=== PATIENT | male | born 1960 ===

== ENCOUNTER 2017-05-14 20:59 | Inpatient (IN) | payer SELFPAY ==
[2017-05-14] MEDS ORDERED: Sodium Chloride 0.9% 1,000 ML IV STA (21:58)
[2017-05-14 22:19] LABS: BASO % 0.5 % (0.0-2.0); EOS % 0.1 % (0.0-4.0); HEMATOCRIT 24.3 % (35.0-51.0); LYMPH # 0.4 K/uL (1.0-4.3); LYMPH % 5.6 % (20.0-40.0); MEAN CELL VOLUME 94.1 fl (80.0-94.0); MEAN CORPUSCULAR HEMOGLOBIN 29.7 pg (27.0-31.0); MEAN CORPUSCULAR HGB CONC 31.6 g/dL (33.0-37.0); MEAN PLATELET VOLUME 7.5 fl (7.2-11.7); MONO # 0.5 K/uL (0.0-0.8); MONO % 6.3 % (0.0-10.0); NEUT # 6.5 K/uL (1.8-7.0); NEUT % 87.5 % (50.0-75.0); PLATELET COUNT 187 K/uL (130-400); RED CELL DISTRIBUTION WIDTH 15.2 % (11.5-14.5); WHITE BLOOD COUNT 7.5 K/uL (4.8-10.8)
[2017-05-14] MEDS ORDERED: levoFLOXacin 750 mg in D5W 750 MG/150 ML BAG IVPB STA (22:20)
[2017-05-14 22:21] LABS: VENOUS BLOOD GAS BASE EXCESS -4.4 mmol/L (0.0-2.0); VENOUS BLOOD GAS PCO2 39 mmHg (40-60); VENOUS BLOOD PH 7.34 (7.32-7.43)
[2017-05-14] MEDS ORDERED: levoFLOXacin 500 mg in D5W 0 MG/0 ML BAG IVPB ONE (22:23)
[2017-05-14 22:25] LABS: ALB/GLOB RATIO 1.1 (1.0-2.1); BILIRUBIN,TOTAL 0.3 mg/dl (0.2-1.3); TOTAL PROTEIN 7.2 G/DL (6.3-8.2)
[2017-05-14] MEDS ORDERED: levoFLOXacin 750 mg in D5W 750 MG/150 ML BAG IVPB ONE (22:28)
[2017-05-14 22:33] LABS: CALCIUM 5.2 mg/dL (8.4-10.2)
[2017-05-14 22:51] LABS: BASOPHIL 1 % (0-2); NEUTROPHIL 90 % (42-75); TOTAL CELLS COUNTED 100
--- NOTE | 2017-05-14 22:56 | ED PDOC ---
HPI: Fever Fever Onset Was: 05/14/17 What Antipyretic Given Prior To Arrival: Unknown Have you had recent travel within the past 21 days to any of the following countries: [place], [place], [place] or [place]?: No Does Patient Have Hx Of Febrile Seizures: No Did The Patient Have A Seizure Today: No Symptoms Associated With Fever: denies: Vomiting, Diarrhea, Cough Past Medical History Vital Signs: Last Vital Signs Temp 101.5 F H 05/14/17 21:15 Pulse 110 H 05/14/17 21:15 Resp 24 05/14/17 21:15 BP 146/101 H 05/14/17 21:15 Pulse Ox 94 L 05/14/17 21:15 - Medical History PMH: HTN, Hyperlipidemia, Chronic Kidney Disease (new onset) - Surgical History Surgical History: Appendectomy - Family History Family History: States: Unknown Family Hx - Home Medications Home Medications: Ambulatory Orders Medication Instructions Recorded Calcium Acetate [Phoslo] 1 tab PO DAILY 06/21/16 Chlorthalidone [Hygroton] 25 mg PO DAILY 06/21/16 Ciprofloxacin [Cipro] 500 mg PO BID 7 Days tab 06/21/16 Lisinopril [Zestril] 20 mg PO DAILY 06/21/16 amLODIPine [Norvasc] 5 mg PO DAILY 06/21/16 - Allergies Allergies/Adverse Reactions: Allergies Allergy/AdvReac Type Severity Reaction Status Date / Time Penicillins Allergy RASH Verified 09/14/15 10:55 - Laboratory Results Result Diagrams: 05/14/17 22:02 05/14/17 22:02 - ECG O2 Sat by Pulse Oximetry: 94 Disposition - Disposition
[2017-05-14] MEDS ORDERED: Aztreonam 1 GM in Sodium Chloride 0.9% 100 ML IVPB STA (22:58)
--- NOTE | 2017-05-14 22:59 | ED PDOC ---
HPI: General Adult Time Seen by Provider: 05/14/17 21:24 Chief Complaint (Nursing): Fever Chief Complaint (Provider): Fever and Chills History Per: Patient History/Exam Limitations: no limitations Onset/Duration Of Symptoms: Hrs Have you had recent travel within the past 21 days to any of the following countries: [place], [place], [place] or [place]?: No Current Symptoms Are (Timing): Still Present Additional Complaint(s): Wero Bhatia, a 56 year old male, who has a past medical history of hypertension and hyperlipidemia presents to the ED complaining of fever and chills that started earlier today. Denies chest pain, dizziness, vomiting, diarrhea and difficulty breathing. 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 Past Medical History Reviewed: Historical Data, Nursing Documentation, Vital Signs Vital Signs: Last Vital Signs Temp 98.4 F 05/16/17 08:00 Pulse 71 05/16/17 09:00 Resp 30 H 05/16/17 09:00 BP 161/103 H 05/16/17 09:00 Pulse Ox 97 05/16/17 09:00 - Medical History PMH: HTN, Hyperlipidemia, Chronic Kidney Disease (new onset) - Surgical History Surgical History: Appendectomy - Family History Family History: States: Unknown Family Hx - Living Arrangements Living Arrangements: With Family - Home Medications Home Medications: Ambulatory Orders Medication Instructions Recorded Allopurinol [Zyloprim] 05/15/17 Atorvastatin [Lipitor] 05/15/17 Nebivolol [Bystolic] 05/15/17 oxyCODONE/Acetaminophen 1/2TAB 05/15/17 [Percocet 5-325 mg HALF TAB] - Allergies Allergies/Adverse Reactions: Allergies Allergy/AdvReac Type Severity Reaction Status Date / Time Penicillins Allergy RASH Verified 09/14/15 10:55 Review of Systems Constitutional: Positive for: Fever, Chills Respiratory: Positive for: Other (denies difficulty breathing). Negative for: Cough Gastrointestinal: Negative for: Vomiting, Diarrhea Neurological: Negative for: Dizziness Physical Exam - Reviewed Nursing Documentation Reviewed: Yes Vital Signs Reviewed: Yes - Physical Exam Appears: Positive for: Non-toxic (tremors), Uncomfortable Head Exam: Positive for: ATRAUMATIC, NORMAL INSPECTION, NORMOCEPHALIC Skin: Positive for: Normal Color, Warm, Dry. Negative for: Rash Eye Exam: Positive for: Normal appearance, EOMI, PERRL ENT: Positive for: Normal ENT Inspection (mucous membranes dry) Neck: Positive for: Normal, Painless ROM, Supple Cardiovascular/Chest: Positive for: Tachycardia. Negative for: Regular Rate, Rhythm (regular rate) Respiratory: Positive for: Respiratory Distress (mild respiratory distress), Other. Negative for: Normal Breath Sounds (Tachypneic), Rales, Rhonchi, Wheezing Gastrointestinal/Abdominal: Positive for: Normal Exam, Bowel Sounds, Soft. Negative for: Tenderness, Guarding, Rebound Back: Positive for: Normal Inspection. Negative for: L CVA Tenderness, R CVA Tenderness Extremity: Positive for: Normal ROM. Negative for: Tenderness, Deformity, Swelling Lymphatic: Positive for: Normal Exam. Negative for: Adenopathy Neurologic/Psych: Positive for: Alert, Oriented. Negative for: Gait - Laboratory Results Result Diagrams: 05/16/17 04:20 05/16/17 04:20 - ECG O2 Sat by Pulse Oximetry: 94 (RA) Pulse Ox Interpretation: Normal - Critical Care Total Time (In Min): 60 Documented Critical Care: Time excludes all time spent performint seperately billable procedures Medical Decision Making Medical Decision Makin Initial Impression 56 y/o male presenting with fever of unknown source r/o possible sepsis Differentials: Pneumonia, UTI, Influenza Initial plan: * Type and Screen * VBG * EKG * BNP * CMP * Troponin 1 * Udip * CBC * PTT * Prothrombin Time * CXR * calcium gluconate 1000mg IVP * Levaquin 750mg ini 150ml IVPB * NS 1000mls IV 1000mls/hr * Blood Culture * Urine Culture * Influenza AB * Urinalysis * Reevaluation 2229 CXR reviewed shows that there is right lower lobe and right middle infiltrate and small left lower lobe infiltrate. cardiomegaly. Diagnosis: community acquired pneumonia, CHF, CKD EKG performed: * T-wave inversions in lateral leads * Normal QRS * Rate [address] Castillo for recommends admission and consult vascular /IR tomorrow for dialysis. Admit to hospitalist clinical phlebotomist Dr Erwin Scribe Attestation Documented by Wendy Ramos acting as a scribe for Lamberto White MD. Provider Attestation All medical record entries made by the Scribe were at my direction and personally dictated by me. I have reviewed the chart and agree that the record accurately reflects my personal performance of the history, physical exam, medical decision making, and the department course for this patient. I have also personally directed, reviewed, and agree with the discharge instructions and disposition. Disposition - Clinical Impression Clinical Impression: Bilateral pneumonia, Acute kidney injury superimposed on chronic kidney disease , Sepsis, CHF (congestive heart failure) - Patient ED Disposition Is Patient to be Admitted: Yes Discussed With Dr.: Gerald Erwin Counseled Patient/Family Regarding: Studies Performed, Diagnosis - Disposition Disposition: Routine/Home Disposition Time: 22:30 Condition: GUARDED - Pt Status Changed To: Hospital Disposition Of: Inpatient - Admit Certification Admit to Inpatient:: After my assessment, the patient will require hospitalization for at least two midnights. This is because of the severity of symptoms shown, intensity of services needed, and/or the medical risk in this patient being treated as an outpatient. - POA Present On Arrival: None Core Measure Indicators: Pneumonia
[2017-05-14 23:05] LABS: PARTIAL THROMBOPLASTIN TIME 32.8 Seconds (25.6-37.1)
[2017-05-14 23:18] LABS: TROPONIN I 0.09 ng/mL (0.00-0.120)
--- NOTE | 2017-05-14 23:43 | CP.PCM.HP ---
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 He comes with 2 days of dizziness when he stands up, Fever, Chills, nausea, SOB on exertion, and Body aches. He has been having edemas to both lower extremities for more than a week. In the ED her Temperature was 101.5F and respiratory rate of 24, with a SpO2 of 92% on RA PMH: HTN, HLD, CKD; Urinary retention PSH; Appendectomy; Cystoscopy SH: No cigarette smoking; No illegal drug use; No Alcohol, Live with family FH: States: Unknown Family Hx Allergies: NKDA Medication: Reviewed Present on Admission - Present on Admission Any Indicators Present on Admission: No History of DVT/PE: No History of Uncontrolled Diabetes: No Urinary Catheter: No Decubitus Ulcer Present: No Review of Systems - Constitutional Constitutional: Chills, Fatigue, Fever, Weakness. absent: Headache - EENT Eyes: Requires Corrective Lenses. absent: Blurred Vision, Diplopia, Photophobia Ears: absent: Decreased Hearing, Ear Discharge, Ear Pain, Tinnitus Nose/Mouth/Throat: absent: Epistaxis, Nasal Congestion, Nasal Discharge, Sinus Pain, Sinus Pressure - Cardiovascular Cardiovascular: Dyspnea, Leg Edema, Lightheadedness. absent: Chest Pain, Orthopnea, Palpitations - Respiratory Respiratory: Dyspnea. absent: Cough, Dyspnea on Exertion, Wheezing, Stridor - Gastrointestinal Gastrointestinal: Constipation, Nausea, Vomiting. absent: Abdominal Pain, Diarrhea - Genitourinary Genitourinary: absent: Dysuria, Flank Pain, Hematuria, Urinary Frequency - Musculoskeletal Musculoskeletal: absent: Stiffness Additional comments: Edemas at the ankles - Integumentary Integumentary: absent: Pruritus, Rash, Skin Ulcer, Sores, Striae - Neurological Neurological: Dizziness. absent: Confusion, Focal Weakness, Headaches, Loss of Vision, Syncope, Weakness - Psychiatric Psychiatric: absent: Anxiety, Depression, Panic Attacks - Endocrine Endocrine: absent: Fatigue, Polydipsia, Polyphagia, Polyuria - Hematologic/Lymphatic Hematologic: absent: Easy Bleeding, Easy Bruising Past Patient History - Infectious Disease Hx of Infectious Diseases: None - Past Medical History & Family History Past Medical History?: Yes - Past Social History Smoking Status: Never Smoked Chewing Tobacco Use: No Cigar Use: No Alcohol: None Drugs: Denies Home Situation {Lives}: With Family - CARDIAC Hx Hypertension: Yes - PULMONARY Hx Respiratory Disorders: No - NEUROLOGICAL Hx Neurological Disorder: No - HEENT Hx HEENT Problems: No - RENAL Hx Chronic Kidney Disease: Yes (new onset) - HEMATOLOGICAL/ONCOLOGICAL Hx Blood Disorders: No - INTEGUMENTARY Hx Dermatological Problems: No - MUSCULOSKELETAL/RHEUMATOLOGICAL Hx Musculoskeletal Disorders: No - GASTROINTESTINAL Hx Gastrointestinal Disorders: No - PSYCHIATRIC Hx Substance Use: No - SURGICAL HISTORY Hx Appendectomy: Yes - ANESTHESIA Hx Anesthesia: Yes Hx Anesthesia Reactions: No Meds Allergies/Adverse Reactions: Allergies Allergy/AdvReac Type Severity Reaction Status Date / Time Penicillins Allergy RASH Verified 09/14/15 10:55 Physical Exam - Constitutional Appears: In Acute Distress - Head Exam Head Exam: ATRAUMATIC, NORMAL INSPECTION, NORMOCEPHALIC - Eye Exam Eye Exam: EOMI, Normal appearance Pupil Exam: NORMAL ACCOMODATION, PERRL - ENT Exam ENT Exam: Mucous Membranes Dry, Normal Exam, Normal External Ear Exam, Normal Oropharynx - Neck Exam Neck exam: Positive for: Full Rom, Normal Inspection - Respiratory Exam Additional comments: Inspirator crackles diffuse in both bases . - Cardiovascular Exam Cardiovascular Exam: REGULAR RHYTHM, RRR, +S1, +S2 - GI/Abdominal Exam GI & Abdominal Exam: Normal Bowel Sounds, Soft. absent: Mass, Organomegaly, Tenderness - Rectal Exam Rectal Exam: Deferred - Extremities Exam Extremities exam: Positive for: pedal edema. Negative for: calf tenderness - Back Exam Back exam: NORMAL INSPECTION. absent: CVA tenderness (L), CVA tenderness (R) - Neurological Exam Neurological exam: CN II-XII Intact, Oriented x3, Reflexes Normal - Psychiatric Exam Psychiatric exam: Normal Affect, Normal Mood - Skin Skin Exam: Dry, Intact, Normal Color, Warm Results - Vital Signs Recent Vital Signs: Last Vital Signs Temp 101.5 F H 05/14/17 21:15 Pulse 110 H 05/14/17 21:15 Resp 24 05/14/17 21:15 BP 146/101 H 05/14/17 21:15 Pulse Ox 94 L 05/14/17 23:11 - Labs Result Diagrams: 05/14/17 22:02 05/14/17 22:02 Labs: Laboratory Results - last 24 hr 05/14/17 05/14/17 05/14/17 22:02 22:02 22:02 WBC 7.5 RBC 2.59 L Hgb 7.7 L Hct 24.3 L MCV 94.1 H MCH 29.7 MCHC 31.6 L RDW 15.2 H Plt Count 187 MPV 7.5 Neut % (Auto) 87.5 H Lymph % (Auto) 5.6 L Josephine % (Auto) 6.3 Eos % (Auto) 0.1 Baso % (Auto) 0.5 Neut # 6.5 Lymph # 0.4 L Josephine # 0.5 Eos # 0.0 Baso # 0.0 Neutrophils % (Manual) 90 H Lymphocytes % (Manual) 6 L Monocytes % (Manual) 3 Basophils % (Manual) 1 Platelet Estimate Normal Hypochromasia (manual) Slight Anisocytosis (manual) Slight Macrocytosis (manual) Slight Ovalocytes Slight PT INR APTT pO2 VBG pH VBG pCO2 VBG HCO3 VBG Total CO2 VBG O2 Sat (Calc) VBG Base Excess VBG Potassium Glucose Lactate FiO2 Sodium 142 Potassium 5.0 Chloride 108 H Carbon Dioxide 19 L Anion Gap 20 BUN 71 H Creatinine 10.6 H* Est GFR ( Amer) 6 Est GFR (Non-Af Amer) 5 Random Glucose 109 Calcium 5.2 L* Total Bilirubin 0.3 AST 18 ALT 35 Alkaline Phosphatase 68 Troponin I NT-Pro-B Natriuret Pep Total Protein 7.2 Albumin 3.7 Globulin 3.5 Albumin/Globulin Ratio 1.1 Venous Blood Potassium Influenza Typ A,B (EIA) Negative for flu a/b 05/14/17 05/14/17 05/14/17 22:18 22:44 22:44 WBC RBC Hgb Hct MCV MCH MCHC RDW Plt Count MPV Neut % (Auto) Lymph % (Auto) Josephine % (Auto) Eos % (Auto) Baso % (Auto) Neut # Lymph # Josephine # Eos # Baso # Neutrophils % (Manual) Lymphocytes % (Manual) Monocytes % (Manual) Basophils % (Manual) Platelet Estimate Hypochromasia (manual) Anisocytosis (manual) Macrocytosis (manual) Ovalocytes PT 14.1 H INR 1.2 APTT 32.8 pO2 42 VBG pH 7.34 VBG pCO2 39 L VBG HCO3 20.9 VBG Total CO2 22.2 VBG O2 Sat (Calc) 89.9 H VBG Base Excess -4.4 L VBG Potassium 4.9 Glucose 114 H Lactate 1.0 FiO2 21.0 Sodium 141.0 Potassium Chloride 109.0 H Carbon Dioxide Anion Gap BUN Creatinine Est GFR ( Amer) Est GFR (Non-Af Amer) Random Glucose Calcium Total Bilirubin AST ALT Alkaline Phosphatase Troponin I 0.0900 NT-Pro-B Natriuret Pep 493999 H Total Protein Albumin Globulin Albumin/Globulin Ratio Venous Blood Potassium 4.9 Influenza Typ A,B (EIA) - Imaging and Cardiology Chest x-ray Status: Image reviewed by me Additional comment: Bilateral Alveolar/interstitial infiltrate Assessment & Plan - Assessment and Plan (Free Text) Assessment: #. Bilateral Pneumaonia #. Sepsis #. Anemia #. Acute on Chronic kidney disease Plan: 56 years old male with hx of HTN, CKD, and urinary retention. He comes with 2 days of dizziness when he stands, Fever, Chills, nausea, SOB on exertion , and Body aches. He has edemas to both lower extremities for more than a week. In the ED her Temperature was 101.5F and respiratory rate of 24, with a SpO2 of 92% on RA #. Bilateral Pneumonia - Consult Dr Pacheco Pulmonary - Levofloxacin 750mg q 48hrs - Azactam 1gm Q8hrs - Vancomycin 1gm IVPB stat dose #. Sepsis with temp of 101.5F; HR of 110; RR of 24 and Pneumonia - Treat Pneumonia - consult Dr Wray ID - follow Blood culture - Urinalysis - Urine culture and sensitivity #. Acute on Chronic kidney disease( on 04/02/17 Creatinine was 8.3 and BUN was 62 ); Now 10.6 and 71 - Consultr Dr Castillo Nephrology for Possible dialysis - consult Dr Soto vascular for AV Shunt #. Volume Overload - IV Lasix given - for Dialysis #. Anemia of Chronic Kidney disease - Type and Cross - Transfuse if Hb is less than 7g - Follow Iron profile/ B12 and folic acid #. DVT prophylaxis with SCV. No anticoagulant because of the Low Hemoglobin #. Code Status Full - Date & Time Date: 05/14/17 Time: 23:43
[2017-05-15] MEDS ORDERED: Sodium Chloride 0.9% 1,000 ML IV SCH ×2 (02:00→02:37)
[2017-05-15 04:21] VITALS: BMI 33.8
[2017-05-15 05:50] LABS: IRON 32 ug/dL (49-181)
[2017-05-15 05:51] LABS: BASO % 0.7 % (0.0-2.0); EOS # 0.1 K/uL (0.0-0.7); EOS % 1.1 % (0.0-4.0); HEMATOCRIT 23.9 % (35.0-51.0); LYMPH # 0.8 K/uL (1.0-4.3); LYMPH % 13.7 % (20.0-40.0); MEAN CELL VOLUME 94.3 fl (80.0-94.0); MEAN CORPUSCULAR HEMOGLOBIN 29.5 pg (27.0-31.0); MEAN CORPUSCULAR HGB CONC 31.3 g/dL (33.0-37.0); MEAN PLATELET VOLUME 8.6 fl (7.2-11.7); MONO # 0.4 K/uL (0.0-0.8); MONO % 7.6 % (0.0-10.0); NEUT # 4.4 K/uL (1.8-7.0); NEUT % 76.9 % (50.0-75.0); WHITE BLOOD COUNT 5.7 K/uL (4.8-10.8)
[2017-05-15 06:27] LABS: CALCIUM 5.1 mg/dL (8.4-10.2)
--- NOTE | 2017-05-15 07:10 | CP.PCM.PN ---
Subjective - Date & Time of Evaluation Date of Evaluation: 05/15/17 Time of Evaluation: 07:04 - Subjective Subjective: patient seen and examined at bedside for acute on chronic renal failure. Patient is able to lay flat no longer has orthopnea. Hemodynamically stable and in no acute distress. Denies chest pain denies dyspnea. Patient to have vascular access placed per Dr. Alexis, dialysis per Dr. Castillo. Objective - Vital Signs/Intake and Output Vital Signs (last 24 hours): Temp Pulse Resp BP Pulse Ox 98.3 F 88 22 162/105 H 97 05/15/17 06:00 05/15/17 06:00 05/15/17 06:00 05/15/17 06:00 05/15/17 06:00 Physical exam: Constitutional- cooperative, awake, alert. Head- NCAT, PERRL Eye- PERRL, normal accommodation ENT- normal exam, MMM. Neck- normal inspection, supple, no JVD Respiratory- CTAB, no wheezes rales rhonchi Cardiovascular- RRR, +S1, +S2 no MRG GI/Abdominal- normal bowel sounds, soft, no mass, no hsm Skin- warm, dry Extremities Exam- normal capillary refill, normal inspection Neurological Exam- alert, stable gait Psych- normal mood, normal affect Intake and Output: 05/15/17 05/15/17 06:59 18:59 Intake Total 500 Output Total 630 Balance -130 - Medications Medications: Current Medications Acetaminophen (Tylenol 325mg Tab) 650 mg PO Q4 PRN PRN Reason: Fever >100.4 F Amlodipine Besylate (Norvasc) 5 mg PO DAILY [facility] Aztreonam 500 mg/ Sodium (Chloride) 100 mls @ 100 mls/hr IVPB Q12 [place]EL[place] PRN Reason: Protocol Levofloxacin/Dextrose (Levaquin 500mg) 500 mg in 100 mls @ 333.333 mls/hr IVPB QOTHERDAY [facility] Sodium Chloride (Sodium Chloride 0.9%) 1,000 mls @ 40 mls/hr IV .Q24H [facility] Stop: 05/16/17 01:53 Last Admin: 05/15/17 02:49 Dose: 40 mls/hr Influenza Virus Vaccine (Afluria (Pf)(18yr & Older)) 0.5 ml IM .ONCE ONE Stop: 05/15/17 09:01 Pneumococcal Polyvalent Vaccine (Pneumovax 23 Vaccine) 0.5 ml IM .ONCE ONE Stop: 05/15/17 09:01 - Labs Labs: 05/15/17 04:30 05/15/17 04:30 PT 14.1 Seconds (9.8-13.1) H 05/14/17 22:44 INR 1.2 (0.9-1.2) 05/14/17 22:44 APTT 32.8 Seconds (25.6-37.1) 05/14/17 22:44 Assessment and Plan - Assessment and Plan (Free Text) Plan: 56 years old male with hx of HTN, CKD, and urinary retention. He comes with 2 days of dizziness when he stands, Fever, Chills, nausea, SOB on exertion , and Body aches. He has edemas to both lower extremities for more than a week. In the ED her Temperature was 101.5F and respiratory rate of 24, with a SpO2 of 92% on RA Bilateral Pneumonia - Consult Dr Pacheco Pulmonary - Levofloxacin 750mg q 48hrs - Azactam 1gm Q8hrs - Vancomycin 1gm IVPB stat dose - duo neb PRN Sepsis with temp of 101.5F; HR of 110; RR of 24 and Bilateral Pneumonia - Treat Pneumonia - consult Dr Wray ID - follow Blood culture - Urinalysis - Urine culture and sensitivity Acute on Chronic kidney disease( on 04/02/17 Creatinine was 8.3 and BUN was 62); Now 10.6 and 71 - Consultr Dr Castillo Nephrology for Possible dialysis - consult Dr Soto vascular for AV Shunt Volume Overload, dyspnea - IV Lasix given - Echo pending - for Dialysis Anemia of Chronic Kidney disease - Type and Cross - Transfuse if Hb is less than 7g - Follow Iron profile/ B12 and folic acid DVT prophylaxis with SCV. No anticoagulant because of the Low Hemoglobin Code Status Full
[2017-05-15 07:17] LABS: RBC URINE 2 /hpf (0-3); URINE BILIRUBIN NEGATIVE (NEGATIVE); URINE BLOOD NEGATIVE (NEGATIVE); URINE COLOR YELLOW (YELLOW); URINE GLUCOSE (UA) 50 mg/dL (Normal); URINE KETONE NEGATIVE (NEGATIVE); URINE LEUKOCYTE ESTERASE NEG Leu/uL (Negative); URINE PROTEIN >=500 mg/dL (NEGATIVE); URINE UROBILINOGEN 0.2-1.0 mg/dL (0.2-1.0); WBC URINE 4 /hpf (0-5)
[2017-05-15] MEDS ORDERED: Pneumococcal 23-Valent Vaccine IM ONE (09:00)
[2017-05-15] MEDS ORDERED: Influenza Vaccine 18yr & older 0.5 ML/45 MCG SYR IM ONE (09:00)
--- NOTE | 2017-05-15 09:29 | CP.PCM.CON ---
History of Present Illness - History of Present Illness History of Present Illness: Vascular Surgery- Dr. Soto 56M w/ PMHx of HTN, CKD, and urinary retention. Presented to [facility] of 2 days of dizziness, subjective fevers, nausea, shortness of breath on exertion and body aches. Vascular surgery was consulted for tentative Dialysis catheter placement due to continued elevated BUN/Cr levels. Patient currently having "the shakes" currently AAOx3 Currently denies vision changes, dumbness/tingling in extremities PMH: as stated above PSH; Appendectomy, Cystoscopy ALL: NKDA SocialHx: ETOH use, denies tobacco, recreational drug use Review of Systems - Review of Systems All systems: reviewed and no additional remarkable complaints except - Constitutional Constitutional: As Per HPI Past Patient History - Infectious Disease Hx of Infectious Diseases: None - Past Medical History & Family History Past Medical History?: Yes - Past Social History Smoking Status: Never Smoked Chewing Tobacco Use: No Cigar Use: No Alcohol: None Drugs: Denies Home Situation {Lives}: With Family - CARDIAC Hx Hypertension: Yes - PULMONARY Hx Respiratory Disorders: No - NEUROLOGICAL Hx Neurological Disorder: No - HEENT Hx HEENT Problems: No - RENAL Hx Chronic Kidney Disease: Yes (new onset) - HEMATOLOGICAL/ONCOLOGICAL Hx Blood Disorders: No - INTEGUMENTARY Hx Dermatological Problems: No - MUSCULOSKELETAL/RHEUMATOLOGICAL Hx Musculoskeletal Disorders: No - GASTROINTESTINAL Hx Gastrointestinal Disorders: No - PSYCHIATRIC Hx Substance Use: No - SURGICAL HISTORY Hx Appendectomy: Yes - ANESTHESIA Hx Anesthesia: Yes Hx Anesthesia Reactions: No Meds Allergies/Adverse Reactions: Allergies Allergy/AdvReac Type Severity Reaction Status Date / Time Penicillins Allergy RASH Verified 09/14/15 10:55 - Medications Medications: Current Medications Acetaminophen (Tylenol 325mg Tab) 650 mg PO Q4 PRN PRN Reason: Fever >100.4 F Amlodipine Besylate (Norvasc) 5 mg PO DAILY [facility] Atorvastatin Calcium (Lipitor) 10 mg PO DAILY [facility] Aztreonam 500 mg/ Sodium (Chloride) 50 mls @ 50 mls/hr IVPB Q12 [facility] PRN Reason: Protocol Levofloxacin/Dextrose (Levaquin 500mg) 500 mg in 100 mls @ 333.333 mls/hr IVPB QOTHERDAY [facility] Sodium Chloride (Sodium Chloride 0.9%) 1,000 mls @ 40 mls/hr IV .Q24H [facility] Stop: 05/16/17 01:53 Last Admin: 05/15/17 02:49 Dose: 40 mls/hr Metoprolol Tartrate (Lopressor) 100 mg PO BID [facility] Physical Exam - Constitutional Appears: Toxic, No Acute Distress, Agitated - Head Exam Head Exam: ATRAUMATIC - Eye Exam Eye Exam: Nystagmus. absent: Scleral icterus - ENT Exam ENT Exam: Mucous Membranes Moist - Respiratory Exam Respiratory Exam: Decreased Breath Sounds, NORMAL BREATHING PATTERN. absent: Accessory Muscle Use, Respiratory Distress Additional comments: bi-basilar crackles - Cardiovascular Exam Cardiovascular Exam: Tachycardia, +S1, +S2. absent: Bradycardia - GI/Abdominal Exam GI & Abdominal Exam: Normal Bowel Sounds, Soft. absent: Distended, Guarding, Hernia, Tenderness - Extremities Exam Extremities exam: Positive for: normal inspection, pedal edema Additional comments: +3 pitting pedal edema b/l - Neurological Exam Neurological exam: Alert, Oriented x3 - Psychiatric Exam Psychiatric exam: Normal Affect - Skin Skin Exam: Intact, Normal Color - Additional Findings Additional findings: pt having involuntary shaking. AAOx3. Results - Vital Signs Recent Vital Signs: Last Vital Signs Temp 98.9 F 05/15/17 08:00 Pulse 88 05/15/17 09:00 Resp 20 05/15/17 09:00 BP 160/100 H 05/15/17 09:00 Pulse Ox 100 05/15/17 09:00 - Labs Result Diagrams: 05/15/17 04:30 05/15/17 04:30 Labs: Laboratory Results - last 24 hr 05/14/17 05/14/17 05/14/17 22:02 22:02 22:02 WBC 7.5 RBC 2.59 L Hgb 7.7 L Hct 24.3 L MCV 94.1 H MCH 29.7 MCHC 31.6 L RDW 15.2 H Plt Count 187 MPV 7.5 Neut % (Auto) 87.5 H Lymph % (Auto) 5.6 L [place] % (Auto) 6.3 Eos % (Auto) 0.1 Baso % (Auto) 0.5 Neut # 6.5 Lymph # 0.4 L [place] # 0.5 Eos # 0.0 Baso # 0.0 Neutrophils % (Manual) 90 H Lymphocytes % (Manual) 6 L Monocytes % (Manual) 3 Basophils % (Manual) 1 Platelet Estimate Normal Hypochromasia (manual) Slight Anisocytosis (manual) Slight Macrocytosis (manual) Slight Ovalocytes Slight PT INR APTT pO2 VBG pH VBG pCO2 VBG HCO3 VBG Total CO2 VBG O2 Sat (Calc) VBG Base Excess VBG Potassium Glucose Lactate FiO2 Sodium 142 Potassium 5.0 Chloride 108 H Carbon Dioxide 19 L Anion Gap 20 BUN 71 H Creatinine 10.6 H* Est GFR ( Amer) 6 Est GFR (Non-Af Amer) 5 Random Glucose 109 Calcium 5.2 L* Iron TIBC % Saturation Total Bilirubin 0.3 AST 18 ALT 35 Alkaline Phosphatase 68 Troponin I NT-Pro-B Natriuret Pep Total Protein 7.2 Albumin 3.7 Globulin 3.5 Albumin/Globulin Ratio 1.1 Vitamin B12 Venous Blood Potassium Urine Color Urine Clarity Urine pH Ur Specific [place] Urine Protein Urine Glucose (UA) Urine Ketones Urine Blood Urine Nitrate Urine Bilirubin Urine Urobilinogen Ur Leukocyte Esterase Urine RBC (Auto) Urine Microscopic WBC Influenza Typ A,B (EIA) Negative for flu a/b Blood Type Blood Type Confirm Antibody Screen BBK History Checked 05/14/17 05/14/17 05/14/17 22:18 22:44 22:44 WBC RBC Hgb Hct MCV MCH MCHC RDW Plt Count MPV Neut % (Auto) Lymph % (Auto) [place] % (Auto) Eos % (Auto) Baso % (Auto) Neut # Lymph # [place] # Eos # Baso # Neutrophils % (Manual) Lymphocytes % (Manual) Monocytes % (Manual) Basophils % (Manual) Platelet Estimate Hypochromasia (manual) Anisocytosis (manual) Macrocytosis (manual) Ovalocytes PT INR APTT pO2 42 VBG pH 7.34 VBG pCO2 39 L VBG HCO3 20.9 VBG Total CO2 22.2 VBG O2 Sat (Calc) 89.9 H VBG Base Excess -4.4 L VBG Potassium 4.9 Glucose 114 H Lactate 1.0 FiO2 21.0 Sodium 141.0 Potassium Chloride 109.0 H Carbon Dioxide Anion Gap BUN Creatinine Est GFR ( Amer) Est GFR (Non-Af Amer) Random Glucose Calcium Iron TIBC % Saturation Total Bilirubin AST ALT Alkaline Phosphatase Troponin I 0.0900 NT-Pro-B Natriuret Pep 716646 H Total Protein Albumin Globulin Albumin/Globulin Ratio Vitamin B12 Venous Blood Potassium 4.9 Urine Color Urine Clarity Urine pH Ur Specific [place] Urine Protein Urine Glucose (UA) Urine Ketones Urine Blood Urine Nitrate Urine Bilirubin Urine Urobilinogen Ur Leukocyte Esterase Urine RBC (Auto) Urine Microscopic WBC Influenza Typ A,B (EIA) Blood Type A POSITIVE Blood Type Confirm Antibody Screen Negative BBK History Checked No verified bt 05/14/17 05/15/17 05/15/17 22:44 01:59 04:30 WBC RBC Hgb Hct MCV MCH MCHC RDW Plt Count MPV Neut % (Auto) Lymph % (Auto) [place] % (Auto) Eos % (Auto) Baso % (Auto) Neut # Lymph # [place] # Eos # Baso # Neutrophils % (Manual) Lymphocytes % (Manual) Monocytes % (Manual) Basophils % (Manual) Platelet Estimate Hypochromasia (manual) Anisocytosis (manual) Macrocytosis (manual) Ovalocytes PT 14.1 H INR 1.2 APTT 32.8 pO2 VBG pH VBG pCO2 VBG HCO3 VBG Total CO2 VBG O2 Sat (Calc) VBG Base Excess VBG Potassium Glucose Lactate FiO2 Sodium Potassium Chloride Carbon Dioxide Anion Gap BUN Creatinine Est GFR ( Amer) Est GFR (Non-Af Amer) Random Glucose Calcium Iron TIBC % Saturation Total Bilirubin AST ALT Alkaline Phosphatase Troponin I NT-Pro-B Natriuret Pep Total Protein Albumin Globulin Albumin/Globulin Ratio Vitamin B12 Venous Blood Potassium Urine Color Yellow Urine Clarity Clear Urine pH 6.0 Ur Specific [place] 1.013 Urine Protein >=500 Urine Glucose (UA) 50 Urine Ketones Negative Urine Blood Negative Urine Nitrate Negative Urine Bilirubin Negative Urine Urobilinogen 0.2-1.0 Ur Leukocyte Esterase Neg Urine RBC (Auto) 2 Urine Microscopic WBC 4 Influenza Typ A,B (EIA) Blood Type Blood Type Confirm A POSITIVE Antibody Screen BBK History Checked 05/15/17 05/15/17 05/15/17 04:30 04:30 04:30 WBC 5.7 RBC 2.53 L Hgb 7.5 L Hct 23.9 L MCV 94.3 H MCH 29.5 MCHC 31.3 L RDW 15.0 H Plt Count 171 MPV 8.6 Neut % (Auto) 76.9 H Lymph % (Auto) 13.7 L [place] % (Auto) 7.6 Eos % (Auto) 1.1 Baso % (Auto) 0.7 Neut # 4.4 Lymph # 0.8 L [place] # 0.4 Eos # 0.1 Baso # 0.0 Neutrophils % (Manual) Lymphocytes % (Manual) Monocytes % (Manual) Basophils % (Manual) Platelet Estimate Hypochromasia (manual) Anisocytosis (manual) Macrocytosis (manual) Ovalocytes PT INR APTT pO2 VBG pH VBG pCO2 VBG HCO3 VBG Total CO2 VBG O2 Sat (Calc) VBG Base Excess VBG Potassium Glucose Lactate FiO2 Sodium 143 Potassium 5.0 Chloride 111 H Carbon Dioxide 19 L Anion Gap 18 BUN 68 H Creatinine 10.3 H* Est GFR ( Amer) 6 Est GFR (Non-Af Amer) 5 Random Glucose 94 Calcium 5.1 L* Iron 32 L TIBC 233 L % Saturation 14 L Total Bilirubin AST ALT Alkaline Phosphatase Troponin I NT-Pro-B Natriuret Pep Total Protein Albumin Globulin Albumin/Globulin Ratio Vitamin B12 383 Venous Blood Potassium Urine Color Urine Clarity Urine pH Ur Specific [place] Urine Protein Urine Glucose (UA) Urine Ketones Urine Blood Urine Nitrate Urine Bilirubin Urine Urobilinogen Ur Leukocyte Esterase Urine RBC (Auto) Urine Microscopic WBC Influenza Typ A,B (EIA) Blood Type Blood Type Confirm Antibody Screen BBK History Checked Assessment & Plan - Assessment and Plan (Free Text) Assessment: 56M w/ CHF and Acute on Chronic Kidney Disease Plan: - temporary dialysis catheter placement today - plan for permacath and AV fistula placement tomorrow or - Medical management per ICU team - further recs per Dr. Charles Bueno PGY1
[2017-05-15] MEDS ORDERED: Albuterol-Ipratrop 3 mg / 0.5 (3 ml) UD INH PRN (10:03)
--- NOTE | 2017-05-15 11:13 | RAD ---
HISTORY: fever cough COMPARISON: No prior. FINDINGS: LUNGS: The lungs are well inflated. There is mild pulmonary venous congestion. There is airspace disease in the right perihilar region. PLEURA: No significant pleural effusion identified, no pneumothorax apparent. CARDIOVASCULAR: There is moderate cardiomegaly. OSSEOUS STRUCTURES: No significant abnormalities. VISUALIZED UPPER ABDOMEN: Normal. OTHER FINDINGS: None. IMPRESSION: Moderate cardiomegaly and mild pulmonary venous congestion. Right perihilar airspace disease is concerning for pneumonia. Follow-up is advised.
--- NOTE | 2017-05-15 11:32 | RAD ---
PROCEDURE: CHEST RADIOGRAPH, 1 VIEW HISTORY: vol overload COMPARISON: Single frontal chest 05/14/2017. FINDINGS: LUNGS: Diminishing right perihilar airspace disease. Borderline left basilar patchy airspace disease may be developing. PLEURA: No pleural effusion once again. No pneumothorax bilaterally. CARDIOVASCULAR: Cardiomegaly stable. Mild pulmonary venous congestion still question but diminished likely. Aortic ectasis again apparent. OSSEOUS STRUCTURES: No significant abnormalities. VISUALIZED UPPER ABDOMEN: Normal. OTHER FINDINGS: None. IMPRESSION: Makes pattern of borderline increased left basilar airspace disease and clearly diminished right perihilar infiltrate. Stable cardiomegaly. CHF diminished with limited residual.
[2017-05-15] MEDS ORDERED: Calcium Chloride 1000 mg/10 ml Syringe IV ONE (12:15)
--- NOTE | 2017-05-15 14:46 | CP.PCM.CON ---
History of Present Illness - History of Present Illness History of Present Illness: 56 y/o pt admitted with SOB, f/c, rigors and volume overload. Pt found to have acute on crf, pulm and peripheral edema. On eval pt in ICU. Bp mildly elevated. Pt communicating in short sentences due to sob. Pt was started on Abx and diuretics. He is scheduled for HD. Remainder of history pertained from chart. chart reviewed. discussed with RN. Review of Systems - Review of Systems Systems not reviewed;Unavailable: Acuity of Condition Past Patient History - Infectious Disease Hx of Infectious Diseases: None - Past Medical History & Family History Past Medical History?: Yes - Past Social History Smoking Status: Never Smoked Chewing Tobacco Use: No Cigar Use: No Alcohol: None Drugs: Denies Home Situation {Lives}: With Family - CARDIAC Hx Hypertension: Yes - PULMONARY Hx Respiratory Disorders: No - NEUROLOGICAL Hx Neurological Disorder: No - HEENT Hx HEENT Problems: No - RENAL Hx Chronic Kidney Disease: Yes (new onset) - HEMATOLOGICAL/ONCOLOGICAL Hx Blood Disorders: No - INTEGUMENTARY Hx Dermatological Problems: No - MUSCULOSKELETAL/RHEUMATOLOGICAL Hx Musculoskeletal Disorders: No - GASTROINTESTINAL Hx Gastrointestinal Disorders: No - PSYCHIATRIC Hx Substance Use: No - SURGICAL HISTORY Hx Appendectomy: Yes - ANESTHESIA Hx Anesthesia: Yes Hx Anesthesia Reactions: No Meds Allergies/Adverse Reactions: Allergies Allergy/AdvReac Type Severity Reaction Status Date / Time Penicillins Allergy RASH Verified 09/14/15 10:55 - Medications Medications: Current Medications Acetaminophen (Tylenol 325mg Tab) 650 mg PO Q4 PRN PRN Reason: Fever >100.4 F Albuterol/Ipratropium (Duoneb 3 Mg/0.5 Mg (3 Ml) Ud) 3 ml INH RQ4 PRN PRN Reason: Shortness of Breath Amlodipine Besylate (Norvasc) 5 mg PO DAILY [facility] Last Admin: 05/15/17 09:41 Dose: 5 mg Atorvastatin Calcium (Lipitor) 10 mg PO DAILY [facility] Last Admin: 05/15/17 09:42 Dose: 10 mg Calcium Acetate (Phoslo) 667 mg PO [facility] Aztreonam 500 mg/ Sodium (Chloride) 50 mls @ 50 mls/hr IVPB Q12 [facility] PRN Reason: Protocol Last Admin: 05/15/17 09:53 Dose: 50 mls/hr Levofloxacin/Dextrose (Levaquin 500mg) 500 mg in 100 mls @ 100 mls/hr IVPB QOTHERDAY [facility] Sodium Chloride (Sodium Chloride 0.9%) 1,000 mls @ 40 mls/hr IV .Q24H [facility] Stop: 05/16/17 01:53 Last Admin: 05/15/17 02:49 Dose: 40 mls/hr Metoprolol Tartrate (Lopressor) 100 mg PO BID [facility] Last Admin: 05/15/17 09:41 Dose: 100 mg Sevelamer Carbonate (Renvela) 0.8 gm PO TIDWM [facility] Vitamin B Complex/Vit C/Folic Acid (Nephro-Gregorio) 1 tab PO DAILY [facility] Physical Exam - Constitutional Appears: Toxic - Head Exam Head Exam: ATRAUMATIC, NORMAL INSPECTION, NORMOCEPHALIC - Eye Exam Eye Exam: EOMI, Normal appearance, PERRL Pupil Exam: NORMAL ACCOMODATION, PERRL - ENT Exam ENT Exam: Mucous Membranes Moist, Normal Exam - Neck Exam Neck exam: Positive for: Normal Inspection - Respiratory Exam Respiratory Exam: Decreased Breath Sounds, Rales, Wheezes - Cardiovascular Exam Cardiovascular Exam: Tachycardia, REGULAR RHYTHM, +S1, +S2, Systolic Murmur - GI/Abdominal Exam GI & Abdominal Exam: Normal Bowel Sounds, Soft - Rectal Exam Rectal Exam: Deferred - Extremities Exam Extremities exam: Positive for: pedal edema, pedal pulses present - Back Exam Back exam: NORMAL INSPECTION - Neurological Exam Neurological exam: Alert, Oriented x3 - Psychiatric Exam Psychiatric exam: Anxious - Skin Skin Exam: Rash Additional comments: bl odalis Results - Vital Signs Recent Vital Signs: Last Vital Signs Temp 98.9 F 05/15/17 12:00 Pulse 79 05/15/17 13:00 Resp 30 H 05/15/17 13:00 BP 155/103 H 05/15/17 13:00 Pulse Ox 92 L 05/15/17 13:00 - Labs Result Diagrams: 05/18/17 05:55 05/18/17 05:55 Labs: Laboratory Results - last 24 hr 05/14/17 05/14/17 05/14/17 22:02 22:02 22:02 WBC 7.5 RBC 2.59 L Hgb 7.7 L Hct 24.3 L MCV 94.1 H MCH 29.7 MCHC 31.6 L RDW 15.2 H Plt Count 187 MPV 7.5 Neut % (Auto) 87.5 H Lymph % (Auto) 5.6 L [place] % (Auto) 6.3 Eos % (Auto) 0.1 Baso % (Auto) 0.5 Neut # 6.5 Lymph # 0.4 L [place] # 0.5 Eos # 0.0 Baso # 0.0 Neutrophils % (Manual) 90 H Lymphocytes % (Manual) 6 L Monocytes % (Manual) 3 Basophils % (Manual) 1 Platelet Estimate Normal Hypochromasia (manual) Slight Anisocytosis (manual) Slight Macrocytosis (manual) Slight Ovalocytes Slight PT INR APTT pO2 VBG pH VBG pCO2 VBG HCO3 VBG Total CO2 VBG O2 Sat (Calc) VBG Base Excess VBG Potassium Glucose Lactate FiO2 Sodium 142 Potassium 5.0 Chloride 108 H Carbon Dioxide 19 L Anion Gap 20 BUN 71 H Creatinine 10.6 H* Est GFR ( Amer) 6 Est GFR (Non-Af Amer) 5 Random Glucose 109 Calcium 5.2 L* Iron TIBC % Saturation Total Bilirubin 0.3 AST 18 ALT 35 Alkaline Phosphatase 68 Troponin I NT-Pro-B Natriuret Pep Total Protein 7.2 Albumin 3.7 Globulin 3.5 Albumin/Globulin Ratio 1.1 Vitamin B12 Venous Blood Potassium Urine Color Urine Clarity Urine pH Ur Specific [place] Urine Protein Urine Glucose (UA) Urine Ketones Urine Blood Urine Nitrate Urine Bilirubin Urine Urobilinogen Ur Leukocyte Esterase Urine RBC (Auto) Urine Microscopic WBC Influenza Typ A,B (EIA) Negative for flu a/b Blood Type Blood Type Confirm Antibody Screen BBK History Checked 05/14/17 05/14/17 05/14/17 22:18 22:44 22:44 WBC RBC Hgb Hct MCV MCH MCHC RDW Plt Count MPV Neut % (Auto) Lymph % (Auto) [place] % (Auto) Eos % (Auto) Baso % (Auto) Neut # Lymph # [place] # Eos # Baso # Neutrophils % (Manual) Lymphocytes % (Manual) Monocytes % (Manual) Basophils % (Manual) Platelet Estimate Hypochromasia (manual) Anisocytosis (manual) Macrocytosis (manual) Ovalocytes PT INR APTT pO2 42 VBG pH 7.34 VBG pCO2 39 L VBG HCO3 20.9 VBG Total CO2 22.2 VBG O2 Sat (Calc) 89.9 H VBG Base Excess -4.4 L VBG Potassium 4.9 Glucose 114 H Lactate 1.0 FiO2 21.0 Sodium 141.0 Potassium Chloride 109.0 H Carbon Dioxide Anion Gap BUN Creatinine Est GFR ( Amer) Est GFR (Non-Af Amer) Random Glucose Calcium Iron TIBC % Saturation Total Bilirubin AST ALT Alkaline Phosphatase Troponin I 0.0900 NT-Pro-B Natriuret Pep [id number] H Total Protein Albumin Globulin Albumin/Globulin Ratio Vitamin B12 Venous Blood Potassium 4.9 Urine Color Urine Clarity Urine pH Ur Specific [place] Urine Protein Urine Glucose (UA) Urine Ketones Urine Blood Urine Nitrate Urine Bilirubin Urine Urobilinogen Ur Leukocyte Esterase Urine RBC (Auto) Urine Microscopic WBC Influenza Typ A,B (EIA) Blood Type A POSITIVE Blood Type Confirm Antibody Screen Negative BBK History Checked No verified bt 05/14/17 05/15/17 05/15/17 22:44 01:59 04:30 WBC RBC Hgb Hct MCV MCH MCHC RDW Plt Count MPV Neut % (Auto) Lymph % (Auto) [place] % (Auto) Eos % (Auto) Baso % (Auto) Neut # Lymph # [place] # Eos # Baso # Neutrophils % (Manual) Lymphocytes % (Manual) Monocytes % (Manual) Basophils % (Manual) Platelet Estimate Hypochromasia (manual) Anisocytosis (manual) Macrocytosis (manual) Ovalocytes PT 14.1 H INR 1.2 APTT 32.8 pO2 VBG pH VBG pCO2 VBG HCO3 VBG Total CO2 VBG O2 Sat (Calc) VBG Base Excess VBG Potassium Glucose Lactate FiO2 Sodium Potassium Chloride Carbon Dioxide Anion Gap BUN Creatinine Est GFR ( Amer) Est GFR (Non-Af Amer) Random Glucose Calcium Iron TIBC % Saturation Total Bilirubin AST ALT Alkaline Phosphatase Troponin I NT-Pro-B Natriuret Pep Total Protein Albumin Globulin Albumin/Globulin Ratio Vitamin B12 Venous Blood Potassium Urine Color Yellow Urine Clarity Clear Urine pH 6.0 Ur Specific [place] 1.013 Urine Protein >=500 Urine Glucose (UA) 50 Urine Ketones Negative Urine Blood Negative Urine Nitrate Negative Urine Bilirubin Negative Urine Urobilinogen 0.2-1.0 Ur Leukocyte Esterase Neg Urine RBC (Auto) 2 Urine Microscopic WBC 4 Influenza Typ A,B (EIA) Blood Type Blood Type Confirm A POSITIVE Antibody Screen BBK History Checked 05/15/17 05/15/17 05/15/17 04:30 04:30 04:30 WBC 5.7 RBC 2.53 L Hgb 7.5 L Hct 23.9 L MCV 94.3 H MCH 29.5 MCHC 31.3 L RDW 15.0 H Plt Count 171 MPV 8.6 Neut % (Auto) 76.9 H Lymph % (Auto) 13.7 L [place] % (Auto) 7.6 Eos % (Auto) 1.1 Baso % (Auto) 0.7 Neut # 4.4 Lymph # 0.8 L [place] # 0.4 Eos # 0.1 Baso # 0.0 Neutrophils % (Manual) Lymphocytes % (Manual) Monocytes % (Manual) Basophils % (Manual) Platelet Estimate Hypochromasia (manual) Anisocytosis (manual) Macrocytosis (manual) Ovalocytes PT INR APTT pO2 VBG pH VBG pCO2 VBG HCO3 VBG Total CO2 VBG O2 Sat (Calc) VBG Base Excess VBG Potassium Glucose Lactate FiO2 Sodium 143 Potassium 5.0 Chloride 111 H Carbon Dioxide 19 L Anion Gap 18 BUN 68 H Creatinine 10.3 H* Est GFR ( Amer) 6 Est GFR (Non-Af Amer) 5 Random Glucose 94 Calcium 5.1 L* Iron 32 L TIBC 233 L % Saturation 14 L Total Bilirubin AST ALT Alkaline Phosphatase Troponin I NT-Pro-B Natriuret Pep Total Protein Albumin Globulin Albumin/Globulin Ratio Vitamin B12 383 Venous Blood Potassium Urine Color Urine Clarity Urine pH Ur Specific [place] Urine Protein Urine Glucose (UA) Urine Ketones Urine Blood Urine Nitrate Urine Bilirubin Urine Urobilinogen Ur Leukocyte Esterase Urine RBC (Auto) Urine Microscopic WBC Influenza Typ A,B (EIA) Blood Type Blood Type Confirm Antibody Screen BBK History Checked Assessment & Plan (1) Volume overload Status: Acute (2) Pulmonary edema Status: Acute (3) Acute kidney injury superimposed on chronic kidney disease Status: Acute (4) Anemia of chronic disease Status: Acute (5) Sepsis Status: Acute - Assessment and Plan (Free Text) Plan: echo done today. results pending. volume overload from renal failure appears to be reason for pulm edema. will need echo to eval if cardiac etiology compounds. will not treat sbp of 150, in order to allow bp to tolerate volume removal. tele shows no arrythmias. d/w rn at length. probnp is due to volume overload and not necessarily heart failure. bc done and pending. abx started. on tylenol for fevers. still rigorous. further recs to follow.
--- NOTE | 2017-05-15 14:57 | CP.CCUPN ---
CCU Subjective - Physician Review Subjective (Free Text): 05/15/17 The Patient was seen and examined at the bedside, Medical records reviewed, and management issues were discussed and formulated with the house staff. Mr Bhatia is a 56 years old male with PMHx of hypertension, hyperlipidemia, CKD, and urinary retention. Who presented to the ER with complaint of Fever/Chills, nausea, SOB on exertion , dizziness when he stands up, and Body aches for the last 2 days. no abd pain no vomiting, No chest pain In the ED he had Temperature 101.5F CXR showed Bilateral Pneumonia Vx pulmonary edema and labs sig for acute on chronic renal failure Thompson cultures, given Lasix and started on IV antibiotics, he is currently feeling better Afebrile Underwent HD access placement and will receive emergent HD CCU Objective - Vital Signs / Intake & Output Vital Signs (Last 4 hours): Vital Signs Temp Pulse Resp BP Pulse Ox 05/15/17 13:00 79 30 H 155/103 H 92 L 05/15/17 12:00 98.9 F 83 39 H 153/101 H 99 05/15/17 11:00 91 H 26 H 153/100 H 95 Intake and Output (Last 8hrs): Intake & Output 05/14/17 05/15/17 05/15/17 22:59 06:59 14:59 Intake Total 500 230 Output Total 630 400 Balance -130 -170 Weight 325 lb 236 lb Intake: IV 130 180 Intake, Piggyback 250 50 Oral 120 Output: Urine 630 400 Urine, Voided 630 400 - Physical Exam Physical Exam Limitations: Positive for: Clinical Condition Head: Positive for: Atraumatic, Normocephalic Pupils: Positive for: PERRL. Negative for: Sluggish, Non-Reactive Extroacular Muscles: Positive for: EOMI. Negative for: Gaze Palsy, Entrapment Conjunctiva: Positive for: Normal. Negative for: Injected, Icteric Mouth: Positive for: Moist Mucous Membranes Pharnyx: Positive for: Normal. Negative for: ERYTHEMA Nose (Internal): Positive for: Normal Inspection Neck: Positive for: Normal Range of Motion, Trachea Midline. Negative for: Meningeal Signs, MIDLINE TENDERNESS, Paraspinal Tenderness, JVD, Lymphadenopathy , Bruit, Other Respiratory/Chest: Positive for: Good Air Exchange, Rales. Negative for: Respiratory Distress, Accessory Muscle Use, Wheezes, Rhonchi Cardiovascular: Positive for: Regular Rate and Rhythm, Normal S1, S2, Peripheal Pulses Present. Negative for: Murmurs, Irregular Rhythm, Tachycardic Abdomen: Positive for: Distention, Normal Bowel Sounds. Negative for: Peritoneal Signs, Guarding Neurological: Positive for: GCS=15, CN II-XII Intact, Speech Normal, Motor Func Grossly Intact, Normal Sensory Function Psychiatric: Positive for: Alert, Oriented x 3, Normal Insight, Normal Concentration - Medications Active Medications: Active Medications Generic Name Dose Route Start Last Admin Trade Name Freq PRN Reason Stop Dose Admin Acetaminophen 650 mg 05/15/17 01:12 Tylenol 325mg Tab PO Q4 PRN Fever >100.4 F Albuterol/Ipratropium 3 ml 05/15/17 10:03 Duoneb 3 Mg/0.5 Mg (3 Ml) Ud INH RQ4 PRN Shortness of Breath Amlodipine Besylate 5 mg 05/15/17 09:00 05/15/17 09:41 Norvasc PO 5 mg DAILY CANELO Administration Atorvastatin Calcium 10 mg 05/15/17 09:00 05/15/17 09:42 Lipitor PO 10 mg DAILY CANELO Administration Calcium Acetate 667 mg 05/15/17 18:30 Phoslo PO WM CANELO Aztreonam 500 mg/ Sodium 50 mls @ 50 mls/hr 05/15/17 09:00 05/15/17 09:53 Chloride IVPB 50 mls/hr Q12 CANELO Administration Protocol Levofloxacin/Dextrose 500 mg in 100 mls @ 100 mls/hr 05/16/17 22:00 Levaquin 500mg IVPB QOTHERDAY CANELO Sodium Chloride 1,000 mls @ 40 mls/hr 05/15/17 02:37 05/15/17 02:49 Sodium Chloride 0.9% IV 05/16/17 01:53 40 mls/hr .Q24H CANELO Administration Metoprolol Tartrate 100 mg 05/15/17 09:00 05/15/17 09:41 Lopressor PO 100 mg BID CANELO Administration Sevelamer Carbonate 0.8 gm 05/15/17 17:00 Renvela PO TIDWM CANELO Vitamin B Complex/Vit C/Folic Acid 1 tab 05/16/17 09:00 Nephro-Gregorio PO DAILY CANELO - Patient Studies Lab Studies: Lab Studies 05/15/17 05/15/17 05/15/17 Range/Units 04:30 04:30 04:30 WBC 5.7 (4.8-10.8) K/uL RBC 2.53 L (4.40-5.90) Mil/uL Hgb 7.5 L (12.0-18.0) g/dL Hct 23.9 L (35.0-51.0) % MCV 94.3 H (80.0-94.0) fl MCH 29.5 (27.0-31.0) pg MCHC 31.3 L (33.0-37.0) g/dL RDW 15.0 H (11.5-14.5) % Plt Count 171 (130-400) K/uL MPV 8.6 (7.2-11.7) fl Neut % (Auto) 76.9 H (50.0-75.0) % Lymph % (Auto) 13.7 L (20.0-40.0) % [place] % (Auto) 7.6 (0.0-10.0) % Eos % (Auto) 1.1 (0.0-4.0) % Baso % (Auto) 0.7 (0.0-2.0) % Neut # 4.4 (1.8-7.0) K/uL Lymph # 0.8 L (1.0-4.3) K/uL [place] # 0.4 (0.0-0.8) K/uL Eos # 0.1 (0.0-0.7) K/uL Baso # 0.0 (0.0-0.2) K/uL Neutrophils % (Manual) (42-75) % Lymphocytes % (Manual) (20-50) % Monocytes % (Manual) (0-10) % Basophils % (Manual) (0-2) % Platelet Estimate (NORMAL) Hypochromasia (manual) Anisocytosis (manual) Macrocytosis (manual) Ovalocytes PT (9.8-13.1) Seconds INR (0.9-1.2) APTT (25.6-37.1) Seconds pO2 (30-55) mm/Hg VBG pH (7.32-7.43) VBG pCO2 (40-60) mmHg VBG HCO3 mmol/L VBG Total CO2 (22-28) mmol/L VBG O2 Sat (Calc) (40-65) % VBG Base Excess (0.0-2.0) mmol/L VBG Potassium (3.6-5.2) mmol/L Glucose (75-110) mg/dL Lactate (0.7-2.1) mmol/L FiO2 % Sodium 143 (132-148) mmol/l Potassium 5.0 (3.6-5.0) MMOL/L Chloride 111 H (98-107) mmol/L Carbon Dioxide 19 L (22-30) mmol/L Anion Gap 18 (10-20) BUN 68 H (9-20) mg/dl Creatinine 10.3 H* (0.8-1.5) mg/dL Est GFR ( Amer) 6 Est GFR (Non-Af Amer) 5 Random Glucose 94 (75-110) mg/dL Calcium 5.1 L* (8.4-10.2) mg/dL Iron 32 L (49-181) ug/dL TIBC 233 L (250-450) ug/dL % Saturation 14 L (20-55) % Total Bilirubin (0.2-1.3) mg/dl AST (17-59) U/L ALT (21-72) U/L Alkaline Phosphatase (38-126) U/L Troponin I (0.00-0.120) ng/mL NT-Pro-B Natriuret Pep (0-900) pg/ml Total Protein (6.3-8.2) G/DL Albumin (3.5-5.0) g/dL Globulin (2.2-3.9) gm/dL Albumin/Globulin Ratio (1.0-2.1) Vitamin B12 383 (239-931) pg/mL Venous Blood Potassium (3.6-5.2) mmol/L Urine Color (YELLOW) Urine Clarity (Clear) Urine pH (5.0-8.0) Ur Specific [place] (1.003-1.030) Urine Protein (NEGATIVE) mg/dL Urine Glucose (UA) (Normal) mg/dL Urine Ketones (NEGATIVE) mg/dL Urine Blood (NEGATIVE) Urine Nitrate (NEGATIVE) Urine Bilirubin (NEGATIVE) Urine Urobilinogen (0.2-1.0) mg/dL Ur Leukocyte Esterase (Negative) Ariel/uL Urine RBC (Auto) (0-3) /hpf Urine Microscopic WBC (0-5) /hpf Influenza Typ A,B (EIA) (NEGATIVE) Blood Type Blood Type Confirm Antibody Screen BBK History Checked 05/15/17 05/15/17 05/14/17 Range/Units 04:30 01:59 22:44 WBC (4.8-10.8) K/uL RBC (4.40-5.90) Mil/uL Hgb (12.0-18.0) g/dL Hct (35.0-51.0) % MCV (80.0-94.0) fl MCH (27.0-31.0) pg MCHC (33.0-37.0) g/dL RDW (11.5-14.5) % Plt Count (130-400) K/uL MPV (7.2-11.7) fl Neut % (Auto) (50.0-75.0) % Lymph % (Auto) (20.0-40.0) % [place] % (Auto) (0.0-10.0) % Eos % (Auto) (0.0-4.0) % Baso % (Auto) (0.0-2.0) % Neut # (1.8-7.0) K/uL Lymph # (1.0-4.3) K/uL [place] # (0.0-0.8) K/uL Eos # (0.0-0.7) K/uL Baso # (0.0-0.2) K/uL Neutrophils % (Manual) (42-75) % Lymphocytes % (Manual) (20-50) % Monocytes % (Manual) (0-10) % Basophils % (Manual) (0-2) % Platelet Estimate (NORMAL) Hypochromasia (manual) Anisocytosis (manual) Macrocytosis (manual) Ovalocytes PT 14.1 H (9.8-13.1) Seconds INR 1.2 (0.9-1.2) APTT 32.8 (25.6-37.1) Seconds pO2 (30-55) mm/Hg VBG pH (7.32-7.43) VBG pCO2 (40-60) mmHg VBG HCO3 mmol/L VBG Total CO2 (22-28) mmol/L VBG O2 Sat (Calc) (40-65) % VBG Base Excess (0.0-2.0) mmol/L VBG Potassium (3.6-5.2) mmol/L Glucose (75-110) mg/dL Lactate (0.7-2.1) mmol/L FiO2 % Sodium (132-148) mmol/l Potassium (3.6-5.0) MMOL/L Chloride (98-107) mmol/L Carbon Dioxide (22-30) mmol/L Anion Gap (10-20) BUN (9-20) mg/dl Creatinine (0.8-1.5) mg/dL Est GFR ( Amer) Est GFR (Non-Af Amer) Random Glucose (75-110) mg/dL Calcium (8.4-10.2) mg/dL Iron (49-181) ug/dL TIBC (250-450) ug/dL % Saturation (20-55) % Total Bilirubin (0.2-1.3) mg/dl AST (17-59) U/L ALT (21-72) U/L Alkaline Phosphatase (38-126) U/L Troponin I (0.00-0.120) ng/mL NT-Pro-B Natriuret Pep (0-900) pg/ml Total Protein (6.3-8.2) G/DL Albumin (3.5-5.0) g/dL Globulin (2.2-3.9) gm/dL Albumin/Globulin Ratio (1.0-2.1) Vitamin B12 (239-931) pg/mL Venous Blood Potassium (3.6-5.2) mmol/L Urine Color Yellow (YELLOW) Urine Clarity Clear (Clear) Urine pH 6.0 (5.0-8.0) Ur Specific [place] 1.013 (1.003-1.030) Urine Protein >=500 (NEGATIVE) mg/dL Urine Glucose (UA) 50 (Normal) mg/dL Urine Ketones Negative (NEGATIVE) mg/dL Urine Blood Negative (NEGATIVE) Urine Nitrate Negative (NEGATIVE) Urine Bilirubin Negative (NEGATIVE) Urine Urobilinogen 0.2-1.0 (0.2-1.0) mg/dL Ur Leukocyte Esterase Neg (Negative) Ariel/uL Urine RBC (Auto) 2 (0-3) /hpf Urine Microscopic WBC 4 (0-5) /hpf Influenza Typ A,B (EIA) (NEGATIVE) Blood Type Blood Type Confirm A POSITIVE Antibody Screen BBK History Checked 05/14/17 05/14/17 05/14/17 Range/Units 22:44 22:44 22:18 WBC (4.8-10.8) K/uL RBC (4.40-5.90) Mil/uL Hgb (12.0-18.0) g/dL Hct (35.0-51.0) % MCV (80.0-94.0) fl MCH (27.0-31.0) pg MCHC (33.0-37.0) g/dL RDW (11.5-14.5) % Plt Count (130-400) K/uL MPV (7.2-11.7) fl Neut % (Auto) (50.0-75.0) % Lymph % (Auto) (20.0-40.0) % [place] % (Auto) (0.0-10.0) % Eos % (Auto) (0.0-4.0) % Baso % (Auto) (0.0-2.0) % Neut # (1.8-7.0) K/uL Lymph # (1.0-4.3) K/uL [place] # (0.0-0.8) K/uL Eos # (0.0-0.7) K/uL Baso # (0.0-0.2) K/uL Neutrophils % (Manual) (42-75) % Lymphocytes % (Manual) (20-50) % Monocytes % (Manual) (0-10) % Basophils % (Manual) (0-2) % Platelet Estimate (NORMAL) Hypochromasia (manual) Anisocytosis (manual) Macrocytosis (manual) Ovalocytes PT (9.8-13.1) Seconds INR (0.9-1.2) APTT (25.6-37.1) Seconds pO2 42 (30-55) mm/Hg VBG pH 7.34 (7.32-7.43) VBG pCO2 39 L (40-60) mmHg VBG HCO3 20.9 mmol/L VBG Total CO2 22.2 (22-28) mmol/L VBG O2 Sat (Calc) 89.9 H (40-65) % VBG Base Excess -4.4 L (0.0-2.0) mmol/L VBG Potassium 4.9 (3.6-5.2) mmol/L Glucose 114 H (75-110) mg/dL Lactate 1.0 (0.7-2.1) mmol/L FiO2 21.0 % Sodium 141.0 (132-148) mmol/l Potassium (3.6-5.0) MMOL/L Chloride 109.0 H (98-107) mmol/L Carbon Dioxide (22-30) mmol/L Anion Gap (10-20) BUN (9-20) mg/dl Creatinine (0.8-1.5) mg/dL Est GFR ( Amer) Est GFR (Non-Af Amer) Random Glucose (75-110) mg/dL Calcium (8.4-10.2) mg/dL Iron (49-181) ug/dL TIBC (250-450) ug/dL % Saturation (20-55) % Total Bilirubin (0.2-1.3) mg/dl AST (17-59) U/L ALT (21-72) U/L Alkaline Phosphatase (38-126) U/L Troponin I 0.0900 (0.00-0.120) ng/mL NT-Pro-B Natriuret Pep [id number] H (0-900) pg/ml Total Protein (6.3-8.2) G/DL Albumin (3.5-5.0) g/dL Globulin (2.2-3.9) gm/dL Albumin/Globulin Ratio (1.0-2.1) Vitamin B12 (239-931) pg/mL Venous Blood Potassium 4.9 (3.6-5.2) mmol/L Urine Color (YELLOW) Urine Clarity (Clear) Urine pH (5.0-8.0) Ur Specific [place] (1.003-1.030) Urine Protein (NEGATIVE) mg/dL Urine Glucose (UA) (Normal) mg/dL Urine Ketones (NEGATIVE) mg/dL Urine Blood (NEGATIVE) Urine Nitrate (NEGATIVE) Urine Bilirubin (NEGATIVE) Urine Urobilinogen (0.2-1.0) mg/dL Ur Leukocyte Esterase (Negative) Ariel/uL Urine RBC (Auto) (0-3) /hpf Urine Microscopic WBC (0-5) /hpf Influenza Typ A,B (EIA) (NEGATIVE) Blood Type A POSITIVE Blood Type Confirm Antibody Screen Negative BBK History Checked No verified bt 05/14/17 05/14/17 05/14/17 Range/Units 22:02 22:02 22:02 WBC 7.5 (4.8-10.8) K/uL RBC 2.59 L (4.40-5.90) Mil/uL Hgb 7.7 L (12.0-18.0) g/dL Hct 24.3 L (35.0-51.0) % MCV 94.1 H (80.0-94.0) fl MCH 29.7 (27.0-31.0) pg MCHC 31.6 L (33.0-37.0) g/dL RDW 15.2 H (11.5-14.5) % Plt Count 187 (130-400) K/uL MPV 7.5 (7.2-11.7) fl Neut % (Auto) 87.5 H (50.0-75.0) % Lymph % (Auto) 5.6 L (20.0-40.0) % [place] % (Auto) 6.3 (0.0-10.0) % Eos % (Auto) 0.1 (0.0-4.0) % Baso % (Auto) 0.5 (0.0-2.0) % Neut # 6.5 (1.8-7.0) K/uL Lymph # 0.4 L (1.0-4.3) K/uL [place] # 0.5 (0.0-0.8) K/uL Eos # 0.0 (0.0-0.7) K/uL Baso # 0.0 (0.0-0.2) K/uL Neutrophils % (Manual) 90 H (42-75) % Lymphocytes % (Manual) 6 L (20-50) % Monocytes % (Manual) 3 (0-10) % Basophils % (Manual) 1 (0-2) % Platelet Estimate Normal (NORMAL) Hypochromasia (manual) Slight Anisocytosis (manual) Slight Macrocytosis (manual) Slight Ovalocytes Slight PT (9.8-13.1) Seconds INR (0.9-1.2) APTT (25.6-37.1) Seconds pO2 (30-55) mm/Hg VBG pH (7.32-7.43) VBG pCO2 (40-60) mmHg VBG HCO3 mmol/L VBG Total CO2 (22-28) mmol/L VBG O2 Sat (Calc) (40-65) % VBG Base Excess (0.0-2.0) mmol/L VBG Potassium (3.6-5.2) mmol/L Glucose (75-110) mg/dL Lactate (0.7-2.1) mmol/L FiO2 % Sodium 142 (132-148) mmol/l Potassium 5.0 (3.6-5.0) MMOL/L Chloride 108 H (98-107) mmol/L Carbon Dioxide 19 L (22-30) mmol/L Anion Gap 20 (10-20) BUN 71 H (9-20) mg/dl Creatinine 10.6 H* (0.8-1.5) mg/dL Est GFR ( Amer) 6 Est GFR (Non-Af Amer) 5 Random Glucose 109 (75-110) mg/dL Calcium 5.2 L* (8.4-10.2) mg/dL Iron (49-181) ug/dL TIBC (250-450) ug/dL % Saturation (20-55) % Total Bilirubin 0.3 (0.2-1.3) mg/dl AST 18 (17-59) U/L ALT 35 (21-72) U/L Alkaline Phosphatase 68 (38-126) U/L Troponin I (0.00-0.120) ng/mL NT-Pro-B Natriuret Pep (0-900) pg/ml Total Protein 7.2 (6.3-8.2) G/DL Albumin 3.7 (3.5-5.0) g/dL Globulin 3.5 (2.2-3.9) gm/dL Albumin/Globulin Ratio 1.1 (1.0-2.1) Vitamin B12 (239-931) pg/mL Venous Blood Potassium (3.6-5.2) mmol/L Urine Color (YELLOW) Urine Clarity (Clear) Urine pH (5.0-8.0) Ur Specific [place] (1.003-1.030) Urine Protein (NEGATIVE) mg/dL Urine Glucose (UA) (Normal) mg/dL Urine Ketones (NEGATIVE) mg/dL Urine Blood (NEGATIVE) Urine Nitrate (NEGATIVE) Urine Bilirubin (NEGATIVE) Urine Urobilinogen (0.2-1.0) mg/dL Ur Leukocyte Esterase (Negative) Ariel/uL Urine RBC (Auto) (0-3) /hpf Urine Microscopic WBC (0-5) /hpf Influenza Typ A,B (EIA) Negative for flu a/b (NEGATIVE) Blood Type Blood Type Confirm Antibody Screen BBK History Checked Laboratory Results - last 24 hr 05/14/17 05/14/17 05/14/17 22:02 22:02 22:02 WBC 7.5 RBC 2.59 L Hgb 7.7 L Hct 24.3 L MCV 94.1 H MCH 29.7 MCHC 31.6 L RDW 15.2 H Plt Count 187 MPV 7.5 Neut % (Auto) 87.5 H Lymph % (Auto) 5.6 L [place] % (Auto) 6.3 Eos % (Auto) 0.1 Baso % (Auto) 0.5 Neut # 6.5 Lymph # 0.4 L [place] # 0.5 Eos # 0.0 Baso # 0.0 Neutrophils % (Manual) 90 H Lymphocytes % (Manual) 6 L Monocytes % (Manual) 3 Basophils % (Manual) 1 Platelet Estimate Normal Hypochromasia (manual) Slight Anisocytosis (manual) Slight Macrocytosis (manual) Slight Ovalocytes Slight PT INR APTT pO2 VBG pH VBG pCO2 VBG HCO3 VBG Total CO2 VBG O2 Sat (Calc) VBG Base Excess VBG Potassium Glucose Lactate FiO2 Sodium 142 Potassium 5.0 Chloride 108 H Carbon Dioxide 19 L Anion Gap 20 BUN 71 H Creatinine 10.6 H* Est GFR ( Amer) 6 Est GFR (Non-Af Amer) 5 Random Glucose 109 Calcium 5.2 L* Iron TIBC % Saturation Total Bilirubin 0.3 AST 18 ALT 35 Alkaline Phosphatase 68 Troponin I NT-Pro-B Natriuret Pep Total Protein 7.2 Albumin 3.7 Globulin 3.5 Albumin/Globulin Ratio 1.1 Vitamin B12 Venous Blood Potassium Urine Color Urine Clarity Urine pH Ur Specific [place] Urine Protein Urine Glucose (UA) Urine Ketones Urine Blood Urine Nitrate Urine Bilirubin Urine Urobilinogen Ur Leukocyte Esterase Urine RBC (Auto) Urine Microscopic WBC Influenza Typ A,B (EIA) Negative for flu a/b Blood Type Blood Type Confirm Antibody Screen BBK History Checked 05/14/17 05/14/17 05/14/17 22:18 22:44 22:44 WBC RBC Hgb Hct MCV MCH MCHC RDW Plt Count MPV Neut % (Auto) Lymph % (Auto) [place] % (Auto) Eos % (Auto) Baso % (Auto) Neut # Lymph # [place] # Eos # Baso # Neutrophils % (Manual) Lymphocytes % (Manual) Monocytes % (Manual) Basophils % (Manual) Platelet Estimate Hypochromasia (manual) Anisocytosis (manual) Macrocytosis (manual) Ovalocytes PT INR APTT pO2 42 VBG pH 7.34 VBG pCO2 39 L VBG HCO3 20.9 VBG Total CO2 22.2 VBG O2 Sat (Calc) 89.9 H VBG Base Excess -4.4 L VBG Potassium 4.9 Glucose 114 H Lactate 1.0 FiO2 21.0 Sodium 141.0 Potassium Chloride 109.0 H Carbon Dioxide Anion Gap BUN Creatinine Est GFR ( Amer) Est GFR (Non-Af Amer) Random Glucose Calcium Iron TIBC % Saturation Total Bilirubin AST ALT Alkaline Phosphatase Troponin I 0.0900 NT-Pro-B Natriuret Pep [id number] H Total Protein Albumin Globulin Albumin/Globulin Ratio Vitamin B12 Venous Blood Potassium 4.9 Urine Color Urine Clarity Urine pH Ur Specific [place] Urine Protein Urine Glucose (UA) Urine Ketones Urine Blood Urine Nitrate Urine Bilirubin Urine Urobilinogen Ur Leukocyte Esterase Urine RBC (Auto) Urine Microscopic WBC Influenza Typ A,B (EIA) Blood Type A POSITIVE Blood Type Confirm Antibody Screen Negative BBK History Checked No verified bt 05/14/17 05/15/17 05/15/17 22:44 01:59 04:30 WBC RBC Hgb Hct MCV MCH MCHC RDW Plt Count MPV Neut % (Auto) Lymph % (Auto) [place] % (Auto) Eos % (Auto) Baso % (Auto) Neut # Lymph # [place] # Eos # Baso # Neutrophils % (Manual) Lymphocytes % (Manual) Monocytes % (Manual) Basophils % (Manual) Platelet Estimate Hypochromasia (manual) Anisocytosis (manual) Macrocytosis (manual) Ovalocytes PT 14.1 H INR 1.2 APTT 32.8 pO2 VBG pH VBG pCO2 VBG HCO3 VBG Total CO2 VBG O2 Sat (Calc) VBG Base Excess VBG Potassium Glucose Lactate FiO2 Sodium Potassium Chloride Carbon Dioxide Anion Gap BUN Creatinine Est GFR ( Amer) Est GFR (Non-Af Amer) Random Glucose Calcium Iron TIBC % Saturation Total Bilirubin AST ALT Alkaline Phosphatase Troponin I NT-Pro-B Natriuret Pep Total Protein Albumin Globulin Albumin/Globulin Ratio Vitamin B12 Venous Blood Potassium Urine Color Yellow Urine Clarity Clear Urine pH 6.0 Ur Specific [place] 1.013 Urine Protein >=500 Urine Glucose (UA) 50 Urine Ketones Negative Urine Blood Negative Urine Nitrate Negative Urine Bilirubin Negative Urine Urobilinogen 0.2-1.0 Ur Leukocyte Esterase Neg Urine RBC (Auto) 2 Urine Microscopic WBC 4 Influenza Typ A,B (EIA) Blood Type Blood Type Confirm A POSITIVE Antibody Screen BBK History Checked 05/15/17 05/15/17 05/15/17 04:30 04:30 04:30 WBC 5.7 RBC 2.53 L Hgb 7.5 L Hct 23.9 L MCV 94.3 H MCH 29.5 MCHC 31.3 L RDW 15.0 H Plt Count 171 MPV 8.6 Neut % (Auto) 76.9 H Lymph % (Auto) 13.7 L [place] % (Auto) 7.6 Eos % (Auto) 1.1 Baso % (Auto) 0.7 Neut # 4.4 Lymph # 0.8 L [place] # 0.4 Eos # 0.1 Baso # 0.0 Neutrophils % (Manual) Lymphocytes % (Manual) Monocytes % (Manual) Basophils % (Manual) Platelet Estimate Hypochromasia (manual) Anisocytosis (manual) Macrocytosis (manual) Ovalocytes PT INR APTT pO2 VBG pH VBG pCO2 VBG HCO3 VBG Total CO2 VBG O2 Sat (Calc) VBG Base Excess VBG Potassium Glucose Lactate FiO2 Sodium 143 Potassium 5.0 Chloride 111 H Carbon Dioxide 19 L Anion Gap 18 BUN 68 H Creatinine 10.3 H* Est GFR ( Amer) 6 Est GFR (Non-Af Amer) 5 Random Glucose 94 Calcium 5.1 L* Iron 32 L TIBC 233 L % Saturation 14 L Total Bilirubin AST ALT Alkaline Phosphatase Troponin I NT-Pro-B Natriuret Pep Total Protein Albumin Globulin Albumin/Globulin Ratio Vitamin B12 383 Venous Blood Potassium Urine Color Urine Clarity Urine pH Ur Specific [place] Urine Protein Urine Glucose (UA) Urine Ketones Urine Blood Urine Nitrate Urine Bilirubin Urine Urobilinogen Ur Leukocyte Esterase Urine RBC (Auto) Urine Microscopic WBC Influenza Typ A,B (EIA) Blood Type Blood Type Confirm Antibody Screen BBK History Checked EKG/Cardiology Studies: Cardiology / EKG Studies 05/15/17 09:00 ELECTROCARDIOGRAM Stat Comment: Mode Of Transportation: Reason For Exam: tachycardia Review of Systems - Cardiovascular Cardiovascular: absent: Chest Pain, Chest Pain at Rest, Chest Pain with Activity - Respiratory Respiratory: Cough, Dyspnea, Dyspnea on Exertion. absent: Hemoptysis, Wheezing , Snoring Critical Care Progress Note - Extremities/Vascular Does the Patient have a Central Venous Catheter?: Yes Does the Patient need a Central Venous Catheter?: Yes Does the Patient have a Ingram Catheter?: No Does the Patient need a Ingram Catheter?: No - Nutrition Nutrition: Nutrition Category Date Time Status NPO Diet [DIET] Diets 05/16/17 Breakfast Active Renal Diet [DIET] Diets 05/15/17 Breakfast Active Assessment/Plan (1) Bilateral pneumonia Current Visit: Yes Status: Acute Comment: - Received 1gm IVPB Vancomycin - Continue Levofloxacin 750mg q 48hrs - Continue Azactam 1gm Q8hrs (2) Acute kidney injury superimposed on chronic kidney disease Current Visit: Yes Status: Acute Comment: Nephrology Consult appretiated, emergent dialysis Suplement calcium Vascular Consult for AV Shunt IV Lasix given (3) Sepsis Current Visit: Yes Status: Acute Comment: ID consult Thompson culjture IV Antibiotics (4) Anemia of chronic disease Current Visit: Yes Status: Acute
--- NOTE | 2017-05-15 16:01 | CON ---
DATE: HISTORY OF PRESENT ILLNESS: Mr. Bhatia is a 56-year-old male who is referred for pulmonary consultation. He was admitted through the hospital service because of dizziness for 2 days, fever with chills, nausea, shortness of breath on exertion and body aches. He was then referred for pulmonary evaluation with a diagnosis of bilateral pneumonia and hypoxemia. The patient is awake and alert, but very tremulous, is able to give some history. PAST MEDICAL HISTORY: Hypertension, hyperlipidemia, chronic kidney disease; has been under the care of a rn telephonic and was getting ready to be dialyzed before symptoms started. He also has a history of appendectomy and cystoscopy. FAMILY HISTORY: Noncontributory. SOCIAL HISTORY: He does not smoke and denies drugs or alcohol use. Indicated that he lives at home with his brother. REVIEW OF SYSTEMS: Essentially unremarkable except for swelling of the legs. PHYSICAL EXAMINATION GENERAL: The patient is alert and oriented, but very tremulous and has shakes of all extremities. VITAL SIGNS: Remarkable for blood pressure of 160/100 with a pulse of 88, respiratory rate is 20. He is afebrile, temperature of 98.9 degrees Fahrenheit. O2 sat 100% on nasal cannula oxygen. SKIN: Shows fair turgor. HEENT: Pupils are equal and reactive to light and accommodation. NECK: JVP flat. Mouth shows fair hygiene. LUNGS: Bilateral coarse rales with dullness at the bases. HEART: S1, S2. ABDOMEN: Soft and nontender. No organomegaly. EXTREMITIES: He has bilateral 2+ pitting pedal edema and has tremors of extremities. CENTRAL NERVOUS SYSTEM: The patient is alert and somewhat oriented and able to give some history. LABORATORY DATA: Remarkable for sodium of 143, potassium of 5.0, BUN of 68, creatinine 10.3. Serum calcium of 5.1, ProBNP 110,000. Troponin 0.09. WBC 5.7, hemoglobin 7.5, platelet count 171,000. Venous blood gas: The pH 7.34, pCO2 of 39, pO2 of 42, O2 sat 89%. Chest x-ray; official report pending, but appears to show cardiomegaly and bilateral pulmonary congestion. EKG; official report pending, but spring coiler shows sinus rhythm. IMPRESSION AND PLAN: A 56-year-old male with history of end-stage renal disease and fever, shortness of breath, hypoxemia and chest x-ray showing bilateral pulmonary infiltrates. This clinical picture is more compatible with fluid overload secondary to renal insufficiency with superimposed pulmonary infection (pneumonia), anemia, appears to be anemia of chronic disease; hypocalcemia secondary to renal disease. One suggest septic workup and appropriate antibiotic therapy. Continue oxygen therapy. The patient may need hemodialysis. Nephrology evaluation already requested. We will continue to follow with you. Further therapy will depend on findings. Osvaldo Pacheco MD
[2017-05-15] MEDS: Sevelamer Carb 0.8 gm/Packet PO SCH (16:29)
--- NOTE | 2017-05-15 16:48 | PCM.PROC ---
<Denisse Augustin - Last Filed: 05/15/17 16:46> Procedures Attestation:: I certify that I have explained the specified Operation(s) or Procedure(s), risks, benefits and reasonable alternatives to the Patient and/or other person responsible. The opportunity was given to ask questions and all questions answered - Central Line Placement Right Femoral Hemodialysis Access Aseptic technique was employed throughout the procedure: Hand Hygiene done prior to procedure, Full sterile barriers (mask, hair cover, sterile gown, sterile gloves), Full body sterile drape, Chloraprep Antiseptic: 2 minute prep for Femoral CVP Time Out Performed: Yes Pt. Placed on Pulse Ox Monitor: Yes Central Line Prep: Chlorhexidine-Alcohol Combination Local Anesthesia Used: Lidocaine 1% Amount of Anesthesia Used (mls): 10 Ultrasound Used for Placement: Yes Central Line Lumen Inserted: double Central Line Length: 20 cm Post Procedure: Sutured in Place, Good Blood Return, All Ports Aspirated, Flushed, Capped, Sterile Dressing Applied Secured by: Suture Post procedure dressing: Clear vapor permeable, Chlorhexidine disc (Biopatch) Post Procedure X-Ray: No Patient Tolerated Procedure: Well <Jason Branch - Last Filed: 05/15/17 18:41> Attending/Attestation - Attestation I have personally seen and examined this patient.: Yes I have fully participated in the care of the patient.: Yes I have reviewed all pertinent clinical information, including history, physical exam and plan: Yes Notes (Text): 05/15/17 18:40 The patient was Seen and examined by me at the bedside, I was present throughout the whole procedure and agree with the finding described in the procedure note by Dr Augustin No complications noted Will call for HD
[2017-05-15] MEDS ORDERED: Calcium Acetate 667 MG Capsule PO SCH (18:30)
--- NOTE | 2017-05-15 19:07 | CP.PCM.CON ---
History of Present Illness - History of Present Illness History of Present Illness: REASONS FOR CONSULT : ADVANCED CKD , PROCEEDING TO ESRD PT IS PROBABLY UREMIC .. 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 PT FAILED TO SCHEDULE THE APPOINTMENT X 2 HPI: This is a 56 years old male with hx of HTN, CKD, and urinary retention. He comes with 2 days of dizziness when he stands up, Fever, Chills, nausea, SOB on exertion, and Body aches. He has been having edemas to both lower extremities for more than a week. In the ED her Temperature was 101.5F and respiratory rate of 24, with a SpO2 of 92% on RA PMH: HTN, HLD, CKD; Urinary retention PSH; Appendectomy; Cystoscopy SH: No cigarette smoking; No illegal drug use; No Alcohol, Live with family FH: States: Unknown Family Hx Allergies: NKDA Medication: Reviewed Past Patient History - Infectious Disease Hx of Infectious Diseases: None - Past Medical History & Family History Past Medical History?: Yes - Past Social History Smoking Status: Never Smoked Chewing Tobacco Use: No Cigar Use: No Alcohol: None Drugs: Denies Home Situation {Lives}: With Family - CARDIAC Hx Hypertension: Yes - PULMONARY Hx Respiratory Disorders: No - NEUROLOGICAL Hx Neurological Disorder: No - HEENT Hx HEENT Problems: No - RENAL Hx Chronic Kidney Disease: Yes (new onset) - HEMATOLOGICAL/ONCOLOGICAL Hx Blood Disorders: No - INTEGUMENTARY Hx Dermatological Problems: No - MUSCULOSKELETAL/RHEUMATOLOGICAL Hx Musculoskeletal Disorders: No - GASTROINTESTINAL Hx Gastrointestinal Disorders: No - PSYCHIATRIC Hx Substance Use: No - SURGICAL HISTORY Hx Appendectomy: Yes - ANESTHESIA Hx Anesthesia: Yes Hx Anesthesia Reactions: No Meds Allergies/Adverse Reactions: Allergies Allergy/AdvReac Type Severity Reaction Status Date / Time Penicillins Allergy RASH Verified 09/14/15 10:55 - Medications Medications: Current Medications Acetaminophen (Tylenol 325mg Tab) 650 mg PO Q4 PRN PRN Reason: Fever >100.4 F Last Admin: 05/15/17 18:55 Dose: 650 mg Albuterol/Ipratropium (Duoneb 3 Mg/0.5 Mg (3 Ml) Ud) 3 ml INH RQ4 PRN PRN Reason: Shortness of Breath Amlodipine Besylate (Norvasc) 5 mg PO DAILY [facility] Last Admin: 05/15/17 09:41 Dose: 5 mg Atorvastatin Calcium (Lipitor) 10 mg PO DAILY [facility] Last Admin: 05/15/17 09:42 Dose: 10 mg Calcium Acetate (Phoslo) 667 mg PO WM [facility] Aztreonam 500 mg/ Sodium (Chloride) 50 mls @ 50 mls/hr IVPB Q12 [facility]ELO PRN Reason: Protocol Last Admin: 05/15/17 09:53 Dose: 50 mls/hr Levofloxacin/Dextrose (Levaquin 500mg) 500 mg in 100 mls @ 100 mls/hr IVPB QOTHERDAY [facility] Sodium Chloride (Sodium Chloride 0.9%) 1,000 mls @ 40 mls/hr IV .Q24H [facility] Stop: 05/16/17 01:53 Last Admin: 05/15/17 02:49 Dose: 40 mls/hr Metoprolol Tartrate (Lopressor) 100 mg PO BID [facility] Last Admin: 05/15/17 16:42 Dose: 100 mg Sevelamer Carbonate (Renvela) 0.8 gm PO TIDWM [facility] Last Admin: 05/15/17 16:29 Dose: 0.8 gm Vitamin B Complex/Vit C/Folic Acid (Nephro-Gregorio) 1 tab PO DAILY [facility] Results - Vital Signs Recent Vital Signs: Last Vital Signs Temp 100.1 F H 05/15/17 18:55 Pulse 82 05/15/17 18:00 Resp 30 H 05/15/17 18:00 BP 149/53 L 05/15/17 18:00 Pulse Ox 100 05/15/17 18:00 - Labs Result Diagrams: 05/15/17 04:30 05/15/17 04:30 Labs: Laboratory Results - last 24 hr 05/14/17 05/14/17 05/14/17 22:02 22:02 22:02 WBC 7.5 RBC 2.59 L Hgb 7.7 L Hct 24.3 L MCV 94.1 H MCH 29.7 MCHC 31.6 L RDW 15.2 H Plt Count 187 MPV 7.5 Neut % (Auto) 87.5 H Lymph % (Auto) 5.6 L [place] % (Auto) 6.3 Eos % (Auto) 0.1 Baso % (Auto) 0.5 Neut # 6.5 Lymph # 0.4 L [place] # 0.5 Eos # 0.0 Baso # 0.0 Neutrophils % (Manual) 90 H Lymphocytes % (Manual) 6 L Monocytes % (Manual) 3 Basophils % (Manual) 1 Platelet Estimate Normal Hypochromasia (manual) Slight Anisocytosis (manual) Slight Macrocytosis (manual) Slight Ovalocytes Slight PT INR APTT pO2 VBG pH VBG pCO2 VBG HCO3 VBG Total CO2 VBG O2 Sat (Calc) VBG Base Excess VBG Potassium Glucose Lactate FiO2 Sodium 142 Potassium 5.0 Chloride 108 H Carbon Dioxide 19 L Anion Gap 20 BUN 71 H Creatinine 10.6 H* Est GFR ( Amer) 6 Est GFR (Non-Af Amer) 5 Random Glucose 109 Calcium 5.2 L* Iron TIBC % Saturation Total Bilirubin 0.3 AST 18 ALT 35 Alkaline Phosphatase 68 Troponin I NT-Pro-B Natriuret Pep Total Protein 7.2 Albumin 3.7 Globulin 3.5 Albumin/Globulin Ratio 1.1 Vitamin B12 Venous Blood Potassium Urine Color Urine Clarity Urine pH Ur Specific [place] Urine Protein Urine Glucose (UA) Urine Ketones Urine Blood Urine Nitrate Urine Bilirubin Urine Urobilinogen Ur Leukocyte Esterase Urine RBC (Auto) Urine Microscopic WBC Influenza Typ A,B (EIA) Negative for flu a/b Blood Type Blood Type Confirm Antibody Screen BBK History Checked 05/14/17 05/14/17 05/14/17 22:18 22:44 22:44 WBC RBC Hgb Hct MCV MCH MCHC RDW Plt Count MPV Neut % (Auto) Lymph % (Auto) [place] % (Auto) Eos % (Auto) Baso % (Auto) Neut # Lymph # [place] # Eos # Baso # Neutrophils % (Manual) Lymphocytes % (Manual) Monocytes % (Manual) Basophils % (Manual) Platelet Estimate Hypochromasia (manual) Anisocytosis (manual) Macrocytosis (manual) Ovalocytes PT INR APTT pO2 42 VBG pH 7.34 VBG pCO2 39 L VBG HCO3 20.9 VBG Total CO2 22.2 VBG O2 Sat (Calc) 89.9 H VBG Base Excess -4.4 L VBG Potassium 4.9 Glucose 114 H Lactate 1.0 FiO2 21.0 Sodium 141.0 Potassium Chloride 109.0 H Carbon Dioxide Anion Gap BUN Creatinine Est GFR ( Amer) Est GFR (Non-Af Amer) Random Glucose Calcium Iron TIBC % Saturation Total Bilirubin AST ALT Alkaline Phosphatase Troponin I 0.0900 NT-Pro-B Natriuret Pep [id number] H Total Protein Albumin Globulin Albumin/Globulin Ratio Vitamin B12 Venous Blood Potassium 4.9 Urine Color Urine Clarity Urine pH Ur Specific [place] Urine Protein Urine Glucose (UA) Urine Ketones Urine Blood Urine Nitrate Urine Bilirubin Urine Urobilinogen Ur Leukocyte Esterase Urine RBC (Auto) Urine Microscopic WBC Influenza Typ A,B (EIA) Blood Type A POSITIVE Blood Type Confirm Antibody Screen Negative BBK History Checked No verified bt 05/14/17 05/15/17 05/15/17 22:44 01:59 04:30 WBC RBC Hgb Hct MCV MCH MCHC RDW Plt Count MPV Neut % (Auto) Lymph % (Auto) [place] % (Auto) Eos % (Auto) Baso % (Auto) Neut # Lymph # [place] # Eos # Baso # Neutrophils % (Manual) Lymphocytes % (Manual) Monocytes % (Manual) Basophils % (Manual) Platelet Estimate Hypochromasia (manual) Anisocytosis (manual) Macrocytosis (manual) Ovalocytes PT 14.1 H INR 1.2 APTT 32.8 pO2 VBG pH VBG pCO2 VBG HCO3 VBG Total CO2 VBG O2 Sat (Calc) VBG Base Excess VBG Potassium Glucose Lactate FiO2 Sodium Potassium Chloride Carbon Dioxide Anion Gap BUN Creatinine Est GFR ( Amer) Est GFR (Non-Af Amer) Random Glucose Calcium Iron TIBC % Saturation Total Bilirubin AST ALT Alkaline Phosphatase Troponin I NT-Pro-B Natriuret Pep Total Protein Albumin Globulin Albumin/Globulin Ratio Vitamin B12 Venous Blood Potassium Urine Color Yellow Urine Clarity Clear Urine pH 6.0 Ur Specific [place] 1.013 Urine Protein >=500 Urine Glucose (UA) 50 Urine Ketones Negative Urine Blood Negative Urine Nitrate Negative Urine Bilirubin Negative Urine Urobilinogen 0.2-1.0 Ur Leukocyte Esterase Neg Urine RBC (Auto) 2 Urine Microscopic WBC 4 Influenza Typ A,B (EIA) Blood Type Blood Type Confirm A POSITIVE Antibody Screen BBK History Checked 05/15/17 05/15/17 05/15/17 04:30 04:30 04:30 WBC 5.7 RBC 2.53 L Hgb 7.5 L Hct 23.9 L MCV 94.3 H MCH 29.5 MCHC 31.3 L RDW 15.0 H Plt Count 171 MPV 8.6 Neut % (Auto) 76.9 H Lymph % (Auto) 13.7 L [place] % (Auto) 7.6 Eos % (Auto) 1.1 Baso % (Auto) 0.7 Neut # 4.4 Lymph # 0.8 L [place] # 0.4 Eos # 0.1 Baso # 0.0 Neutrophils % (Manual) Lymphocytes % (Manual) Monocytes % (Manual) Basophils % (Manual) Platelet Estimate Hypochromasia (manual) Anisocytosis (manual) Macrocytosis (manual) Ovalocytes PT INR APTT pO2 VBG pH VBG pCO2 VBG HCO3 VBG Total CO2 VBG O2 Sat (Calc) VBG Base Excess VBG Potassium Glucose Lactate FiO2 Sodium 143 Potassium 5.0 Chloride 111 H Carbon Dioxide 19 L Anion Gap 18 BUN 68 H Creatinine 10.3 H* Est GFR ( Amer) 6 Est GFR (Non-Af Amer) 5 Random Glucose 94 Calcium 5.1 L* Iron 32 L TIBC 233 L % Saturation 14 L Total Bilirubin AST ALT Alkaline Phosphatase Troponin I NT-Pro-B Natriuret Pep Total Protein Albumin Globulin Albumin/Globulin Ratio Vitamin B12 383 Venous Blood Potassium Urine Color Urine Clarity Urine pH Ur Specific [place] Urine Protein Urine Glucose (UA) Urine Ketones Urine Blood Urine Nitrate Urine Bilirubin Urine Urobilinogen Ur Leukocyte Esterase Urine RBC (Auto) Urine Microscopic WBC Influenza Typ A,B (EIA) Blood Type Blood Type Confirm Antibody Screen BBK History Checked Assessment & Plan - Assessment and Plan (Free Text) Assessment: CKD PROCEEDING TO ESRD .. PT IS UREMIC .. NEEDS HD ALAN ANEMIA OF CKD .. AND IRON DEFF .. NEEDS IRON SUPLEMENT IV SEVERE HYPOCALCEMIA .. NEEDS HD + CA SUPPLEMENT P : TO ESTABLISH A HD ACCESS TO START HD ALAN I ADJUSTED MEDS WILL F/U VERY CLOSELY
[2017-05-15] MEDS ORDERED: levoFLOXacin 750 mg in D5W 750 MG/150 ML BAG IVPB SCH (22:00)
[2017-05-16 00:50] LABS: FOLATE 9.2 ng/mL
--- NOTE | 2017-05-16 01:51 | PCM.PROC ---
Procedures Attestation:: I certify that I have explained the specified Operation(s) or Procedure(s), risks, benefits and reasonable alternatives to the Patient and/or other person responsible. The opportunity was given to ask questions and all questions answered - Central Line Placement Left Femoral Hemodialysis Access Aseptic technique was employed throughout the procedure: Hand Hygiene done prior to procedure, Full sterile barriers (mask, hair cover, sterile gown, sterile gloves), Chloraprep Antiseptic: 2 minute prep for Femoral Central Line Prep: Chlorhexidine-Alcohol Combination Local Anesthesia Used: With Epinepherine Amount of Anesthesia Used (mls): 5 Ultrasound Used for Placement: Yes Central Line Lumen Inserted: double Central Line Length: 16 cm Post Procedure: Sutured in Place, Good Blood Return, All Ports Aspirated, Flushed, Capped, Sterile Dressing Applied Secured by: Suture Patient Tolerated Procedure: Well, No Complications
[2017-05-16 05:18] LABS: HEMATOCRIT 24.8 % (35.0-51.0); MEAN CELL VOLUME 94.2 fl (80.0-94.0); MEAN CORPUSCULAR HEMOGLOBIN 30.4 pg (27.0-31.0); MEAN CORPUSCULAR HGB CONC 32.2 g/dL (33.0-37.0); RED CELL DISTRIBUTION WIDTH 14.8 % (11.5-14.5); WHITE BLOOD COUNT 7.6 K/uL (4.8-10.8)
[2017-05-16 05:24] LABS: ALB/GLOB RATIO 1.1 (1.0-2.1); BILIRUBIN,TOTAL 0.4 mg/dl (0.2-1.3); CALCIUM 6.6 mg/dL (8.4-10.2); POTASSIUM 4.2 MMOL/L (3.6-5.0); TOTAL PROTEIN 6.9 G/DL (6.3-8.2)
[2017-05-16] MEDS ORDERED: Sodium Chloride 0.9% 1,000 ML IV SCH (06:30)
[2017-05-16] MEDS: Multivitamin Vitamin B Complex (Nephro-Vite) Tab PO SCH (08:27)
[2017-05-16] MEDS: Sevelamer Carb 0.8 gm/Packet PO SCH ×4 (08:28→16:34)
[2017-05-16 09:12] LABS: PHOSPHOROUS 7.1 mg/dl (2.5-4.5)
--- NOTE | 2017-05-16 10:45 | CP.PCM.PN ---
Subjective - Date & Time of Evaluation Date of Evaluation: 05/16/17 Time of Evaluation: 10:45 - Subjective Subjective: SOB LESS TREMORS OF EXTREMITIES PRESENT BUT IMPROVING Objective - Vital Signs/Intake and Output Vital Signs (last 24 hours): Temp Pulse Resp BP Pulse Ox 98.4 F 77 17 164/103 H 98 05/16/17 08:00 05/16/17 10:00 05/16/17 10:00 05/16/17 10:00 05/16/17 10:00 Intake and Output: 05/16/17 05/16/17 06:59 18:59 Intake Total 595 170 Output Total 700 Balance -105 170 - Medications Medications: Current Medications Acetaminophen (Tylenol 325mg Tab) 650 mg PO Q4 PRN PRN Reason: Fever >100.4 F Last Admin: 05/15/17 18:55 Dose: 650 mg Albuterol/Ipratropium (Duoneb 3 Mg/0.5 Mg (3 Ml) Ud) 3 ml INH RQ4 PRN PRN Reason: Shortness of Breath Amlodipine Besylate (Norvasc) 5 mg PO DAILY [facility] Last Admin: 05/16/17 08:27 Dose: 5 mg Atorvastatin Calcium (Lipitor) 10 mg PO DAILY [facility] Last Admin: 05/16/17 08:27 Dose: 10 mg Calcium Acetate (Phoslo) 667 mg PO WM [facility] Last Admin: 05/16/17 08:41 Dose: 667 mg Aztreonam 500 mg/ Sodium (Chloride) 50 mls @ 50 mls/hr IVPB Q12 [facility]EL[facility] PRN Reason: Protocol Last Admin: 05/16/17 09:32 Dose: 50 mls/hr Levofloxacin/Dextrose (Levaquin 500mg) 500 mg in 100 mls @ 100 mls/hr IVPB QOTHERDAY [facility] Sodium Chloride (Sodium Chloride 0.9%) 1,000 mls @ 40 mls/hr IV .Q24H [facility] Stop: 05/17/17 06:21 Last Admin: 05/16/17 06:23 Dose: 40 mls/hr Metoprolol Tartrate (Lopressor) 100 mg PO BID [facility] Last Admin: 05/16/17 05:58 Dose: 100 mg Sevelamer Carbonate (Renvela) 0.8 gm PO TIDWM [facility] Last Admin: 05/16/17 08:28 Dose: 0.8 gm Vitamin B Complex/Vit C/Folic Acid (Nephro-Gregorio) 1 tab PO DAILY [facility] Last Admin: 05/16/17 08:27 Dose: 1 tab - Labs Labs: 05/16/17 04:20 05/16/17 04:20 PT 14.1 Seconds (9.8-13.1) H 05/14/17 22:44 INR 1.2 (0.9-1.2) 05/14/17 22:44 APTT 32.8 Seconds (25.6-37.1) 05/14/17 22:44 - Constitutional Appears: Chronically Ill - Head Exam Head Exam: ATRAUMATIC, NORMAL INSPECTION, NORMOCEPHALIC - Eye Exam Eye Exam: EOMI, Normal appearance, PERRL Pupil Exam: NORMAL ACCOMODATION, PERRL - ENT Exam ENT Exam: Mucous Membranes Moist, Normal Exam - Neck Exam Neck Exam: Full ROM, Normal Inspection. absent: Lymphadenopathy - Respiratory Exam Respiratory Exam: Decreased Breath Sounds, Rales, NORMAL BREATHING PATTERN - Cardiovascular Exam Cardiovascular Exam: REGULAR RHYTHM, +S1, +S2. absent: Murmur - GI/Abdominal Exam GI & Abdominal Exam: Soft, Normal Bowel Sounds. absent: Tenderness - Rectal Exam Rectal Exam: NORMAL INSPECTION - Extremities Exam Extremities Exam: Full ROM, Normal Capillary Refill, Normal Inspection. absent : Joint Swelling, Pedal Edema Additional comments: TREMORS - Back Exam Back Exam: NORMAL INSPECTION - Neurological Exam Neurological Exam: Alert, Awake, CN II-XII Intact, Normal Gait, Oriented x3 - Psychiatric Exam Psychiatric exam: Normal Affect, Normal Mood - Skin Skin Exam: Dry, Intact, Normal Color, Warm Assessment and Plan - Assessment and Plan (Free Text) Assessment: UREMIA CHF ?SUPERIMPOSED PNEUMONIA Plan: CONTINUE PRESENT RX CXR IN AM
[2017-05-16] MEDS ORDERED: Magnesium Sulfate 2 gm/50 ml 2 GM/50 ML BAG IVPB ONE (11:05)
--- NOTE | 2017-05-16 11:11 | CP.PCM.PN ---
Subjective - Date & Time of Evaluation Date of Evaluation: 05/16/17 Time of Evaluation: 11:00 - Subjective Subjective: No fever tremulous no CP no SOB no abd pain Left groin Shiley catheter Objective - Vital Signs/Intake and Output Vital Signs (last 24 hours): Temp Pulse Resp BP Pulse Ox 98.4 F 77 17 164/103 H 98 05/16/17 08:00 05/16/17 10:00 05/16/17 10:00 05/16/17 10:00 05/16/17 10:00 Intake and Output: 05/16/17 05/16/17 06:59 18:59 Intake Total 595 170 Output Total 700 Balance -105 170 - Medications Medications: Current Medications Acetaminophen (Tylenol 325mg Tab) 650 mg PO Q4 PRN PRN Reason: Fever >100.4 F Last Admin: 05/15/17 18:55 Dose: 650 mg Albuterol/Ipratropium (Duoneb 3 Mg/0.5 Mg (3 Ml) Ud) 3 ml INH RQ4 PRN PRN Reason: Shortness of Breath Amlodipine Besylate (Norvasc) 5 mg PO DAILY [facility] Last Admin: 05/16/17 08:27 Dose: 5 mg Atorvastatin Calcium (Lipitor) 10 mg PO DAILY [facility] Last Admin: 05/16/17 08:27 Dose: 10 mg Calcium Acetate (Phoslo) 667 mg PO WM [facility] Last Admin: 05/16/17 08:41 Dose: 667 mg Aztreonam 500 mg/ Sodium (Chloride) 50 mls @ 50 mls/hr IVPB Q12 [facility]EL[facility] PRN Reason: Protocol Last Admin: 05/16/17 09:32 Dose: 50 mls/hr Levofloxacin/Dextrose (Levaquin 500mg) 500 mg in 100 mls @ 100 mls/hr IVPB QOTHERDAY [facility] Sodium Chloride (Sodium Chloride 0.9%) 1,000 mls @ 40 mls/hr IV .Q24H [facility] Stop: 05/17/17 06:21 Last Admin: 05/16/17 06:23 Dose: 40 mls/hr Magnesium Sulfate (Magnesium Sulfate 2 Gm/50 Ml Water) 2 gm in 50 mls @ 50 mls/ hr IVPB ONCE ONE PRN Reason: 2 GM/HR Stop: 05/16/17 12:04 Metoprolol Tartrate (Lopressor) 100 mg PO BID [facility] Last Admin: 05/16/17 05:58 Dose: 100 mg Sevelamer Carbonate (Renvela) 0.8 gm PO TIDWM [facility] Last Admin: 05/16/17 08:28 Dose: 0.8 gm Vitamin B Complex/Vit C/Folic Acid (Nephro-Gregorio) 1 tab PO DAILY [facility] Last Admin: 05/16/17 08:27 Dose: 1 tab - Labs Labs: 05/16/17 04:20 05/16/17 04:20 PT 14.1 Seconds (9.8-13.1) H 05/14/17 22:44 INR 1.2 (0.9-1.2) 05/14/17 22:44 APTT 32.8 Seconds (25.6-37.1) 05/14/17 22:44 - Constitutional Appears: Non-toxic, Older Than Stated Age, Chronically Ill, Other (tremulous) - Head Exam Head Exam: NORMAL INSPECTION, NORMOCEPHALIC - Eye Exam Eye Exam: EOMI, PERRL Pupil Exam: NORMAL ACCOMODATION - ENT Exam ENT Exam: Mucous Membranes Dry, Normal External Ear Exam - Neck Exam Neck Exam: Full ROM. absent: Meningismus - Respiratory Exam Respiratory Exam: Rales, Rhonchi, NORMAL BREATHING PATTERN. absent: Respiratory Distress - Cardiovascular Exam Cardiovascular Exam: REGULAR RHYTHM, +S1, +S2 - GI/Abdominal Exam GI & Abdominal Exam: Soft, Normal Bowel Sounds. absent: Tenderness - Extremities Exam Extremities Exam: Full ROM, Normal Capillary Refill, Pedal Edema. absent: Calf Tenderness - Back Exam Back Exam: Full ROM. absent: CVA tenderness (L), CVA tenderness (R) - Neurological Exam Neurological Exam: Alert, Awake, CN II-XII Intact, Oriented x3 Neuro motor strength exam: Left Upper Extremity: 5, Right Upper Extremity: 5, Left Lower Extremity: 5, Right Lower Extremity: 5 - Psychiatric Exam Psychiatric exam: Flat Affect - Skin Skin Exam: Dry, Normal Color, Warm Assessment and Plan - Assessment and Plan (Free Text) Assessment: 56 years old male with hx of HTN, CKD, and urinary retention, comes with 2 days of dizziness when he stands up , fever, chills, nausea, SOB on exertion, and body aches. He has edema to both lower extremities for more than a week. In the ED her Temperature was 101.5F and respiratory rate of 24, with a SpO2 of 92% on RA. Creatinine 10 Sepsis sec to Pneumonia Pt came with temp of 101.5F; HR of 110; RR of 24 - consult Dr Sky - cont IV Azactam and Levaquin, given Vanco 1 gram x 1 - follow Blood culture Bilateral Pneumonia - Consult Dr Pacheco Pulmonary - Levofloxacin 750mg q 48hrs - Azactam 1gm Q8hrs - Vancomycin 1gm IVPB stat dose - duoneb PRN Acute on Chronic kidney disease stage V ( on 04/02/17 Creatinine was 8.3 and BUN was 62); Now 10.6 and 71 - Consulted Dr Castillo Nephrology -Emergent Hemodialysis done - started Renagel and Phoslo for Hyperphosphatemia Hypocalcemia sec to renal Dis , Hyperphosphatemia - Pt on renagel and Phoslo , increase dose - replace Calcium Volume Overload sec to Renal dis - emergent dialysis - IV Lasix given - Echo severe systolic dysfunction, EF 35%, wall motion abn, mod to severe MR Anemia of Chronic Kidney disease - Type and Cross - Transfuse 1unit PRBC with HD HTN - cont Norvasc, Metoprolol DVT prophylaxis - Heparin l
--- NOTE | 2017-05-16 11:15 | CARD ---
APPROVED REPORT EXAM: Two-dimensional and M-mode echocardiogram with Doppler and color Doppler. Other Information Quality : GoodR[employer] : NSR INDICATION Dyspnea 2D DIMENSIONS IVSd1.06 (0.7-1.1cm)LVDd5.67 (3.9-5.9cm) LVOT Diameter2.33 (1.8-2.4cm)PWd0.97 (0.7-1.1cm) IVSs1.45 (0.8-1.2cm)LVDs4.39 (2.5-4.0cm) FS (%) 22.4 %PWs1.21 (0.8-1.2cm) M-Mode DIMENSIONS Left Atrium (MM)5.46 (2.5-4.0cm)IVSd1.03 (0.7-1.1cm) Aortic Root3.67 (2.2-3.7cm)LVDd7.18 (4.0-5.6cm) Aortic Cusp Exc.2.15 (1.5-2.0cm)PWd1.29 (0.7-1.1cm) IVSs1.69 cmFS (%) 35 % LVDs4.70 (2.0-3.8cm)PWs1.89 cm Mitral Valve E/A ratio0.0 TDI E/Lateral E'0.0E/Medial E'0.0 Pulmonary Valve PV Peak Rhpfnfql38.6cm/s LEFT VENTRICLE The left ventricle is normal size. There is normal left ventricular wall thickness. Left ventricle systolic function is moderately to severely impaired. The Ejection Fraction is 35-40%. The anterior wall and anterior septum are hypokinetic. Transmitral Doppler flow pattern is Grade II-pseudonormal filling dynamics. No left ventricle thrombus noted on this study. There is no ventricular septal defect visualized. There is no left ventricular aneurysm. There is no mass noted in the left ventricle. RIGHT VENTRICLE The right ventricle is normal size. There is normal right ventricular wall thickness. The right ventricular systolic function is normal. ATRIA The left atrium is mildly dilated. The right atrium size is normal. The interatrial septum is intact with no evidence for an atrial septal defect. AORTIC VALVE The aortic valve is normal in structure. No aortic regurgitation is present. There is no aortic valvular stenosis. There is no aortic valvular vegetation. MITRAL VALVE The mitral valve is normal in structure. There is no evidence of mitral valve prolapse. There is no mitral valve stenosis. Mitral regurgitation is moderate to severe. TRICUSPID VALVE The tricuspid valve is normal in structure. There is no tricuspid valve regurgitation noted. There is no tricuspid valve prolapse or vegetation. There is no tricuspid valve stenosis. PULMONIC VALVE The pulmonary valve is normal in structure. There is no pulmonic valvular regurgitation. There is no pulmonic valvular stenosis. GREAT VESSELS The aortic root is normal in size. The ascending aorta is normal in size. The IVC is normal in size and collapses >50% with inspiration. PERICARDIAL EFFUSION The pericardium appears normal. There is no pleural effusion. <Conclusion> Moderate to Severe Reduction in LV systolic function LVEF 35-40% LAD regional wall motion abnormality Moderate to Severe Mitral Regurgitation
--- NOTE | 2017-05-16 11:49 | CP.PCM.CON ---
History of Present Illness - History of Present Illness History of Present Illness: 56 years old male with hx of HTN, CKD, and urinary retention. He comes with 2 days of dizziness when he stands up, Fever, Chills, nausea, SOB on exertion, and Body aches. He has no more fever and feels better Past Patient History - Infectious Disease Hx of Infectious Diseases: None - Past Medical History & Family History Past Medical History?: Yes - Past Social History Smoking Status: Never Smoked Chewing Tobacco Use: No Cigar Use: No Alcohol: None Drugs: Denies Home Situation {Lives}: With Family - CARDIAC Hx Hypertension: Yes - PULMONARY Hx Respiratory Disorders: No - NEUROLOGICAL Hx Neurological Disorder: No - HEENT Hx HEENT Problems: No - RENAL Hx Chronic Kidney Disease: Yes (new onset) - HEMATOLOGICAL/ONCOLOGICAL Hx Blood Disorders: No - INTEGUMENTARY Hx Dermatological Problems: No - MUSCULOSKELETAL/RHEUMATOLOGICAL Hx Musculoskeletal Disorders: No - GASTROINTESTINAL Hx Gastrointestinal Disorders: No - PSYCHIATRIC Hx Substance Use: No - SURGICAL HISTORY Hx Appendectomy: Yes - ANESTHESIA Hx Anesthesia: Yes Hx Anesthesia Reactions: No Meds Allergies/Adverse Reactions: Allergies Allergy/AdvReac Type Severity Reaction Status Date / Time Penicillins Allergy RASH Verified 09/14/15 10:55 - Medications Medications: Current Medications Acetaminophen (Tylenol 325mg Tab) 650 mg PO Q4 PRN PRN Reason: Fever >100.4 F Last Admin: 05/15/17 18:55 Dose: 650 mg Albuterol/Ipratropium (Duoneb 3 Mg/0.5 Mg (3 Ml) Ud) 3 ml INH RQ4 PRN PRN Reason: Shortness of Breath Amlodipine Besylate (Norvasc) 5 mg PO DAILY [facility] Last Admin: 05/16/17 08:27 Dose: 5 mg Atorvastatin Calcium (Lipitor) 10 mg PO DAILY [facility] Last Admin: 05/16/17 08:27 Dose: 10 mg Calcium Acetate (Phoslo) 667 mg PO WM COUNT INCLUDES [facility] Last Admin: 05/16/17 08:41 Dose: 667 mg Aztreonam 500 mg/ Sodium (Chloride) 50 mls @ 50 mls/hr IVPB Q12 [facility] PRN Reason: Protocol Last Admin: 05/16/17 09:32 Dose: 50 mls/hr Levofloxacin/Dextrose (Levaquin 500mg) 500 mg in 100 mls @ 100 mls/hr IVPB QOTHERDAY COUNT [facility]CLUDES [facility] Sodium Chloride (Sodium Chloride 0.9%) 1,000 mls @ 40 mls/hr IV .Q24H [facility] Stop: 05/17/17 06:21 Last Admin: 05/16/17 06:23 Dose: 40 mls/hr Magnesium Sulfate (Magnesium Sulfate 2 Gm/50 Ml Water) 2 gm in 50 mls @ 50 mls/ hr IVPB ONCE ONE PRN Reason: 2 GM/HR Stop: 05/16/17 12:04 Last Admin: 05/16/17 11:16 Dose: 50 mls/hr Metoprolol Tartrate (Lopressor) 100 mg PO BID [facility] Last Admin: 05/16/17 05:58 Dose: 100 mg Sevelamer Carbonate (Renvela) 0.8 gm PO TIDWM COUNT [facility]CLUDES [facility] Last Admin: 05/16/17 08:28 Dose: 0.8 gm Vitamin B Complex/Vit C/Folic Acid (Nephro-Gregorio) 1 tab PO DAILY [facility] Last Admin: 05/16/17 08:27 Dose: 1 tab Physical Exam - Respiratory Exam Additional comments: scattered crackles Results - Vital Signs Recent Vital Signs: Last Vital Signs Temp 98.4 F 05/16/17 08:00 Pulse 75 05/16/17 11:00 Resp 21 05/16/17 11:00 BP 147/77 05/16/17 11:00 Pulse Ox 100 05/16/17 11:00 - Labs Result Diagrams: 05/16/17 04:20 05/16/17 04:20 Labs: Laboratory Results - last 24 hr 05/15/17 05/15/17 05/16/17 04:30 23:00 04:20 WBC 7.6 RBC 2.63 L Hgb 8.0 L Hct 24.8 L MCV 94.2 H MCH 30.4 MCHC 32.2 L RDW 14.8 H Plt Count 178 Sodium 143 Potassium 5.0 Chloride 111 H Carbon Dioxide 19 L Anion Gap 18 BUN 68 H Creatinine 10.3 H* Est GFR ( Amer) 6 Est GFR (Non-Af Amer) 5 Random Glucose 94 Calcium 5.1 L* Phosphorus 7.1 H Magnesium 1.0 L* Total Bilirubin AST ALT Alkaline Phosphatase Total Protein Albumin Globulin Albumin/Globulin Ratio Vitamin B12 383 25-OH Vitamin D Total 20.2 L Folate 9.2 05/16/17 04:20 WBC RBC Hgb Hct MCV MCH MCHC RDW Plt Count Sodium 141 Potassium 4.2 Chloride 105 Carbon Dioxide 25 Anion Gap 15 BUN 48 H Creatinine 6.8 H Est GFR ( Amer) 10 Est GFR (Non-Af Amer) 8 Random Glucose 90 Calcium 6.6 L Phosphorus Magnesium Total Bilirubin 0.4 AST 20 ALT 34 Alkaline Phosphatase 70 Total Protein 6.9 Albumin 3.7 Globulin 3.2 Albumin/Globulin Ratio 1.1 Vitamin B12 25-OH Vitamin D Total Folate Assessment & Plan - Assessment and Plan (Free Text) Assessment: Pneumonia in a patient with ESKD and allergic to PCN. clinically improving on Levofloxacin and Azactam. Continue for 1 week.
--- NOTE | 2017-05-16 12:03 | CARD ---
APPROVED REPORT EKG Measurement Heart [id number] <Conclusion> Normal sinus rhythm ST & T wave abnormality, consider lateral ischemia Prolonged QT Abnormal ECG
[2017-05-16] MEDS ORDERED: Lidocaine 1% Inj (20ml) ONE (12:27)
[2017-05-16] MEDS ORDERED: Calcium Gluconate 4.65 mEq/10 ml Inj IV ONE (12:56)
--- NOTE | 2017-05-16 13:00 | CP.PCM.PN ---
Subjective - Date & Time of Evaluation Date of Evaluation: 05/16/17 Time of Evaluation: 12:00 - Subjective Subjective: Vascular Surgery Dr. Soto Pt S&E in PACU. Pt had new temporary dialysis catheter placed last night for emergent dialysis. Pt tolerated the procedure and HD w/ no complications. NAEO. Pt was scheduled for permacath placement this afternoon, however surgery canceled 2/2 severe hypocalcemia. Pt denies F/C, N/V. Pt was NPO overnight for surgery. Objective - Vital Signs/Intake and Output Vital Signs (last 24 hours): Temp Pulse Resp BP Pulse Ox 99.2 F 83 18 147/77 100 05/16/17 12:00 05/16/17 12:00 05/16/17 12:00 05/16/17 12:00 05/16/17 12:00 Intake and Output: 05/16/17 05/16/17 06:59 18:59 Intake Total 595 250 Output Total 700 Balance -105 250 - Medications Medications: Current Medications Acetaminophen (Tylenol 325mg Tab) 650 mg PO Q4 PRN PRN Reason: Fever >100.4 F Last Admin: 05/15/17 18:55 Dose: 650 mg Albuterol/Ipratropium (Duoneb 3 Mg/0.5 Mg (3 Ml) Ud) 3 ml INH RQ4 PRN PRN Reason: Shortness of Breath Amlodipine Besylate (Norvasc) 5 mg PO DAILY [facility] Last Admin: 05/16/17 08:27 Dose: 5 mg Atorvastatin Calcium (Lipitor) 10 mg PO DAILY [facility] Last Admin: 05/16/17 08:27 Dose: 10 mg Calcium Acetate (Phoslo) 667 mg PO WM [facility] Last Admin: 05/16/17 11:58 Dose: Not Given Aztreonam 500 mg/ Sodium (Chloride) 50 mls @ 50 mls/hr IVPB Q12 [facility] PRN Reason: Protocol Last Admin: 05/16/17 09:32 Dose: 50 mls/hr Levofloxacin/Dextrose (Levaquin 500mg) 500 mg in 100 mls @ 100 mls/hr IVPB QOTHERDAY [facility] Sodium Chloride (Sodium Chloride 0.9%) 1,000 mls @ 40 mls/hr IV .Q24H [facility] Stop: 05/17/17 06:21 Last Admin: 05/16/17 06:23 Dose: 40 mls/hr Metoprolol Tartrate (Lopressor) 100 mg PO BID [facility] Last Admin: 05/16/17 05:58 Dose: 100 mg Sevelamer Carbonate (Renvela) 0.8 gm PO TIDWM [facility] Last Admin: 05/16/17 11:59 Dose: Not Given Vitamin B Complex/Vit C/Folic Acid (Nephro-Gregorio) 1 tab PO DAILY [facility] Last Admin: 05/16/17 08:27 Dose: 1 tab - Labs Labs: 05/16/17 04:20 05/16/17 04:20 PT 14.1 Seconds (9.8-13.1) H 05/14/17 22:44 INR 1.2 (0.9-1.2) 05/14/17 22:44 APTT 32.8 Seconds (25.6-37.1) 05/14/17 22:44 - Constitutional Appears: Toxic, No Acute Distress - Head Exam Head Exam: NORMAL INSPECTION - Eye Exam Eye Exam: Normal appearance - ENT Exam ENT Exam: Mucous Membranes Moist - Respiratory Exam Respiratory Exam: NORMAL BREATHING PATTERN. absent: Accessory Muscle Use, Respiratory Distress - Cardiovascular Exam Cardiovascular Exam: absent: Bradycardia, Tachycardia - GI/Abdominal Exam GI & Abdominal Exam: Soft. absent: Distended, Tenderness - Exam Additional comments: L groin dialysis catheter in place - Extremities Exam Extremities Exam: Pedal Edema - Neurological Exam Neurological Exam: Alert, Awake, Oriented x3 Additional comments: tremulous - Psychiatric Exam Psychiatric exam: Normal Affect, Normal Mood - Skin Skin Exam: Dry, Intact, Normal Color, Warm Assessment and Plan - Assessment and Plan (Free Text) Assessment: 56 y/o M s/p temporary dialysis catheter placement w/ acute on chronic kidney injury and fluid overload - replete electrolytes PNR - cont dialysis per Nephro - cont medical management per ICU - f/u vein mapping - possible AVF Sunday vs next week pending labs Pt seen and discussed w/ Dr. Charles Augustin DO PGY2
[2017-05-16] MEDS ORDERED: Calcium Acetate 667 MG Capsule PO ONE (13:06)
--- NOTE | 2017-05-16 13:53 | CP.CCUPN ---
CCU Subjective - Physician Review Subjective (Free Text): OR procedure cancelled today due to hypocalcemia and continued tremors and shakes. No arrhythmias noted due to low Ca levels. He denies any new weakness, CP, SOB, headaches, dizziness, visual changes. Underwent initial HD overnight and due again for HD this afternoon / evening. Other vitals and I/O's reviewed. ROS: No other pertinent negs or positives on 10+ system review. PMSFH: All other Nursing and physician documentation reviewed to date; no new pertinent info noted relevant to current medical problems. IMPRESSION / MAJOR PROBLEMS NOW: 1. 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 Chronic Disease anemia 3. Iron Deficiency PLAN; 1. Cautious repletion of Calcium levels while Phosphate levels still elevated. Has been started on PhosLo and Sevelamer. Watch Ca X Phos product. Start Vit D3 supplementation. 2. PermaCath on hold until Calcium levels have improved and tremor symptoms resolve. 3. Could stop IVFs. 4. ECHO reviewed: EF 35-40% with severe MR. Cardiology evjulio. 5. Otherwise stable for Tele Bed for further mgmt. CCU Objective - Vital Signs / Intake & Output Vital Signs (Last 4 hours): Vital Signs Temp Pulse Resp BP Pulse Ox 05/16/17 13:00 78 17 138/74 99 05/16/17 12:00 99.2 F 83 18 147/77 100 05/16/17 11:00 75 21 147/77 100 05/16/17 10:00 77 17 164/103 H 98 Intake and Output (Last 8hrs): Intake & Output 05/15/17 05/16/17 05/16/17 22:59 06:59 14:59 Intake Total 740 475 250 Output Total 450 700 Balance 290 -225 250 Weight 232 lb Intake: IV 280 280 200 Intake, Piggyback 100 50 50 Oral 360 145 Output: Urine 450 700 Urine, Voided 450 700 - Physical Exam Head: Positive for: Atraumatic, Normocephalic Pupils: Positive for: PERRL. Negative for: Sluggish, Non-Reactive Extroacular Muscles: Positive for: EOMI. Negative for: Gaze Palsy, Entrapment Conjunctiva: Positive for: Normal. Negative for: Injected, Icteric Mouth: Positive for: Moist Mucous Membranes Pharnyx: Positive for: Normal. Negative for: ERYTHEMA Nose (Internal): Positive for: Normal Inspection Neck: Positive for: Normal Range of Motion, Trachea Midline. Negative for: Meningeal Signs, MIDLINE TENDERNESS, Paraspinal Tenderness, JVD, Lymphadenopathy , Bruit, Other Respiratory/Chest: Positive for: Good Air Exchange, Rales. Negative for: Respiratory Distress, Accessory Muscle Use, Wheezes, Rhonchi Cardiovascular: Positive for: Regular Rate and Rhythm, Murmurs, Normal S1, S2, Tachycardic. Negative for: Rub Abdomen: Positive for: Distention, Normal Bowel Sounds. Negative for: Peritoneal Signs, Guarding Lower Extremity: Positive for: Edema (++2). Negative for: CALF TENDERNESS, Cyanosis Neurological: Positive for: GCS=15, CN II-XII Intact, Speech Normal, Motor Func Grossly Intact, Normal Sensory Function Psychiatric: Positive for: Alert, Oriented x 3, Normal Insight, Normal Concentration - Medications Active Medications: Active Medications Generic Name Dose Route Start Last Admin Trade Name Freq PRN Reason Stop Dose Admin Acetaminophen 650 mg 05/15/17 01:12 05/15/17 18:55 Tylenol 325mg Tab PO 650 mg Q4 PRN Administration Fever >100.4 F Albuterol/Ipratropium 3 ml 05/15/17 10:03 Duoneb 3 Mg/0.5 Mg (3 Ml) Ud INH RQ4 PRN Shortness of Breath Amlodipine Besylate 5 mg 05/15/17 09:00 05/16/17 08:27 Norvasc PO 5 mg DAILY [facility] Administration Atorvastatin Calcium 10 mg 05/15/17 09:00 05/16/17 08:27 Lipitor PO 10 mg DAILY [facility] Administration Calcium Acetate 1,334 mg 05/16/17 01:30 05/16/17 13:25 Phoslo PO 1,334 mg WM [facility] Administration Aztreonam 500 mg/ Sodium 50 mls @ 50 mls/hr 05/15/17 09:00 05/16/17 09:32 Chloride IVPB 50 mls/hr Q12 [facility] Administration Protocol Levofloxacin/Dextrose 500 mg in 100 mls @ 100 mls/hr 05/16/17 22:00 Levaquin 500mg IVPB QOTHERDAY [facility] Calcium Gluconate 4.6 meq/ 59.8924 mls @ 59.892 mls/hr 05/16/17 13:30 13:46 Sodium Chloride IV 05/16/17 14:29 59.892 mls/hr ONCE ONE Administration Metoprolol Tartrate 100 mg 05/15/17 09:00 05/16/17 05:58 Lopressor PO 100 mg BID [facility] Administration Sevelamer Carbonate 0.8 gm 05/15/17 17:00 05/16/17 13:28 Renvela PO 0.8 gm TIDWM [facility] Administration Vitamin B Complex/Vit C/Folic Acid 1 tab 05/16/17 09:00 05/16/17 08:27 Nephro-Gregorio PO 1 tab DAILY [facility] Administration - Patient Studies Lab Studies: Microbiology Studies 05/15/17 06:45 MRSA Culture (Admit) - Final Naris MRSA NOT DETECTED 05/15/17 06:45 Urine Culture - Final Urine,Clean Catch No Growth (<1,000 CFU/ML) 05/14/17 22:50 Blood Culture - Preliminary Blood NO GROWTH AFTER 24 HOURS Lab Studies 05/16/17 05/16/17 05/15/17 Range/Units 04:20 04:20 23:00 WBC 7.6 (4.8-10.8) K/uL RBC 2.63 L (4.40-5.90) Mil/uL Hgb 8.0 L (12.0-18.0) g/dL Hct 24.8 L (35.0-51.0) % MCV 94.2 H (80.0-94.0) fl MCH 30.4 (27.0-31.0) pg MCHC 32.2 L (33.0-37.0) g/dL RDW 14.8 H (11.5-14.5) % Plt Count 178 (130-400) K/uL Sodium 141 (132-148) mmol/l Potassium 4.2 (3.6-5.0) MMOL/L Chloride 105 (98-107) mmol/L Carbon Dioxide 25 (22-30) mmol/L Anion Gap 15 (10-20) BUN 48 H (9-20) mg/dl Creatinine 6.8 H (0.8-1.5) mg/dl Est GFR ( Amer) 10 Est GFR (Non-Af Amer) 8 Random Glucose 90 (75-110) mg/dL Calcium 6.6 L (8.4-10.2) mg/dL Phosphorus (2.5-4.5) mg/dl Magnesium (1.6-2.3) MG/DL Total Bilirubin 0.4 (0.2-1.3) mg/dl AST 20 (17-59) U/L ALT 34 (21-72) U/L Alkaline Phosphatase 70 (38-126) U/L Total Protein 6.9 (6.3-8.2) G/DL Albumin 3.7 (3.5-5.0) g/dL Globulin 3.2 (2.2-3.9) gm/dL Albumin/Globulin Ratio 1.1 (1.0-2.1) Vitamin B12 (239-931) pg/mL 25-OH Vitamin D Total 20.2 L (30.0-100.0) NG/ML Folate ng/mL 05/15/17 Range/Units 04:30 WBC (4.8-10.8) K/uL RBC (4.40-5.90) Mil/uL Hgb (12.0-18.0) g/dL Hct (35.0-51.0) % MCV (80.0-94.0) fl MCH (27.0-31.0) pg MCHC (33.0-37.0) g/dL RDW (11.5-14.5) % Plt Count (130-400) K/uL Sodium 143 (132-148) mmol/l Potassium 5.0 (3.6-5.0) MMOL/L Chloride 111 H (98-107) mmol/L Carbon Dioxide 19 L (22-30) mmol/L Anion Gap 18 (10-20) BUN 68 H (9-20) mg/dl Creatinine 10.3 H* (0.8-1.5) mg/dl Est GFR ( Amer) 6 Est GFR (Non-Af Amer) 5 Random Glucose 94 (75-110) mg/dL Calcium 5.1 L* (8.4-10.2) mg/dL Phosphorus 7.1 H (2.5-4.5) mg/dl Magnesium 1.0 L* (1.6-2.3) MG/DL Total Bilirubin (0.2-1.3) mg/dl AST (17-59) U/L ALT (21-72) U/L Alkaline Phosphatase (38-126) U/L Total Protein (6.3-8.2) G/DL Albumin (3.5-5.0) g/dL Globulin (2.2-3.9) gm/dL Albumin/Globulin Ratio (1.0-2.1) Vitamin B12 383 (239-931) pg/mL 25-OH Vitamin D Total (30.0-100.0) NG/ML Folate 9.2 ng/mL Laboratory Results - last 24 hr 05/15/17 05/15/17 05/16/17 04:30 23:00 04:20 WBC 7.6 RBC 2.63 L Hgb 8.0 L Hct 24.8 L MCV 94.2 H MCH 30.4 MCHC 32.2 L RDW 14.8 H Plt Count 178 Sodium 143 Potassium 5.0 Chloride 111 H Carbon Dioxide 19 L Anion Gap 18 BUN 68 H Creatinine 10.3 H* Est GFR ( Amer) 6 Est GFR (Non-Af Amer) 5 Random Glucose 94 Calcium 5.1 L* Phosphorus 7.1 H Magnesium 1.0 L* Total Bilirubin AST ALT Alkaline Phosphatase Total Protein Albumin Globulin Albumin/Globulin Ratio Vitamin B12 383 25-OH Vitamin D Total 20.2 L Folate 9.2 05/16/17 04:20 WBC RBC Hgb Hct MCV MCH MCHC RDW Plt Count Sodium 141 Potassium 4.2 Chloride 105 Carbon Dioxide 25 Anion Gap 15 BUN 48 H Creatinine 6.8 H Est GFR ( Amer) 10 Est GFR (Non-Af Amer) 8 Random Glucose 90 Calcium 6.6 L Phosphorus Magnesium Total Bilirubin 0.4 AST 20 ALT 34 Alkaline Phosphatase 70 Total Protein 6.9 Albumin 3.7 Globulin 3.2 Albumin/Globulin Ratio 1.1 Vitamin B12 25-OH Vitamin D Total Folate Review of Systems - Review of Systems All systems: reviewed and no additional remarkable complaints except (as above) Critical Care Progress Note - Nutrition Nutrition: Nutrition Category Date Time Status Renal Diet [DIET] Diets 05/16/17 Lunch Active
[2017-05-16] MEDS: levoFLOXacin 500 mg in D5W 500 MG/100 ML BAG IVPB SCH (23:14)
[2017-05-17 05:38] LABS: BASO % 0.5 % (0.0-2.0); EOS # 0.2 K/uL (0.0-0.7); EOS % 3.5 % (0.0-4.0); HEMATOCRIT 22.7 % (35.0-51.0); LYMPH # 0.8 K/uL (1.0-4.3); LYMPH % 15.1 % (20.0-40.0); MEAN CELL VOLUME 93.3 fl (80.0-94.0); MEAN CORPUSCULAR HEMOGLOBIN 30.4 pg (27.0-31.0); MEAN CORPUSCULAR HGB CONC 32.6 g/dL (33.0-37.0); MEAN PLATELET VOLUME 8.8 fl (7.2-11.7); MONO # 0.5 K/uL (0.0-0.8); MONO % 8.4 % (0.0-10.0); NEUT # 3.9 K/uL (1.8-7.0); NEUT % 72.5 % (50.0-75.0); RED CELL DISTRIBUTION WIDTH 14.9 % (11.5-14.5); WHITE BLOOD COUNT 5.4 K/uL (4.8-10.8)
[2017-05-17 06:14] LABS: BILIRUBIN,TOTAL 0.3 mg/dl (0.2-1.3); CALCIUM 6.7 mg/dL (8.4-10.2); MAGNESIUM 1.9 MG/DL (1.6-2.3); PHOSPHOROUS 4.8 mg/dl (2.5-4.5); POTASSIUM 4.4 MMOL/L (3.6-5.0); TOTAL PROTEIN 6.4 G/DL (6.3-8.2)
--- NOTE | 2017-05-17 06:22 | CP.PCM.PN ---
Subjective - Date & Time of Evaluation Date of Evaluation: 05/17/17 Time of Evaluation: 06:22 - Subjective Subjective: patient seen and examined at bedside for bilateral pneumonia. Hemodynamically stable. No longer tremulous. Has completed 2 sessions of hemodialysis. afebrile 131/77 66 respiratory rate 18 99% on nasal cannula. no complaints at this time denies chest pain and shortness of breath. Objective - Vital Signs/Intake and Output Vital Signs (last 24 hours): Temp Pulse Resp BP Pulse Ox 97.5 F L 77 20 131/83 95 05/17/17 04:00 05/17/17 06:00 05/17/17 06:00 05/17/17 06:00 05/17/17 06:00 Physical exam: Constitutional- cooperative, awake, alert. not tremulous Head- NCAT, PERRL Eye- PERRL, normal accommodation ENT- normal exam, MMM. Neck- normal inspection, supple, no JVD Respiratory- CTAB, no wheezes rales rhonchi Cardiovascular- RRR, +S1, +S2 no MRG GI/Abdominal- normal bowel sounds, soft, no mass, no hsm Skin- warm, dry Extremities Exam- normal capillary refill, normal inspection Neurological Exam- alert, stable gait Psych- normal mood, normal affect Intake and Output: 05/16/17 05/17/17 18:59 06:59 Intake Total 1380 410 Output Total 450 Balance 930 410 - Medications Medications: Current Medications Acetaminophen (Tylenol 325mg Tab) 650 mg PO Q4 PRN PRN Reason: Fever >100.4 F Last Admin: 05/15/17 18:55 Dose: 650 mg Albuterol/Ipratropium (Duoneb 3 Mg/0.5 Mg (3 Ml) Ud) 3 ml INH RQ4 PRN PRN Reason: Shortness of Breath Amlodipine Besylate (Norvasc) 5 mg PO DAILY [facility] Last Admin: 05/16/17 08:27 Dose: 5 mg Atorvastatin Calcium (Lipitor) 10 mg PO DAILY [facility] Last Admin: 05/16/17 08:27 Dose: 10 mg Calcium Acetate (Phoslo) 1,334 mg PO WM [facility] Last Admin: 05/16/17 17:38 Dose: 1,334 mg Heparin Sodium (Porcine) (Heparin) 5,000 units SC Q12 [facility] PRN Reason: Protocol Last Admin: 05/16/17 23:32 Dose: 5,000 units Heparin Sodium (Porcine) (Heparin 1000 Units/ Ml 30ml) 2,000 u IV MWF [facility] PRN Reason: Protocol Stop: 06/17/17 09:01 Aztreonam 500 mg/ Sodium (Chloride) 50 mls @ 50 mls/hr IVPB Q12 [facility] PRN Reason: Protocol Last Admin: 05/16/17 23:32 Dose: 50 mls/hr Levofloxacin/Dextrose (Levaquin 500mg) 500 mg in 100 mls @ 100 mls/hr IVPB QOTHERDAY [facility] Last Admin: 05/16/17 23:14 Dose: 100 mls/hr Metoprolol Tartrate (Lopressor) 100 mg PO BID [facility] Last Admin: 05/16/17 16:33 Dose: 100 mg Sevelamer Carbonate (Renvela) 0.8 gm PO TIDWM [facility] Last Admin: 05/16/17 16:34 Dose: 0.8 gm Vitamin B Complex/Vit C/Folic Acid (Nephro-Gregorio) 1 tab PO DAILY [facility] Last Admin: 05/16/17 08:27 Dose: 1 tab - Labs Labs: 05/17/17 04:30 05/17/17 04:30 PT 14.1 Seconds (9.8-13.1) H 05/14/17 22:44 INR 1.2 (0.9-1.2) 05/14/17 22:44 APTT 32.8 Seconds (25.6-37.1) 05/14/17 22:44 Assessment and Plan - Assessment and Plan (Free Text) Plan: 56 years old male with hx of HTN, CKD, and urinary retention, comes with 2 days of dizziness when he stands up , fever, chills, nausea, SOB on exertion, and body aches. He has edema to both lower extremities for more than a week. In the ED her Temperature was 101.5F and respiratory rate of 24, with a SpO2 of 92% on RA. Creatinine 10 Sepsis sec to Pneumonia Pt came with temp of 101.5F; HR of 110; RR of 24 - consult Dr Sky - cont IV Azactam and Levaquin, complete 1 week - given Vanco 1 gram x 1 - follow Blood culture Bilateral Pneumonia - Consult Dr Pacheco Pulmonary appreciated - Levofloxacin 750mg q 48hrs - Azactam 1gm Q8hrs - Vancomycin 1gm IVPB given once - duoneb PRN Acute on Chronic kidney disease stage V ( on 04/02/17 Creatinine was 8.3 and BUN was 62); Now 10.6 and 71 - Consulted Dr Castillo Nephrology - HD x2 since admission - started Renagel and Phoslo for Hyperphosphatemia Hypocalcemia sec to renal Dis , Hyperphosphatemia - Pt on renagel and Phoslo, increase dose - replace Calcium Volume Overload sec to Renal dis - emergent dialysis completed - IV Lasix given - Echo severe systolic dysfunction, EF 35%, wall motion abn, mod to severe MR Anemia of Chronic Kidney disease - Type and Cross - Transfuse 1unit PRBC with HD HTN - cont Norvasc, Metoprolol DVT prophylaxis - Heparin l
[2017-05-17] MEDS ORDERED: Calcium Gluconate 4.65 mEq/10 ml Inj IV ONE (06:49)
--- NOTE | 2017-05-17 07:53 | CP.PCM.PN ---
Subjective - Date & Time of Evaluation Date of Evaluation: 05/17/17 Time of Evaluation: 07:00 - Subjective Subjective: Vascular Surgery- Dr. Soto Patient seen and examined at bedside this morning. No acute events overnight. Femoral shiley catheter in place. received dialysis yesterday. currently not tremulous after repleate Magnesium. Denies Chest pain, shortness of breath, nausea, vomiting, diarrhea, fevers, chills. Objective - Vital Signs/Intake and Output Vital Signs (last 24 hours): Temp Pulse Resp BP Pulse Ox 97.5 F L 77 20 131/83 95 05/17/17 04:00 05/17/17 06:00 05/17/17 06:00 05/17/17 06:00 05/17/17 06:00 Intake and Output: 05/17/17 05/17/17 06:59 18:59 Intake Total 410 Balance 410 - Medications Medications: Current Medications Acetaminophen (Tylenol 325mg Tab) 650 mg PO Q4 PRN PRN Reason: Fever >100.4 F Last Admin: 05/15/17 18:55 Dose: 650 mg Albuterol/Ipratropium (Duoneb 3 Mg/0.5 Mg (3 Ml) Ud) 3 ml INH RQ4 PRN PRN Reason: Shortness of Breath Amlodipine Besylate (Norvasc) 5 mg PO DAILY [facility] Last Admin: 05/16/17 08:27 Dose: 5 mg Atorvastatin Calcium (Lipitor) 10 mg PO DAILY [facility] Last Admin: 05/16/17 08:27 Dose: 10 mg Calcium Acetate (Phoslo) 1,334 mg PO WM [facility] Last Admin: 05/16/17 17:38 Dose: 1,334 mg Heparin Sodium (Porcine) (Heparin) 5,000 units SC Q12 [facility] PRN Reason: Protocol Last Admin: 05/16/17 23:32 Dose: 5,000 units Heparin Sodium (Porcine) (Heparin 1000 Units/ Ml 30ml) 2,000 u IV MWF [facility] PRN Reason: Protocol Stop: 06/17/17 09:01 Aztreonam 500 mg/ Sodium (Chloride) 50 mls @ 50 mls/hr IVPB Q12 [facility] PRN Reason: Protocol Last Admin: 05/16/17 23:32 Dose: 50 mls/hr Levofloxacin/Dextrose (Levaquin 500mg) 500 mg in 100 mls @ 100 mls/hr IVPB QOTHERDAY [facility] Last Admin: 05/16/17 23:14 Dose: 100 mls/hr Calcium Gluconate 4.6 meq/ (Sodium Chloride) 59.8924 mls @ 59.892 mls/hr IV BID [facility] Stop: 05/17/17 17:59 Metoprolol Tartrate (Lopressor) 100 mg PO BID [facility] Last Admin: 05/16/17 16:33 Dose: 100 mg Sevelamer Carbonate (Renvela) 0.8 gm PO TIDWM [facility] Last Admin: 05/16/17 16:34 Dose: 0.8 gm Vitamin B Complex/Vit C/Folic Acid (Nephro-Gregorio) 1 tab PO DAILY [facility] Last Admin: 05/16/17 08:27 Dose: 1 tab - Labs Labs: 05/17/17 04:30 05/17/17 04:30 PT 14.1 Seconds (9.8-13.1) H 05/14/17 22:44 INR 1.2 (0.9-1.2) 05/14/17 22:44 APTT 32.8 Seconds (25.6-37.1) 05/14/17 22:44 - Constitutional Appears: Non-toxic, No Acute Distress - Head Exam Head Exam: ATRAUMATIC - Eye Exam Eye Exam: EOMI. absent: Scleral icterus - Respiratory Exam Respiratory Exam: NORMAL BREATHING PATTERN. absent: Accessory Muscle Use, Respiratory Distress - Cardiovascular Exam Cardiovascular Exam: Tachycardia, +S1, +S2. absent: Bradycardia - GI/Abdominal Exam GI & Abdominal Exam: Soft. absent: Firm, Guarding, Rigid, Tenderness, Mass, Rebound - Extremities Exam Additional comments: Left femoral shiley catheter in place. dressing and site clean dry and intact. no hematoma or erythema formation. - Back Exam Back Exam: absent: CVA tenderness (L) - Neurological Exam Neurological Exam: Alert, Awake, Oriented x3 - Skin Skin Exam: Normal Color, Warm Assessment and Plan - Assessment and Plan (Free Text) Assessment: 56M acute on chronic end stage renal disease. s/p shiley catheter placement Plan: - continue w/ dialysis treatment - electrolyte replacement PRN - medical management per ICU team - vein mapping pending - plan for AV fistula while in house - further recs per Dr. Charles Bueno PGY1
--- NOTE | 2017-05-17 08:37 | CP.CCUPN ---
CCU Subjective - Physician Review Subjective (Free Text): Sleeping, easily arousable, no obvious tremors, shakes, or fasciculations / twitches or focal weakness. OR procedure cancelled yesterday due to hypocalcemia and continued tremors and shakes. No arrhythmias noted due to low Ca levels. He denies any CP, SOB, headaches, dizziness, visual changes. Underwent two courses of HD so far. Other vitals and I/O's reviewed. ROS: No other pertinent negs or positives on 10+ system review. PMSFH: All other Nursing and physician documentation reviewed to date; no new pertinent info noted relevant to current medical problems. IMPRESSION / MAJOR PROBLEMS NOW: 1. 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 Chronic Disease anemia 3. Iron Deficiency PLAN; 1. Cautious repletion of Calcium levels while Phosphate levels still elevated. Has been started on PhosLo and Sevelamer. Watch {Ca x Phos} product. Start Vit D3 supplementation. Last supplemental doses of Calcium ordered for today, then could stop CaAcetate and continue Sevelamer. 2. PermaCath on hold until Calcium levels have improved and tremor symptoms resolve. 3. Could stop IVFs. 4. ECHO reviewed: EF 35-40% with severe MR. Cardiology eval. 5. Iron supplementation and E-poeitin therapy. 6. Otherwise stable now for regular med / surg dialysis bed for further mgmt. CCU Objective - Vital Signs / Intake & Output Vital Signs (Last 4 hours): Vital Signs Temp Pulse Resp BP Pulse Ox 05/17/17 08:00 98.3 F 80 18 145/87 87 L 05/17/17 06:00 77 20 131/83 95 Intake and Output (Last 8hrs): Intake & Output 05/16/17 05/17/17 05/17/17 22:59 06:59 14:59 Intake Total 780 270 Balance 780 270 Weight 227 lb 9.6 oz Intake: IV 180 20 Intake, Piggyback 250 Oral 600 - Physical Exam Head: Positive for: Atraumatic, Normocephalic Pupils: Positive for: PERRL. Negative for: Sluggish, Non-Reactive Extroacular Muscles: Positive for: EOMI. Negative for: Gaze Palsy, Entrapment Conjunctiva: Positive for: Normal. Negative for: Injected, Icteric Mouth: Positive for: Moist Mucous Membranes Pharnyx: Positive for: Normal. Negative for: ERYTHEMA Nose (Internal): Positive for: Normal Inspection Neck: Positive for: Normal Range of Motion, Trachea Midline. Negative for: Meningeal Signs, MIDLINE TENDERNESS, Paraspinal Tenderness, JVD, Lymphadenopathy , Bruit, Other Respiratory/Chest: Positive for: Good Air Exchange, Rales. Negative for: Respiratory Distress, Accessory Muscle Use, Wheezes, Rhonchi Cardiovascular: Positive for: Regular Rate and Rhythm, Murmurs, Normal S1, S2, Tachycardic. Negative for: Rub Abdomen: Positive for: Distention, Normal Bowel Sounds. Negative for: Peritoneal Signs, Guarding Lower Extremity: Positive for: Edema (++2). Negative for: CALF TENDERNESS, Cyanosis Neurological: Positive for: GCS=15, CN II-XII Intact, Speech Normal, Motor Func Grossly Intact, Normal Sensory Function Psychiatric: Positive for: Alert, Oriented x 3, Normal Insight, Normal Concentration - Medications Active Medications: Active Medications Generic Name Dose Route Start Last Admin Trade Name Freq PRN Reason Stop Dose Admin Acetaminophen 650 mg 05/15/17 01:12 05/15/17 18:55 Tylenol 325mg Tab PO 650 mg Q4 PRN Administration Fever >100.4 F Albuterol/Ipratropium 3 ml 05/15/17 10:03 Duoneb 3 Mg/0.5 Mg (3 Ml) Ud INH RQ4 PRN Shortness of Breath Amlodipine Besylate 5 mg 05/15/17 09:00 05/16/17 08:27 Norvasc PO 5 mg DAILY [facility] Administration Atorvastatin Calcium 10 mg 05/15/17 09:00 05/16/17 08:27 Lipitor PO 10 mg DAILY [facility] Administration Calcium Acetate 1,334 mg 05/16/17 01:30 05/16/17 17:38 Phoslo PO 1,334 mg WM [facility] Administration Heparin Sodium (Porcine) 5,000 units 05/16/17 21:00 05/16/17 23:32 Heparin SC 5,000 units Q12 [facility] Administration Protocol Heparin Sodium (Porcine) 2,000 u 05/18/17 09:00 Heparin 1000 Units/ Ml 30ml IV 06/17/17 09:01 MWF [facility] Protocol Aztreonam 500 mg/ Sodium 50 mls @ 50 mls/hr 05/15/17 09:00 05/16/17 23:32 Chloride IVPB 50 mls/hr Q12 [facility] Administration Protocol Levofloxacin/Dextrose 500 mg in 100 mls @ 100 mls/hr 05/16/17 22:00 05/16/17 23:14 Levaquin 500mg IVPB 100 mls/hr QOTHERDAY [facility] Administration Calcium Gluconate 4.6 meq/ 59.8924 mls @ 59.892 mls/hr 05/17/17 09:00 Sodium Chloride IV 05/17/17 17:59 BID [facility] Metoprolol Tartrate 100 mg 05/15/17 09:00 05/16/17 16:33 Lopressor PO 100 mg BID [facility] Administration Sevelamer Carbonate 0.8 gm 05/15/17 17:00 05/16/17 16:34 Renvela PO 0.8 gm TIDWM [facility] Administration Vitamin B Complex/Vit C/Folic Acid 1 tab 05/16/17 09:00 05/16/17 08:27 Nephro-Gregorio PO 1 tab DAILY [facility] Administration - Patient Studies Lab Studies: Microbiology Studies 05/14/17 22:50 Blood Culture - Preliminary Blood NO GROWTH AFTER 48 HOURS 05/15/17 06:45 MRSA Culture (Admit) - Final Naris MRSA NOT DETECTED 05/15/17 06:45 Urine Culture - Final Urine,Clean Catch No Growth (<1,000 CFU/ML) Lab Studies 05/17/17 05/17/17 05/15/17 Range/Units 04:30 04:30 23:00 WBC 5.4 (4.8-10.8) K/uL RBC 2.43 L (4.40-5.90) Mil/uL Hgb 7.4 L (12.0-18.0) g/dL Hct 22.7 L (35.0-51.0) % MCV 93.3 (80.0-94.0) fl MCH 30.4 (27.0-31.0) pg MCHC 32.6 L (33.0-37.0) g/dL RDW 14.9 H (11.5-14.5) % Plt Count 168 (130-400) K/uL MPV 8.8 (7.2-11.7) fl Neut % (Auto) 72.5 (50.0-75.0) % Lymph % (Auto) 15.1 L (20.0-40.0) % Swift % (Auto) 8.4 (0.0-10.0) % Eos % (Auto) 3.5 (0.0-4.0) % Baso % (Auto) 0.5 (0.0-2.0) % Neut # 3.9 (1.8-7.0) K/uL Lymph # 0.8 L (1.0-4.3) K/uL Swift # 0.5 (0.0-0.8) K/uL Eos # 0.2 (0.0-0.7) K/uL Baso # 0.0 (0.0-0.2) K/uL Sodium 139 (132-148) mmol/l Potassium 4.4 (3.6-5.0) MMOL/L Chloride 103 (98-107) mmol/L Carbon Dioxide 27 (22-30) mmol/L Anion Gap 13 (10-20) BUN 36 H (9-20) mg/dl Creatinine 5.3 H (0.8-1.5) mg/dl Est GFR ( Amer) 14 Est GFR (Non-Af Amer) 11 Random Glucose 98 (75-110) mg/dL Calcium 6.7 L (8.4-10.2) mg/dL Phosphorus 4.8 H (2.5-4.5) mg/dl Magnesium 1.9 (1.6-2.3) MG/DL Total Bilirubin 0.3 (0.2-1.3) mg/dl AST 22 (17-59) U/L ALT 27 (21-72) U/L Alkaline Phosphatase 57 (38-126) U/L Total Protein 6.4 (6.3-8.2) G/DL Albumin 3.2 L (3.5-5.0) g/dL Globulin 3.2 (2.2-3.9) gm/dL Albumin/Globulin Ratio 1.0 (1.0-2.1) Vitamin B12 (239-931) pg/mL 25-OH Vitamin D Total 20.2 L (30.0-100.0) NG/ML Folate ng/mL 05/15/17 Range/Units 04:30 WBC (4.8-10.8) K/uL RBC (4.40-5.90) Mil/uL Hgb (12.0-18.0) g/dL Hct (35.0-51.0) % MCV (80.0-94.0) fl MCH (27.0-31.0) pg MCHC (33.0-37.0) g/dL RDW (11.5-14.5) % Plt Count (130-400) K/uL MPV (7.2-11.7) fl Neut % (Auto) (50.0-75.0) % Lymph % (Auto) (20.0-40.0) % Swift % (Auto) (0.0-10.0) % Eos % (Auto) (0.0-4.0) % Baso % (Auto) (0.0-2.0) % Neut # (1.8-7.0) K/uL Lymph # (1.0-4.3) K/uL Swift # (0.0-0.8) K/uL Eos # (0.0-0.7) K/uL Baso # (0.0-0.2) K/uL Sodium 143 (132-148) mmol/l Potassium 5.0 (3.6-5.0) MMOL/L Chloride 111 H (98-107) mmol/L Carbon Dioxide 19 L (22-30) mmol/L Anion Gap 18 (10-20) BUN 68 H (9-20) mg/dl Creatinine 10.3 H* (0.8-1.5) mg/dl Est GFR ( Amer) 6 Est GFR (Non-Af Amer) 5 Random Glucose 94 (75-110) mg/dL Calcium 5.1 L* (8.4-10.2) mg/dL Phosphorus 7.1 H (2.5-4.5) mg/dl Magnesium 1.0 L* (1.6-2.3) MG/DL Total Bilirubin (0.2-1.3) mg/dl AST (17-59) U/L ALT (21-72) U/L Alkaline Phosphatase (38-126) U/L Total Protein (6.3-8.2) G/DL Albumin (3.5-5.0) g/dL Globulin (2.2-3.9) gm/dL Albumin/Globulin Ratio (1.0-2.1) Vitamin B12 383 (239-931) pg/mL 25-OH Vitamin D Total (30.0-100.0) NG/ML Folate 9.2 ng/mL Laboratory Results - last 24 hr 05/15/17 05/15/17 05/17/17 04:30 23:00 04:30 WBC 5.4 RBC 2.43 L Hgb 7.4 L Hct 22.7 L MCV 93.3 MCH 30.4 MCHC 32.6 L RDW 14.9 H Plt Count 168 MPV 8.8 Neut % (Auto) 72.5 Lymph % (Auto) 15.1 L Swift % (Auto) 8.4 Eos % (Auto) 3.5 Baso % (Auto) 0.5 Neut # 3.9 Lymph # 0.8 L Swift # 0.5 Eos # 0.2 Baso # 0.0 Sodium 143 Potassium 5.0 Chloride 111 H Carbon Dioxide 19 L Anion Gap 18 BUN 68 H Creatinine 10.3 H* Est GFR ( Amer) 6 Est GFR (Non-Af Amer) 5 Random Glucose 94 Calcium 5.1 L* Phosphorus 7.1 H Magnesium 1.0 L* Total Bilirubin AST ALT Alkaline Phosphatase Total Protein Albumin Globulin Albumin/Globulin Ratio Vitamin B12 383 25-OH Vitamin D Total 20.2 L Folate 9.2 05/17/17 04:30 WBC RBC Hgb Hct MCV MCH MCHC RDW Plt Count MPV Neut % (Auto) Lymph % (Auto) Swift % (Auto) Eos % (Auto) Baso % (Auto) Neut # Lymph # Swift # Eos # Baso # Sodium 139 Potassium 4.4 Chloride 103 Carbon Dioxide 27 Anion Gap 13 BUN 36 H Creatinine 5.3 H Est GFR ( Amer) 14 Est GFR (Non-Af Amer) 11 Random Glucose 98 Calcium 6.7 L Phosphorus 4.8 H Magnesium 1.9 Total Bilirubin 0.3 AST 22 ALT 27 Alkaline Phosphatase 57 Total Protein 6.4 Albumin 3.2 L Globulin 3.2 Albumin/Globulin Ratio 1.0 Vitamin B12 25-OH Vitamin D Total Folate Review of Systems - Review of Systems All systems: reviewed and no additional remarkable complaints except (as above) Critical Care Progress Note - Nutrition Nutrition: Nutrition Category Date Time Status Renal Diet [DIET] Diets 05/16/17 Lunch Active
[2017-05-17] MEDS: Multivitamin Vitamin B Complex (Nephro-Vite) Tab PO SCH (08:45)
[2017-05-17] MEDS: Sevelamer Carb 0.8 gm/Packet PO SCH ×3 (08:46→16:31)
--- NOTE | 2017-05-17 09:39 | CP.PCM.PN ---
Subjective - Date & Time of Evaluation Date of Evaluation: 05/17/17 Time of Evaluation: 09:39 - Subjective Subjective: TREMORS OF EXTREMITIES IMPROVED SOB IMPROVED Objective - Vital Signs/Intake and Output Vital Signs (last 24 hours): Temp Pulse Resp BP Pulse Ox 98.3 F 90 18 145/87 87 L 05/17/17 08:00 05/17/17 08:45 05/17/17 08:00 05/17/17 08:45 05/17/17 08:00 Intake and Output: 05/17/17 05/17/17 06:59 18:59 Intake Total 410 50 Output Total 400 Balance 410 -350 - Medications Medications: Current Medications Acetaminophen (Tylenol 325mg Tab) 650 mg PO Q4 PRN PRN Reason: Fever >100.4 F Last Admin: 05/15/17 18:55 Dose: 650 mg Albuterol/Ipratropium (Duoneb 3 Mg/0.5 Mg (3 Ml) Ud) 3 ml INH RQ4 PRN PRN Reason: Shortness of Breath Amlodipine Besylate (Norvasc) 5 mg PO DAILY [facility] Last Admin: 05/17/17 08:45 Dose: 5 mg Atorvastatin Calcium (Lipitor) 10 mg PO DAILY [facility] Last Admin: 05/17/17 08:45 Dose: 10 mg Calcium Acetate (Phoslo) 1,334 mg PO WM [facility] Last Admin: 05/17/17 08:46 Dose: 1,334 mg Heparin Sodium (Porcine) (Heparin) 5,000 units SC Q12 [facility] PRN Reason: Protocol Last Admin: 05/16/17 23:32 Dose: 5,000 units Heparin Sodium (Porcine) (Heparin 1000 Units/ Ml 30ml) 2,000 u IV MWF [facility] PRN Reason: Protocol Stop: 06/17/17 09:01 Aztreonam 500 mg/ Sodium (Chloride) 50 mls @ 50 mls/hr IVPB Q12 [facility] PRN Reason: Protocol Last Admin: 05/16/17 23:32 Dose: 50 mls/hr Levofloxacin/Dextrose (Levaquin 500mg) 500 mg in 100 mls @ 100 mls/hr IVPB QOTHERDAY [facility] Last Admin: 05/16/17 23:14 Dose: 100 mls/hr Calcium Gluconate 4.6 meq/ (Sodium Chloride) 59.8924 mls @ 59.892 mls/hr IV BID [facility] Stop: 05/17/17 17:59 Last Admin: 05/17/17 08:36 Dose: 59.892 mls/hr Metoprolol Tartrate (Lopressor) 100 mg PO BID [facility] Last Admin: 05/17/17 08:45 Dose: 100 mg Sevelamer Carbonate (Renvela) 0.8 gm PO TIDWM [facility] Last Admin: 05/17/17 08:46 Dose: 0.8 gm Vitamin B Complex/Vit C/Folic Acid (Nephro-Gregorio) 1 tab PO DAILY [facility] Last Admin: 05/17/17 08:45 Dose: 1 tab - Labs Labs: 05/17/17 04:30 05/17/17 04:30 PT 14.1 Seconds (9.8-13.1) H 05/14/17 22:44 INR 1.2 (0.9-1.2) 05/14/17 22:44 APTT 32.8 Seconds (25.6-37.1) 05/14/17 22:44 - Constitutional Appears: No Acute Distress - Head Exam Head Exam: ATRAUMATIC, NORMAL INSPECTION, NORMOCEPHALIC - Eye Exam Eye Exam: EOMI, Normal appearance, PERRL Pupil Exam: NORMAL ACCOMODATION, PERRL - ENT Exam ENT Exam: Mucous Membranes Moist, Normal Exam - Neck Exam Neck Exam: Full ROM, Normal Inspection. absent: Lymphadenopathy - Respiratory Exam Respiratory Exam: Rales, NORMAL BREATHING PATTERN - Cardiovascular Exam Cardiovascular Exam: REGULAR RHYTHM, +S1, +S2. absent: Murmur - GI/Abdominal Exam GI & Abdominal Exam: Soft, Normal Bowel Sounds. absent: Tenderness - Rectal Exam Rectal Exam: NORMAL INSPECTION - Extremities Exam Extremities Exam: Full ROM, Normal Capillary Refill, Normal Inspection. absent : Joint Swelling, Pedal Edema - Back Exam Back Exam: NORMAL INSPECTION - Neurological Exam Neurological Exam: Alert, Awake, CN II-XII Intact, Normal Gait, Oriented x3 - Psychiatric Exam Psychiatric exam: Normal Affect, Normal Mood - Skin Skin Exam: Dry, Intact, Normal Color, Warm Assessment and Plan - Assessment and Plan (Free Text) Assessment: UREMIA IMPROVING CHF/PNEUMONIA--CLINICALLY IMPROVED[CXR OFFICIAL REPORT PENDING] ANEMIA OF CHRONIC DZ Plan: CONTINUE PRESENT RX
--- NOTE | 2017-05-17 10:02 | RAD ---
PROCEDURE: CHEST RADIOGRAPH, 1 VIEW HISTORY: CHF COMPARISON: Portable chest 05/15/2017. FINDINGS: LUNGS: In the interval, linear atelectasis appears the medial left base no definitive alveolar change bilaterally. PLEURA: No pneumothorax or pleural fluid seen. CARDIOVASCULAR: Pulmonary vascular pattern appears unchanged and remains slightly accentuated. OSSEOUS STRUCTURES: No significant abnormalities. VISUALIZED UPPER ABDOMEN: Normal. OTHER FINDINGS: None. IMPRESSION: Limited linear atelectasis or is appreciated at the medial left base with remaining lung catalan clear. Mild accentuation of pulmonary vascular pattern again may indicate limited pulmonary venous congestion. Clinically correlate further.
--- NOTE | 2017-05-17 19:15 | CP.PCM.PN ---
Subjective - Date & Time of Evaluation Date of Evaluation: 05/17/17 Time of Evaluation: 14:00 - Subjective Subjective: SEEN ON RENAL FU ON HD M W F START EPO AND IRON Objective - Vital Signs/Intake and Output Vital Signs (last 24 hours): Temp Pulse Resp BP Pulse Ox 98.2 F 71 18 128/66 100 05/17/17 16:00 05/17/17 16:30 05/17/17 16:00 05/17/17 16:30 05/17/17 16:00 Intake and Output: 05/17/17 05/18/17 18:59 06:59 Intake Total 700 Output Total 1200 Balance -500 - Medications Medications: Current Medications Acetaminophen (Tylenol 325mg Tab) 650 mg PO Q4 PRN PRN Reason: Fever >100.4 F Last Admin: 05/15/17 18:55 Dose: 650 mg Albuterol/Ipratropium (Duoneb 3 Mg/0.5 Mg (3 Ml) Ud) 3 ml INH RQ4 PRN PRN Reason: Shortness of Breath Amlodipine Besylate (Norvasc) 5 mg PO DAILY [facility] Last Admin: 05/17/17 08:45 Dose: 5 mg Ascorbic Acid (Vitamin C 500 Mg Tab) 500 mg PO DAILY [facility] Atorvastatin Calcium (Lipitor) 10 mg PO DAILY [facility] Last Admin: 05/17/17 08:45 Dose: 10 mg Calcium Acetate (Phoslo) 1,334 mg PO WM [facility] Last Admin: 05/17/17 17:30 Dose: 1,334 mg Cholecalciferol (Vitamin D) 2,000 iu PO DAILY [facility] Heparin Sodium (Porcine) (Heparin) 5,000 units SC Q12 [facility] PRN Reason: Protocol Last Admin: 05/17/17 10:02 Dose: 5,000 units Heparin Sodium (Porcine) (Heparin 1000 Units/ Ml 30ml) 2,000 u IV MWF [facility] PRN Reason: Protocol Stop: 06/17/17 09:01 Aztreonam 500 mg/ Sodium (Chloride) 50 mls @ 50 mls/hr IVPB Q12 [facility] PRN Reason: Protocol Last Admin: 05/17/17 10:56 Dose: 50 mls/hr Levofloxacin/Dextrose (Levaquin 500mg) 500 mg in 100 mls @ 100 mls/hr IVPB QOTHERDAY [facility] Last Admin: 05/16/17 23:14 Dose: 100 mls/hr Iron Sucrose 100 mg/ Sodium (Chloride) 105 mls @ 105 mls/hr IVPB MWF [facility] Stop: 05/17/17 20:07 Metoprolol Tartrate (Lopressor) 100 mg PO BID [facility] Last Admin: 05/17/17 16:30 Dose: 100 mg Sevelamer Carbonate (Renvela) 0.8 gm PO TIDWM [facility] Last Admin: 05/17/17 16:31 Dose: 0.8 gm Vitamin B Complex/Vit C/Folic Acid (Nephro-Gregorio) 1 tab PO DAILY [facility] Last Admin: 05/17/17 08:45 Dose: 1 tab - Labs Labs: 05/17/17 04:30 05/17/17 04:30 PT 14.1 Seconds (9.8-13.1) H 05/14/17 22:44 INR 1.2 (0.9-1.2) 05/14/17 22:44 APTT 32.8 Seconds (25.6-37.1) 05/14/17 22:44 Assessment and Plan - Assessment and Plan (Free Text) Assessment: ESRD ON HD M W F ANEMIA OF CKD .. STARTED ON EPO AND VENOFERE NEEDS TUNNELLED CATH AND AVF SW TO GET OUT PT HD SPOT AND POSSIBLE INSURANCE
[2017-05-18 07:05] LABS: HEMATOCRIT 23.7 % (35.0-51.0); MEAN CELL VOLUME 93.7 fl (80.0-94.0); MEAN CORPUSCULAR HEMOGLOBIN 30.2 pg (27.0-31.0); MEAN CORPUSCULAR HGB CONC 32.3 g/dL (33.0-37.0); RED CELL DISTRIBUTION WIDTH 14.8 % (11.5-14.5); WHITE BLOOD COUNT 5.5 K/uL (4.8-10.8)
[2017-05-18 07:29] LABS: CALCIUM 6.8 mg/dL (8.4-10.2); POTASSIUM 4.5 MMOL/L (3.6-5.0)
--- NOTE | 2017-05-18 08:30 | CP.PCM.PN ---
Subjective - Date & Time of Evaluation Date of Evaluation: 05/18/17 Time of Evaluation: 06:45 - Subjective Subjective: Vascular surgery- Dr. Soto Patient seen and examined at bedside this morning. Patient transferred to med- surg from the unit. Dialysis scheduled for today (MWF). Tremors have improved. Left femoral shiley catheter in place. Right femoral bandage changed at bedside. Denies pain, fevers, chills, chest pain, shortness of breath, nausea, vomiting, diarrhea, numbness/tingling in extremities. Objective - Vital Signs/Intake and Output Vital Signs (last 24 hours): Temp Pulse Resp BP Pulse Ox 97.3 F L 66 18 147/88 94 L 05/18/17 08:22 05/18/17 08:22 05/18/17 08:22 05/18/17 08:22 05/18/17 08:22 Intake and Output: 05/18/17 05/18/17 06:59 18:59 Intake Total 465 Balance 465 - Medications Medications: Current Medications Acetaminophen (Tylenol 325mg Tab) 650 mg PO Q4 PRN PRN Reason: Fever >100.4 F Last Admin: 05/15/17 18:55 Dose: 650 mg Albuterol/Ipratropium (Duoneb 3 Mg/0.5 Mg (3 Ml) Ud) 3 ml INH RQ4 PRN PRN Reason: Shortness of Breath Amlodipine Besylate (Norvasc) 5 mg PO DAILY [facility] Last Admin: 05/17/17 08:45 Dose: 5 mg Ascorbic Acid (Vitamin C 500 Mg Tab) 500 mg PO DAILY [facility] Atorvastatin Calcium (Lipitor) 10 mg PO DAILY [facility] Last Admin: 05/17/17 08:45 Dose: 10 mg Calcium Acetate (Phoslo) 1,334 mg PO WM [facility] Last Admin: 05/17/17 17:30 Dose: 1,334 mg Cholecalciferol (Vitamin D) 2,000 iu PO DAILY [facility] Epoetin Deni (Procrit) 4,000 unit SC MWF [facility] Heparin Sodium (Porcine) (Heparin) 5,000 units SC Q12 [facility] PRN Reason: Protocol Last Admin: 05/17/17 22:29 Dose: 5,000 units Heparin Sodium (Porcine) (Heparin 1000 Units/ Ml 30ml) 2,000 u IV MWF [facility] PRN Reason: Protocol Stop: 06/17/17 09:01 Aztreonam 500 mg/ Sodium (Chloride) 50 mls @ 50 mls/hr IVPB Q12 [facility] PRN Reason: Protocol Last Admin: 05/17/17 22:28 Dose: 50 mls/hr Levofloxacin/Dextrose (Levaquin 500mg) 500 mg in 100 mls @ 100 mls/hr IVPB QOTHERDAY [facility] Last Admin: 05/16/17 23:14 Dose: 100 mls/hr Metoprolol Tartrate (Lopressor) 100 mg PO BID [facility] Last Admin: 05/17/17 16:30 Dose: 100 mg Sevelamer Carbonate (Renvela) 0.8 gm PO TIDWM [facility] Last Admin: 05/17/17 16:31 Dose: 0.8 gm Vitamin B Complex/Vit C/Folic Acid (Nephro-Gregorio) 1 tab PO DAILY [facility] Last Admin: 05/17/17 08:45 Dose: 1 tab - Labs Labs: 05/18/17 05:55 05/18/17 05:55 PT 14.1 Seconds (9.8-13.1) H 05/14/17 22:44 INR 1.2 (0.9-1.2) 05/14/17 22:44 APTT 32.8 Seconds (25.6-37.1) 05/14/17 22:44 - Constitutional Appears: Non-toxic, No Acute Distress - Head Exam Head Exam: ATRAUMATIC - Eye Exam Eye Exam: EOMI. absent: Scleral icterus - ENT Exam ENT Exam: Mucous Membranes Moist - Respiratory Exam Respiratory Exam: NORMAL BREATHING PATTERN. absent: Accessory Muscle Use, Respiratory Distress - Cardiovascular Exam Cardiovascular Exam: +S1, +S2. absent: Bradycardia, Tachycardia - GI/Abdominal Exam GI & Abdominal Exam: Soft. absent: Distended, Firm, Guarding, Rigid, Tenderness - Extremities Exam Extremities Exam: absent: Calf Tenderness Additional comments: Left femoral shiley cather in place. no signs of erythema, or drainage. right femoral bandage changed. no signs of hematoma, or erythema - Neurological Exam Neurological Exam: Alert, Awake, Oriented x3 - Psychiatric Exam Psychiatric exam: Normal Affect - Skin Skin Exam: Normal Color, Warm Assessment and Plan - Assessment and Plan (Free Text) Assessment: 56M acute on chronic kidney injury, on Hemodialysis Plan: - pending final read of vein mapping - plan for possible fistula and permacath placement - replace electrolyte PRN - medical management per primary - HD MWF - further recs per Dr. Charles Bueno PGY1
[2017-05-18] MEDS: Heparin Sodium (Porcine) 1,000 U/ML 30ML IV SCH ×2 (09:00→09:55)
[2017-05-18] MEDS: Multivitamin Vitamin B Complex (Nephro-Vite) Tab PO SCH (09:36)
[2017-05-18] MEDS: Sevelamer Carb 0.8 gm/Packet PO SCH ×3 (09:36→16:41)
[2017-05-18] MEDS: levoFLOXacin 500 mg in D5W 500 MG/100 ML BAG IVPB SCH (09:54)
[2017-05-18] MEDS: Epoetin Alfa 4000 UNIT/ML Inj SC SCH ×2 (09:56→19:25)
--- NOTE | 2017-05-18 10:53 | CP.PCM.PN ---
<Quincy Gurerero - Last Filed: 05/18/17 16:04> Subjective - Date & Time of Evaluation Date of Evaluation: 05/18/17 Time of Evaluation: 10:53 - Subjective Subjective: Hospitalist Progress Note 56 year old male patient seen and evaluated at bedside for bilateral pneumonia. Patient alert, responsive, hemodynamically stable, NAD. Patient denies any acute events overnight. Patient seen during HD; per nursing, left femoral access not flowing. Cathflo ordered. Denies chest pain, SOB, abdominal pain, nausea, vomiting, fever, chills. Objective - Vital Signs/Intake and Output Vital Signs (last 24 hours): Temp Pulse Resp BP Pulse Ox 97.3 F L 66 18 147/88 94 L 05/18/17 08:22 05/18/17 08:22 05/18/17 08:22 05/18/17 08:22 05/18/17 08:22 Intake and Output: 05/18/17 05/18/17 06:59 18:59 Intake Total 465 150 Balance 465 150 - Medications Medications: Current Medications Acetaminophen (Tylenol 325mg Tab) 650 mg PO Q4 PRN PRN Reason: Fever >100.4 F Last Admin: 05/15/17 18:55 Dose: 650 mg Albuterol/Ipratropium (Duoneb 3 Mg/0.5 Mg (3 Ml) Ud) 3 ml INH RQ4 PRN PRN Reason: Shortness of Breath Amlodipine Besylate (Norvasc) 5 mg PO DAILY [facility] Last Admin: 05/18/17 09:37 Dose: Not Given Ascorbic Acid (Vitamin C 500 Mg Tab) 500 mg PO DAILY [facility] Last Admin: 05/18/17 09:36 Dose: 500 mg Atorvastatin Calcium (Lipitor) 10 mg PO DAILY [facility] Last Admin: 05/18/17 09:38 Dose: 10 mg Calcium Acetate (Phoslo) 1,334 mg PO WM [facility] Last Admin: 05/18/17 09:38 Dose: 1,334 mg Cholecalciferol (Vitamin D) 2,000 iu PO DAILY [facility] Last Admin: 05/18/17 09:55 Dose: 2,000 iu Epoetin Deni (Procrit) 4,000 unit SC MWF [facility] Last Admin: 05/18/17 09:56 Dose: 4,000 unit Heparin Sodium (Porcine) (Heparin) 5,000 units SC Q12 [facility] PRN Reason: Protocol Last Admin: 05/18/17 09:35 Dose: 5,000 units Heparin Sodium (Porcine) (Heparin) 2,000 units IVP MWF [facility] PRN Reason: Protocol Stop: 06/17/17 09:01 Last Admin: 05/18/17 10:02 Dose: Not Given Aztreonam 500 mg/ Sodium (Chloride) 50 mls @ 50 mls/hr IVPB Q12 [facility] PRN Reason: Protocol Last Admin: 05/18/17 09:34 Dose: 50 mls/hr Levofloxacin/Dextrose (Levaquin 500mg) 500 mg in 100 mls @ 100 mls/hr IVPB QOTHERDAY [facility] Last Admin: 05/18/17 09:54 Dose: 100 mls/hr Metoprolol Tartrate (Lopressor) 100 mg PO BID [facility] Last Admin: 05/18/17 09:39 Dose: Not Given Sevelamer Carbonate (Renvela) 0.8 gm PO TIDWM [facility] Last Admin: 05/18/17 09:36 Dose: 0.8 gm Vitamin B Complex/Vit C/Folic Acid (Nephro-Gregorio) 1 tab PO DAILY [facility] Last Admin: 05/18/17 09:36 Dose: 1 tab - Labs Labs: 05/18/17 05:55 05/18/17 05:55 PT 14.1 Seconds (9.8-13.1) H 05/14/17 22:44 INR 1.2 (0.9-1.2) 05/14/17 22:44 APTT 32.8 Seconds (25.6-37.1) 05/14/17 22:44 - Constitutional Appears: Well, Non-toxic, No Acute Distress (not tremulous) - Head Exam Head Exam: ATRAUMATIC, NORMAL INSPECTION, NORMOCEPHALIC - Eye Exam Eye Exam: EOMI, Normal appearance, PERRL Pupil Exam: NORMAL ACCOMODATION - ENT Exam ENT Exam: Mucous Membranes Moist, Normal External Ear Exam - Neck Exam Neck Exam: Normal Inspection. absent: Tenderness - Respiratory Exam Respiratory Exam: Clear to Ausculation Bilateral, NORMAL BREATHING PATTERN. absent: Rales, Rhonchi, Wheezes - Cardiovascular Exam Cardiovascular Exam: REGULAR RHYTHM, +S1, +S2. absent: Murmur - GI/Abdominal Exam GI & Abdominal Exam: Soft, Normal Bowel Sounds. absent: Tenderness - Rectal Exam Rectal Exam: Deferred - Extremities Exam Extremities Exam: Normal Capillary Refill, Normal Inspection - Neurological Exam Neurological Exam: Alert, Awake - Psychiatric Exam Psychiatric exam: Normal Affect, Normal Mood - Skin Skin Exam: Dry, Intact, Normal Color Assessment and Plan - Assessment and Plan (Free Text) Assessment: 56 years old male with hx of HTN, CKD, and urinary retention, comes with 2 days of dizziness when he stands up , fever, chills, nausea, SOB on exertion, and body aches. He has edema to both lower extremities for more than a week. In the ED his Temperature was 101.5F and respiratory rate of 24, with a SpO2 of 92% on RA. Creatinine 10. Improving today, no longer tremulous. Has received 2 courses of hemodialysis Sepsis sec to Pneumonia Pt came with temp of 101.5F; HR of 110; RR of 24 Currently afebrile, HR 66, RR 18 - consult Dr Sky - recommend IV Azactam and Levaquin, complete 1 week - given Vanco 1 gram x 1 - follow Blood culture - (prelim) no growth; gram stain pending - plan to dc on PO levaquin and omnicef to complete 7 days Bilateral Pneumonia - Consult Dr Pacheco Pulmonary appreciated - CXR: limited linear atelectasis at medial left base. Limited pulmonary venous congestion - Levofloxacin 750mg q 48hrs - Azactam 1gm Q8hrs - Vancomycin 1gm IVPB given once - duoneb PRN - continue BiPAP Acute on Chronic kidney disease stage V (on 04/02/17 Creatinine was 8.3 and BUN was 62); Now 10.6 and 71 - Consulted Dr Castillo Nephrology - HD x2 since admission - started Renagel and Phoslo for Hyperphosphatemia - HD today - L femoral access not working. Surgery was consulted to assess line ; Cathflo ordered per Dr. Castillo and administered - Discussed with Dr. Soto - tentatively scheduled for tunneled cath Sunday, 05/21 - Patient is [facility] [place] [facility]. will set up outpatient HD Hypocalcemia sec to renal Dis , Hyperphosphatemia - Pt on renagel and Phoslo, increase dose - replace Calcium Volume Overload sec to Renal dis - emergent dialysis completed - IV Lasix given - Echo severe systolic dysfunction, EF 35%, wall motion abn, mod to severe MR Anemia of Chronic Kidney disease - Type and Cross - Transfuse 1unit PRBC with HD HTN - cont Norvasc, Metoprolol DVT prophylaxis - Heparin <Araceli Saravia - Last Filed: 05/18/17 16:08> Objective - Vital Signs/Intake and Output Vital Signs (last 24 hours): Temp Pulse Resp BP Pulse Ox 98.2 F 84 19 136/83 95 05/18/17 15:43 05/18/17 15:43 05/18/17 15:43 05/18/17 15:43 05/18/17 15:43 Intake and Output: 05/18/17 05/18/17 06:59 18:59 Intake Total 465 150 Balance 465 150 - Medications Medications: Current Medications Acetaminophen (Tylenol 325mg Tab) 650 mg PO Q4 PRN PRN Reason: Fever >100.4 F Last Admin: 05/15/17 18:55 Dose: 650 mg Albuterol/Ipratropium (Duoneb 3 Mg/0.5 Mg (3 Ml) Ud) 3 ml INH RQ4 PRN PRN Reason: Shortness of Breath Amlodipine Besylate (Norvasc) 5 mg PO Q12 [facility] Ascorbic Acid (Vitamin C 500 Mg Tab) 500 mg PO DAILY [facility] Last Admin: 05/18/17 09:36 Dose: 500 mg Aspirin (Aspirin Chewable) 81 mg PO DAILY [facility] Last Admin: 05/18/17 13:41 Dose: 81 mg Atorvastatin Calcium (Lipitor) 10 mg PO DAILY [facility] Last Admin: 05/18/17 09:38 Dose: 10 mg Calcium Acetate (Phoslo) 1,334 mg PO WM [facility] Last Admin: 05/18/17 13:43 Dose: 1,334 mg Cholecalciferol (Vitamin D) 2,000 iu PO DAILY [facility] Last Admin: 05/18/17 09:55 Dose: 2,000 iu Epoetin Deni (Procrit) 4,000 unit SC MWF [facility] Last Admin: 05/18/17 09:56 Dose: 4,000 unit Heparin Sodium (Porcine) (Heparin) 5,000 units SC Q12 [facility] PRN Reason: Protocol Last Admin: 05/18/17 09:35 Dose: 5,000 units Heparin Sodium (Porcine) (Heparin) 2,000 units IVP MWF [facility] PRN Reason: Protocol Stop: 06/17/17 09:01 Last Admin: 05/18/17 10:02 Dose: Not Given Aztreonam 500 mg/ Sodium (Chloride) 50 mls @ 50 mls/hr IVPB Q12 [facility] PRN Reason: Protocol Last Admin: 05/18/17 09:34 Dose: 50 mls/hr Levofloxacin/Dextrose (Levaquin 500mg) 500 mg in 100 mls @ 100 mls/hr IVPB QOTHERDAY [facility] Last Admin: 05/18/17 09:54 Dose: 100 mls/hr Metoprolol Tartrate (Lopressor) 100 mg PO BID [facility] Last Admin: 05/18/17 09:39 Dose: Not Given Sevelamer Carbonate (Renvela) 0.8 gm PO TIDWM [facility] Last Admin: 05/18/17 13:43 Dose: 0.8 gm Vitamin B Complex/Vit C/Folic Acid (Nephro-Gregorio) 1 tab PO DAILY [facility] Last Admin: 05/18/17 09:36 Dose: 1 tab - Labs Labs: 05/18/17 05:55 05/18/17 12:20 PT 14.1 Seconds (9.8-13.1) H 05/14/17 22:44 INR 1.2 (0.9-1.2) 05/14/17 22:44 APTT 32.8 Seconds (25.6-37.1) 05/14/17 22:44 Attending/Attestation - Attestation I have personally seen and examined this patient.: Yes I have fully participated in the care of the patient.: Yes I have reviewed all pertinent clinical information, including history, physical exam and plan: Yes Notes (Text): 05/18/17 16:07 seen examined and discussed with resident Dr. Guerrero. Agree with findings and plan as above.
--- NOTE | 2017-05-18 11:52 | CP.PCM.PN ---
Subjective - Date & Time of Evaluation Date of Evaluation: 05/18/17 Time of Evaluation: 11:52 - Subjective Subjective: SNORING DURING SLEEP HAS EPISODES OF HYPOXIA --RESOLVED WITH BIPAP Objective - Vital Signs/Intake and Output Vital Signs (last 24 hours): Temp Pulse Resp BP Pulse Ox 97.3 F L 66 18 147/88 94 L 05/18/17 08:22 05/18/17 08:22 05/18/17 08:22 05/18/17 08:22 05/18/17 08:22 Intake and Output: 05/18/17 05/18/17 06:59 18:59 Intake Total 465 150 Balance 465 150 - Medications Medications: Current Medications Acetaminophen (Tylenol 325mg Tab) 650 mg PO Q4 PRN PRN Reason: Fever >100.4 F Last Admin: 05/15/17 18:55 Dose: 650 mg Albuterol/Ipratropium (Duoneb 3 Mg/0.5 Mg (3 Ml) Ud) 3 ml INH RQ4 PRN PRN Reason: Shortness of Breath Amlodipine Besylate (Norvasc) 5 mg PO DAILY [facility] Last Admin: 05/18/17 09:37 Dose: Not Given Ascorbic Acid (Vitamin C 500 Mg Tab) 500 mg PO DAILY [facility] Last Admin: 05/18/17 09:36 Dose: 500 mg Atorvastatin Calcium (Lipitor) 10 mg PO DAILY [facility] Last Admin: 05/18/17 09:38 Dose: 10 mg Calcium Acetate (Phoslo) 1,334 mg PO WM [facility] Last Admin: 05/18/17 09:38 Dose: 1,334 mg Cholecalciferol (Vitamin D) 2,000 iu PO DAILY [facility] Last Admin: 05/18/17 09:55 Dose: 2,000 iu Epoetin Deni (Procrit) 4,000 unit SC MWF [facility] Last Admin: 05/18/17 09:56 Dose: 4,000 unit Heparin Sodium (Porcine) (Heparin) 5,000 units SC Q12 [facility] PRN Reason: Protocol Last Admin: 05/18/17 09:35 Dose: 5,000 units Heparin Sodium (Porcine) (Heparin) 2,000 units IVP MWF [facility] PRN Reason: Protocol Stop: 06/17/17 09:01 Last Admin: 05/18/17 10:02 Dose: Not Given Aztreonam 500 mg/ Sodium (Chloride) 50 mls @ 50 mls/hr IVPB Q12 [facility] PRN Reason: Protocol Last Admin: 05/18/17 09:34 Dose: 50 mls/hr Levofloxacin/Dextrose (Levaquin 500mg) 500 mg in 100 mls @ 100 mls/hr IVPB QOTHERDAY [facility] Last Admin: 05/18/17 09:54 Dose: 100 mls/hr Metoprolol Tartrate (Lopressor) 100 mg PO BID [facility] Last Admin: 05/18/17 09:39 Dose: Not Given Sevelamer Carbonate (Renvela) 0.8 gm PO TIDWM [facility] Last Admin: 05/18/17 09:36 Dose: 0.8 gm Vitamin B Complex/Vit C/Folic Acid (Nephro-Gregorio) 1 tab PO DAILY [facility] Last Admin: 05/18/17 09:36 Dose: 1 tab - Labs Labs: 05/18/17 05:55 05/18/17 05:55 PT 14.1 Seconds (9.8-13.1) H 05/14/17 22:44 INR 1.2 (0.9-1.2) 05/14/17 22:44 APTT 32.8 Seconds (25.6-37.1) 05/14/17 22:44 - Constitutional Appears: No Acute Distress - Head Exam Head Exam: ATRAUMATIC, NORMAL INSPECTION, NORMOCEPHALIC - Eye Exam Eye Exam: EOMI, Normal appearance, PERRL Pupil Exam: NORMAL ACCOMODATION, PERRL - ENT Exam ENT Exam: Mucous Membranes Moist, Normal Exam - Neck Exam Neck Exam: Full ROM, Normal Inspection. absent: Lymphadenopathy - Respiratory Exam Respiratory Exam: Clear to Ausculation Bilateral, NORMAL BREATHING PATTERN - Cardiovascular Exam Cardiovascular Exam: REGULAR RHYTHM, +S1, +S2. absent: Murmur - GI/Abdominal Exam GI & Abdominal Exam: Soft, Normal Bowel Sounds. absent: Tenderness - Rectal Exam Rectal Exam: NORMAL INSPECTION - Extremities Exam Extremities Exam: Full ROM, Normal Capillary Refill, Normal Inspection. absent : Joint Swelling, Pedal Edema - Back Exam Back Exam: NORMAL INSPECTION - Neurological Exam Neurological Exam: Alert, Awake, CN II-XII Intact, Normal Gait, Oriented x3 - Psychiatric Exam Psychiatric exam: Normal Affect, Normal Mood - Skin Skin Exam: Dry, Intact, Normal Color, Warm Assessment and Plan - Assessment and Plan (Free Text) Assessment: UREMIA SLEEP APNEA SYNDROME CHF/PNEUMONIA Plan: BIPAP RX
--- NOTE | 2017-05-18 12:30 | CP.PCM.PN ---
Subjective - Date & Time of Evaluation Date of Evaluation: 05/16/17 Time of Evaluation: 18:00 - Subjective Subjective: pt still rigorous but less dyspnic. states he feels better after hd. no arrythmias. no cp. echo reveals decreased ef. Objective - Vital Signs/Intake and Output Vital Signs (last 24 hours): Temp Pulse Resp BP Pulse Ox 97.3 F L 66 18 147/88 94 L 05/18/17 08:22 05/18/17 08:22 05/18/17 08:22 05/18/17 08:22 05/18/17 08:22 Intake and Output: 05/18/17 05/18/17 06:59 18:59 Intake Total 465 150 Balance 465 150 - Medications Medications: Current Medications Acetaminophen (Tylenol 325mg Tab) 650 mg PO Q4 PRN PRN Reason: Fever >100.4 F Last Admin: 05/15/17 18:55 Dose: 650 mg Albuterol/Ipratropium (Duoneb 3 Mg/0.5 Mg (3 Ml) Ud) 3 ml INH RQ4 PRN PRN Reason: Shortness of Breath Amlodipine Besylate (Norvasc) 5 mg PO DAILY [facility] Last Admin: 05/18/17 09:37 Dose: Not Given Ascorbic Acid (Vitamin C 500 Mg Tab) 500 mg PO DAILY [facility] Last Admin: 05/18/17 09:36 Dose: 500 mg Atorvastatin Calcium (Lipitor) 10 mg PO DAILY [facility] Last Admin: 05/18/17 09:38 Dose: 10 mg Calcium Acetate (Phoslo) 1,334 mg PO WM [facility] Last Admin: 05/18/17 09:38 Dose: 1,334 mg Cholecalciferol (Vitamin D) 2,000 iu PO DAILY [facility] Last Admin: 05/18/17 09:55 Dose: 2,000 iu Epoetin Deni (Procrit) 4,000 unit SC MWF [facility] Last Admin: 05/18/17 09:56 Dose: 4,000 unit Heparin Sodium (Porcine) (Heparin) 5,000 units SC Q12 [facility] PRN Reason: Protocol Last Admin: 05/18/17 09:35 Dose: 5,000 units Heparin Sodium (Porcine) (Heparin) 2,000 units IVP MWF [facility] PRN Reason: Protocol Stop: 06/17/17 09:01 Last Admin: 05/18/17 10:02 Dose: Not Given Aztreonam 500 mg/ Sodium (Chloride) 50 mls @ 50 mls/hr IVPB Q12 [facility] PRN Reason: Protocol Last Admin: 05/18/17 09:34 Dose: 50 mls/hr Levofloxacin/Dextrose (Levaquin 500mg) 500 mg in 100 mls @ 100 mls/hr IVPB QOTHERDAY [facility] Last Admin: 05/18/17 09:54 Dose: 100 mls/hr Metoprolol Tartrate (Lopressor) 100 mg PO BID [facility] Last Admin: 05/18/17 09:39 Dose: Not Given Sevelamer Carbonate (Renvela) 0.8 gm PO TIDWM [facility] Last Admin: 05/18/17 09:36 Dose: 0.8 gm Vitamin B Complex/Vit C/Folic Acid (Nephro-Gregorio) 1 tab PO DAILY [facility] Last Admin: 05/18/17 09:36 Dose: 1 tab - Labs Labs: 05/18/17 05:55 05/18/17 05:55 PT 14.1 Seconds (9.8-13.1) H 05/14/17 22:44 INR 1.2 (0.9-1.2) 05/14/17 22:44 APTT 32.8 Seconds (25.6-37.1) 05/14/17 22:44 - Constitutional Appears: Non-toxic - Head Exam Head Exam: ATRAUMATIC, NORMAL INSPECTION, NORMOCEPHALIC - Eye Exam Eye Exam: EOMI, Normal appearance, PERRL Pupil Exam: NORMAL ACCOMODATION, PERRL - Neck Exam Neck Exam: Full ROM, Normal Inspection. absent: Lymphadenopathy - Respiratory Exam Respiratory Exam: Decreased Breath Sounds, Rales, Rhonchi - Cardiovascular Exam Cardiovascular Exam: Tachycardia, REGULAR RHYTHM, +S1, +S2, Murmur - GI/Abdominal Exam GI & Abdominal Exam: Soft, Normal Bowel Sounds. absent: Tenderness - Rectal Exam Rectal Exam: Deferred - Extremities Exam Extremities Exam: Pedal Edema - Back Exam Back Exam: NORMAL INSPECTION - Neurological Exam Neurological Exam: Alert, Awake - Psychiatric Exam Psychiatric exam: Normal Affect - Skin Skin Exam: Rash Assessment and Plan (1) Volume overload Status: Acute (2) Pulmonary edema Status: Acute (3) Acute kidney injury superimposed on chronic kidney disease Status: Acute (4) Anemia of chronic disease Status: Acute (5) Sepsis Status: Acute (6) Acute combined systolic and diastolic congestive heart failure Status: Acute - Assessment and Plan (Free Text) Plan: will need more volume taken off via hd. cont abx. pt will eventually benefit from cath, however with current status it is not recommended any time soon. start asa. monitor to continue.
--- NOTE | 2017-05-18 12:32 | CP.PCM.PN ---
Objective - Vital Signs/Intake and Output Vital Signs (last 24 hours): Temp Pulse Resp BP Pulse Ox 97.3 F L 66 18 147/88 94 L 05/18/17 08:22 05/18/17 08:22 05/18/17 08:22 05/18/17 08:22 05/18/17 08:22 Intake and Output: 05/18/17 05/18/17 06:59 18:59 Intake Total 465 150 Balance 465 150 - Medications Medications: Current Medications Acetaminophen (Tylenol 325mg Tab) 650 mg PO Q4 PRN PRN Reason: Fever >100.4 F Last Admin: 05/15/17 18:55 Dose: 650 mg Albuterol/Ipratropium (Duoneb 3 Mg/0.5 Mg (3 Ml) Ud) 3 ml INH RQ4 PRN PRN Reason: Shortness of Breath Amlodipine Besylate (Norvasc) 5 mg PO DAILY [facility] Last Admin: 05/18/17 09:37 Dose: Not Given Ascorbic Acid (Vitamin C 500 Mg Tab) 500 mg PO DAILY [facility] Last Admin: 05/18/17 09:36 Dose: 500 mg Atorvastatin Calcium (Lipitor) 10 mg PO DAILY [facility] Last Admin: 05/18/17 09:38 Dose: 10 mg Calcium Acetate (Phoslo) 1,334 mg PO WM [facility] Last Admin: 05/18/17 09:38 Dose: 1,334 mg Cholecalciferol (Vitamin D) 2,000 iu PO DAILY [facility] Last Admin: 05/18/17 09:55 Dose: 2,000 iu Epoetin Deni (Procrit) 4,000 unit SC MWF [facility] Last Admin: 05/18/17 09:56 Dose: 4,000 unit Heparin Sodium (Porcine) (Heparin) 5,000 units SC Q12 [facility] PRN Reason: Protocol Last Admin: 05/18/17 09:35 Dose: 5,000 units Heparin Sodium (Porcine) (Heparin) 2,000 units IVP MWF [facility] PRN Reason: Protocol Stop: 06/17/17 09:01 Last Admin: 05/18/17 10:02 Dose: Not Given Aztreonam 500 mg/ Sodium (Chloride) 50 mls @ 50 mls/hr IVPB Q12 [facility] PRN Reason: Protocol Last Admin: 05/18/17 09:34 Dose: 50 mls/hr Levofloxacin/Dextrose (Levaquin 500mg) 500 mg in 100 mls @ 100 mls/hr IVPB QOTHERDAY [facility] Last Admin: 05/18/17 09:54 Dose: 100 mls/hr Metoprolol Tartrate (Lopressor) 100 mg PO BID [facility] Last Admin: 05/18/17 09:39 Dose: Not Given Sevelamer Carbonate (Renvela) 0.8 gm PO TIDWM [facility] Last Admin: 05/18/17 09:36 Dose: 0.8 gm Vitamin B Complex/Vit C/Folic Acid (Nephro-Gregorio) 1 tab PO DAILY [facility] Last Admin: 05/18/17 09:36 Dose: 1 tab - Labs Labs: 05/18/17 05:55 05/18/17 05:55 PT 14.1 Seconds (9.8-13.1) H 05/14/17 22:44 INR 1.2 (0.9-1.2) 05/14/17 22:44 APTT 32.8 Seconds (25.6-37.1) 05/14/17 22:44 Assessment and Plan (1) Volume overload Status: Acute (2) Pulmonary edema Status: Acute (3) Acute kidney injury superimposed on chronic kidney disease Status: Acute (4) Anemia of chronic disease Status: Acute (5) Sepsis Status: Acute (6) Acute combined systolic and diastolic congestive heart failure Status: Acute - Assessment and Plan (Free Text) Plan: INCREASED AMLODIPINE.
[2017-05-18 13:17] LABS: CALCIUM 6.5 mg/dL (8.4-10.2); POTASSIUM 4.3 MMOL/L (3.6-5.0)
[2017-05-18 13:18] LABS: MAGNESIUM 1.7 MG/DL (1.6-2.3); PHOSPHOROUS 4.6 mg/dl (2.5-4.5)
--- NOTE | 2017-05-18 19:00 | US ---
PROCEDURE: Bilateral upper extremity duplex Doppler venous examination HISTORY: vein mapping COMPARISON: Not available TECHNIQUE: Examination of the internal jugular, subclavian, axillary, brachial veins was performed bilaterally. Cephalic and basilic veins were also evaluated. Basilic and cephalic diameters were assessed. FINDINGS: The examined vessels demonstrate no evidence of deep venous thrombosis bilaterally. Normal compressibility is demonstrated throughout the examined vessels. Respiratory phasicity and augmentation is demonstrated in all of the examined vessels. Right basilic vein and measures 8 mm in its mid and distal aspect. The right cephalic vein measures 4 mm proximally, 4 mm in its mid aspect and 3 mm distally. The left basilic vein measures 5 mm in its mid and distal aspect. The left cephalic vein measures 4 mm proximally, 3 mm in its mid aspect and 4 mm distally . IMPRESSION: No evidence of deep venous thrombosis in the right or left upper extremity. Basilic and cephalic diameters as reported above.
--- NOTE | 2017-05-18 22:45 | CP.PCM.PN ---
Subjective - Date & Time of Evaluation Date of Evaluation: 05/18/17 Time of Evaluation: 14:00 - Subjective Subjective: ON HD M W F ON EPO .. I ADDED VENOFER FOR ANEMIA OF CKD Objective - Vital Signs/Intake and Output Vital Signs (last 24 hours): Temp Pulse Resp BP Pulse Ox 98.2 F 75 19 149/85 95 05/18/17 15:43 05/18/17 22:00 05/18/17 15:43 05/18/17 22:00 05/18/17 15:43 Intake and Output: 05/18/17 05/19/17 18:59 06:59 Intake Total 150 Balance 150 - Medications Medications: Current Medications Acetaminophen (Tylenol 325mg Tab) 650 mg PO Q4 PRN PRN Reason: Fever >100.4 F Last Admin: 05/15/17 18:55 Dose: 650 mg Albuterol/Ipratropium (Duoneb 3 Mg/0.5 Mg (3 Ml) Ud) 3 ml INH RQ4 PRN PRN Reason: Shortness of Breath Amlodipine Besylate (Norvasc) 5 mg PO Q12 [facility] Last Admin: 05/18/17 22:00 Dose: 5 mg Ascorbic Acid (Vitamin C 500 Mg Tab) 500 mg PO DAILY [facility] Last Admin: 05/18/17 09:36 Dose: 500 mg Aspirin (Aspirin Chewable) 81 mg PO DAILY [facility] Last Admin: 05/18/17 13:41 Dose: 81 mg Atorvastatin Calcium (Lipitor) 10 mg PO DAILY [facility] Last Admin: 05/18/17 09:38 Dose: 10 mg Calcium Acetate (Phoslo) 1,334 mg PO WM [facility] Last Admin: 05/18/17 18:27 Dose: 1,334 mg Cholecalciferol (Vitamin D) 2,000 iu PO DAILY [facility] Last Admin: 05/18/17 09:55 Dose: 2,000 iu Epoetin Deni (Procrit) 4,000 unit SC MWF [facility] Last Admin: 05/18/17 19:25 Dose: Not Given Heparin Sodium (Porcine) (Heparin) 5,000 units SC Q12 [facility] PRN Reason: Protocol Last Admin: 05/18/17 22:00 Dose: 5,000 units Heparin Sodium (Porcine) (Heparin) 2,000 units IVP MWF [facility] PRN Reason: Protocol Stop: 06/17/17 09:01 Last Admin: 05/18/17 10:02 Dose: Not Given Aztreonam 500 mg/ Sodium (Chloride) 50 mls @ 50 mls/hr IVPB Q12 [facility] PRN Reason: Protocol Last Admin: 05/18/17 22:00 Dose: 50 mls/hr Levofloxacin/Dextrose (Levaquin 500mg) 500 mg in 100 mls @ 100 mls/hr IVPB QOTHERDAY [facility] Last Admin: 05/18/17 09:54 Dose: 100 mls/hr Iron Sucrose 100 mg/ Sodium (Chloride) 105 mls @ 105 mls/hr IVPB DAILY [facility] Metoprolol Tartrate (Lopressor) 100 mg PO BID [facility] Last Admin: 05/18/17 16:41 Dose: 100 mg Sevelamer Carbonate (Renvela) 0.8 gm PO TIDWM [facility] Last Admin: 05/18/17 16:41 Dose: 0.8 gm Vitamin B Complex/Vit C/Folic Acid (Nephro-Gregorio) 1 tab PO DAILY [facility] Last Admin: 05/18/17 09:36 Dose: 1 tab - Labs Labs: 05/18/17 05:55 05/18/17 12:20 PT 14.1 Seconds (9.8-13.1) H 05/14/17 22:44 INR 1.2 (0.9-1.2) 05/14/17 22:44 APTT 32.8 Seconds (25.6-37.1) 05/14/17 22:44
[2017-05-19 07:10] LABS: HEMATOCRIT 23.6 % (35.0-51.0); MEAN CELL VOLUME 92.8 fl (80.0-94.0); MEAN CORPUSCULAR HEMOGLOBIN 30.8 pg (27.0-31.0); MEAN CORPUSCULAR HGB CONC 33.2 g/dL (33.0-37.0); WHITE BLOOD COUNT 6.6 K/uL (4.8-10.8)
[2017-05-19 07:27] LABS: CALCIUM 6.6 mg/dL (8.4-10.2); MAGNESIUM 1.6 MG/DL (1.6-2.3); PHOSPHOROUS 5.4 mg/dl (2.5-4.5); POTASSIUM 4.9 MMOL/L (3.6-5.0)
[2017-05-19] MEDS: Sevelamer Carb 0.8 gm/Packet PO SCH ×3 (09:01→17:19)
[2017-05-19] MEDS: Multivitamin Vitamin B Complex (Nephro-Vite) Tab PO SCH (09:01)
--- NOTE | 2017-05-19 09:39 | CP.PCM.PN ---
Subjective - Date & Time of Evaluation Date of Evaluation: 05/19/17 Time of Evaluation: 09:39 - Subjective Subjective: SNORING LOUDLY DURING SLEEP TOLERATES BIPAP AT NIGHT Objective - Vital Signs/Intake and Output Vital Signs (last 24 hours): Temp Pulse Resp BP Pulse Ox 97.6 F 92 H 20 155/90 H 100 05/19/17 08:41 05/19/17 08:41 05/19/17 08:41 05/19/17 08:41 05/19/17 08:41 - Medications Medications: Current Medications Acetaminophen (Tylenol 325mg Tab) 650 mg PO Q4 PRN PRN Reason: Fever >100.4 F Last Admin: 05/15/17 18:55 Dose: 650 mg Albuterol/Ipratropium (Duoneb 3 Mg/0.5 Mg (3 Ml) Ud) 3 ml INH RQ4 PRN PRN Reason: Shortness of Breath Amlodipine Besylate (Norvasc) 5 mg PO Q12 [facility] Last Admin: 05/19/17 09:02 Dose: Not Given Ascorbic Acid (Vitamin C 500 Mg Tab) 500 mg PO DAILY [facility] Last Admin: 05/19/17 09:00 Dose: 500 mg Aspirin (Aspirin Chewable) 81 mg PO DAILY [facility] Last Admin: 05/19/17 09:00 Dose: 81 mg Atorvastatin Calcium (Lipitor) 10 mg PO DAILY [facility] Last Admin: 05/19/17 09:02 Dose: 10 mg Calcium Acetate (Phoslo) 1,334 mg PO WM [facility] Last Admin: 05/19/17 09:01 Dose: 1,334 mg Cholecalciferol (Vitamin D) 2,000 iu PO DAILY [facility] Last Admin: 05/19/17 09:01 Dose: 2,000 iu Epoetin Deni (Procrit) 4,000 unit SC MWF [facility] Last Admin: 05/18/17 19:25 Dose: Not Given Heparin Sodium (Porcine) (Heparin) 5,000 units SC Q12 [facility] PRN Reason: Protocol Last Admin: 05/19/17 09:00 Dose: 5,000 units Heparin Sodium (Porcine) (Heparin) 2,000 units IVP MWF [facility] PRN Reason: Protocol Stop: 06/17/17 09:01 Last Admin: 05/18/17 10:02 Dose: Not Given Aztreonam 500 mg/ Sodium (Chloride) 50 mls @ 50 mls/hr IVPB Q12 [facility] PRN Reason: Protocol Last Admin: 05/19/17 09:00 Dose: 50 mls/hr Levofloxacin/Dextrose (Levaquin 500mg) 500 mg in 100 mls @ 100 mls/hr IVPB QOTHERDAY [facility] Last Admin: 05/18/17 09:54 Dose: 100 mls/hr Iron Sucrose 100 mg/ Sodium (Chloride) 105 mls @ 105 mls/hr IVPB DAILY [facility] Metoprolol Tartrate (Lopressor) 100 mg PO BID [facility] Last Admin: 05/19/17 09:02 Dose: Not Given Sevelamer Carbonate (Renvela) 0.8 gm PO TIDWM [facility] Last Admin: 05/19/17 09:01 Dose: 0.8 gm Vitamin B Complex/Vit C/Folic Acid (Nephro-Gregorio) 1 tab PO DAILY [facility] Last Admin: 05/19/17 09:01 Dose: 1 tab - Labs Labs: 05/19/17 05:20 05/19/17 05:20 PT 14.1 Seconds (9.8-13.1) H 05/14/17 22:44 INR 1.2 (0.9-1.2) 05/14/17 22:44 APTT 32.8 Seconds (25.6-37.1) 05/14/17 22:44 - Head Exam Head Exam: ATRAUMATIC, NORMAL INSPECTION, NORMOCEPHALIC - Eye Exam Eye Exam: EOMI, Normal appearance, PERRL Pupil Exam: NORMAL ACCOMODATION, PERRL - ENT Exam ENT Exam: Mucous Membranes Moist, Normal Exam - Neck Exam Neck Exam: Full ROM, Normal Inspection. absent: Lymphadenopathy - Respiratory Exam Respiratory Exam: Clear to Ausculation Bilateral, NORMAL BREATHING PATTERN - Cardiovascular Exam Cardiovascular Exam: REGULAR RHYTHM, +S1, +S2. absent: Murmur - GI/Abdominal Exam GI & Abdominal Exam: Soft, Normal Bowel Sounds. absent: Tenderness - Rectal Exam Rectal Exam: NORMAL INSPECTION - Extremities Exam Extremities Exam: Full ROM, Normal Capillary Refill, Normal Inspection. absent : Joint Swelling, Pedal Edema - Back Exam Back Exam: NORMAL INSPECTION - Neurological Exam Neurological Exam: Alert, Awake, CN II-XII Intact, Normal Gait, Oriented x3 - Psychiatric Exam Psychiatric exam: Normal Affect, Normal Mood - Skin Skin Exam: Dry, Intact, Normal Color, Warm Assessment and Plan - Assessment and Plan (Free Text) Assessment: DARNELL SYNDROME UREMIA ANEMIA CHF/PNEUMONIA Plan: CONTINUE PRESENT RX
--- NOTE | 2017-05-19 10:01 | CP.PCM.PN ---
Objective - Vital Signs/Intake and Output Vital Signs (last 24 hours): Temp Pulse Resp BP Pulse Ox 97.6 F 92 H 20 155/90 H 100 05/19/17 08:41 05/19/17 08:41 05/19/17 08:41 05/19/17 08:41 05/19/17 08:41 - Medications Medications: Current Medications Acetaminophen (Tylenol 325mg Tab) 650 mg PO Q4 PRN PRN Reason: Fever >100.4 F Last Admin: 05/15/17 18:55 Dose: 650 mg Albuterol/Ipratropium (Duoneb 3 Mg/0.5 Mg (3 Ml) Ud) 3 ml INH RQ4 PRN PRN Reason: Shortness of Breath Amlodipine Besylate (Norvasc) 5 mg PO Q12 [facility] Last Admin: 05/19/17 09:02 Dose: Not Given Ascorbic Acid (Vitamin C 500 Mg Tab) 500 mg PO DAILY [facility] Last Admin: 05/19/17 09:00 Dose: 500 mg Aspirin (Aspirin Chewable) 81 mg PO DAILY [facility] Last Admin: 05/19/17 09:00 Dose: 81 mg Atorvastatin Calcium (Lipitor) 10 mg PO DAILY [facility] Last Admin: 05/19/17 09:02 Dose: 10 mg Calcium Acetate (Phoslo) 1,334 mg PO WM [facility] Last Admin: 05/19/17 09:01 Dose: 1,334 mg Cholecalciferol (Vitamin D) 2,000 iu PO DAILY [facility] Last Admin: 05/19/17 09:01 Dose: 2,000 iu Epoetin Deni (Procrit) 4,000 unit SC MWF [facility] Last Admin: 05/18/17 19:25 Dose: Not Given Heparin Sodium (Porcine) (Heparin) 5,000 units SC Q12 [facility] PRN Reason: Protocol Last Admin: 05/19/17 09:00 Dose: 5,000 units Heparin Sodium (Porcine) (Heparin) 2,000 units IVP MWF [facility] PRN Reason: Protocol Stop: 06/17/17 09:01 Last Admin: 05/18/17 10:02 Dose: Not Given Aztreonam 500 mg/ Sodium (Chloride) 50 mls @ 50 mls/hr IVPB Q12 [facility] PRN Reason: Protocol Last Admin: 05/19/17 09:00 Dose: 50 mls/hr Levofloxacin/Dextrose (Levaquin 500mg) 500 mg in 100 mls @ 100 mls/hr IVPB QOTHERDAY [facility] Last Admin: 05/18/17 09:54 Dose: 100 mls/hr Iron Sucrose 100 mg/ Sodium (Chloride) 105 mls @ 105 mls/hr IVPB DAILY [facility] Metoprolol Tartrate (Lopressor) 100 mg PO BID [facility] Last Admin: 05/19/17 09:02 Dose: Not Given Sevelamer Carbonate (Renvela) 0.8 gm PO TIDWM [facility] Last Admin: 05/19/17 09:01 Dose: 0.8 gm Vitamin B Complex/Vit C/Folic Acid (Nephro-Gregorio) 1 tab PO DAILY [facility] Last Admin: 05/19/17 09:01 Dose: 1 tab - Labs Labs: 05/19/17 05:20 05/19/17 05:20 PT 14.1 Seconds (9.8-13.1) H 05/14/17 22:44 INR 1.2 (0.9-1.2) 05/14/17 22:44 APTT 32.8 Seconds (25.6-37.1) 05/14/17 22:44 Assessment and Plan - Assessment and Plan (Free Text) Assessment: 56 years old male with hx of HTN, CKD, and urinary retention, comes with 2 days of dizziness when he stands up , fever, chills, nausea, SOB on exertion, and body aches. He has edema to both lower extremities for more than a week. In the ED his Temperature was 101.5F and respiratory rate of 24, with a SpO2 of 92% on RA. Creatinine 10. Improving today, no longer tremulous. Has received 2 courses of hemodialysis Sepsis sec to Pneumonia Pt came with temp of 101.5F; HR of 110; RR of 24 Currently afebrile, HR 66, RR 18 - consult Dr Sky - recommend IV Azactam and Levaquin, complete 1 week - given Vanco 1 gram x 1 - follow Blood culture - (prelim) no growth; gram stain pending - plan to dc on PO levaquin and omnicef to complete 7 days Bilateral Pneumonia - Consult Dr Pacheco Pulmonary appreciated - CXR: limited linear atelectasis at medial left base. Limited pulmonary venous congestion - Levofloxacin 750mg q 48hrs - Azactam 1gm Q8hrs - Vancomycin 1gm IVPB given once - duoneb PRN - continue BiPAP Acute on Chronic kidney disease stage V (on 04/02/17 Creatinine was 8.3 and BUN was 62); Now 10.6 and 71 - Consulted Dr Castillo Nephrology - HD x2 since admission - started Renagel and Phoslo for Hyperphosphatemia - HD today - L femoral access not working. Surgery was consulted to assess line ; Cathflo ordered per Dr. Castillo and administered - Discussed with Dr. Soto - tentatively scheduled for tunneled cath Sunday, 05/21 - Patient is [facility]. will set up outpatient HD Hypocalcemia sec to renal Dis , Hyperphosphatemia - Pt on renagel and Phoslo, increase dose - replace Calcium Volume Overload sec to Renal dis - emergent dialysis completed - IV Lasix given - Echo severe systolic dysfunction, EF 35%, wall motion abn, mod to severe MR Anemia of Chronic Kidney disease - Type and Cross - Transfuse 1unit PRBC with HD HTN - cont Norvasc, Metoprolol DVT prophylaxis - Heparin
--- NOTE | 2017-05-19 10:14 | CP.PCM.PN ---
Subjective - Date & Time of Evaluation Date of Evaluation: 05/19/17 Time of Evaluation: 06:45 - Subjective Subjective: Vascular Surgery- Dr. Soto Patient seen and examined at bedside this morning. yesterday cathflo was used in left femoral catheter site. after patient received dialysis. No acute complaints at this time. Denies pain, fevers, chills, nausea, vomiting, diarrhea. shaking and tremors have resolved at this time. Objective - Vital Signs/Intake and Output Vital Signs (last 24 hours): Temp Pulse Resp BP Pulse Ox 97.6 F 92 H 20 155/90 H 100 05/19/17 08:41 05/19/17 08:41 05/19/17 08:41 05/19/17 08:41 05/19/17 08:41 - Medications Medications: Current Medications Acetaminophen (Tylenol 325mg Tab) 650 mg PO Q4 PRN PRN Reason: Fever >100.4 F Last Admin: 05/15/17 18:55 Dose: 650 mg Albuterol/Ipratropium (Duoneb 3 Mg/0.5 Mg (3 Ml) Ud) 3 ml INH RQ4 PRN PRN Reason: Shortness of Breath Amlodipine Besylate (Norvasc) 5 mg PO Q12 [facility] Last Admin: 05/19/17 09:02 Dose: Not Given Ascorbic Acid (Vitamin C 500 Mg Tab) 500 mg PO DAILY [facility] Last Admin: 05/19/17 09:00 Dose: 500 mg Aspirin (Aspirin Chewable) 81 mg PO DAILY [facility] Last Admin: 05/19/17 09:00 Dose: 81 mg Atorvastatin Calcium (Lipitor) 10 mg PO DAILY [facility] Last Admin: 05/19/17 09:02 Dose: 10 mg Calcium Acetate (Phoslo) 1,334 mg PO WM [facility] Last Admin: 05/19/17 09:01 Dose: 1,334 mg Cholecalciferol (Vitamin D) 2,000 iu PO DAILY [facility] Last Admin: 05/19/17 09:01 Dose: 2,000 iu Epoetin Deni (Procrit) 4,000 unit SC MWF [facility] Last Admin: 05/18/17 19:25 Dose: Not Given Heparin Sodium (Porcine) (Heparin) 5,000 units SC Q12 [facility] PRN Reason: Protocol Last Admin: 05/19/17 09:00 Dose: 5,000 units Heparin Sodium (Porcine) (Heparin) 2,000 units IVP MWF [facility] PRN Reason: Protocol Stop: 06/17/17 09:01 Last Admin: 05/18/17 10:02 Dose: Not Given Aztreonam 500 mg/ Sodium (Chloride) 50 mls @ 50 mls/hr IVPB Q12 [facility] PRN Reason: Protocol Last Admin: 05/19/17 09:00 Dose: 50 mls/hr Levofloxacin/Dextrose (Levaquin 500mg) 500 mg in 100 mls @ 100 mls/hr IVPB QOTHERDAY [facility] Last Admin: 05/18/17 09:54 Dose: 100 mls/hr Iron Sucrose 100 mg/ Sodium (Chloride) 105 mls @ 105 mls/hr IVPB DAILY [facility] Metoprolol Tartrate (Lopressor) 100 mg PO BID [facility] Last Admin: 05/19/17 09:02 Dose: Not Given Sevelamer Carbonate (Renvela) 0.8 gm PO TIDWM [facility] Last Admin: 05/19/17 09:01 Dose: 0.8 gm Vitamin B Complex/Vit C/Folic Acid (Nephro-Gregorio) 1 tab PO DAILY [facility] Last Admin: 05/19/17 09:01 Dose: 1 tab - Labs Labs: 05/19/17 05:20 05/19/17 05:20 PT 14.1 Seconds (9.8-13.1) H 05/14/17 22:44 INR 1.2 (0.9-1.2) 05/14/17 22:44 APTT 32.8 Seconds (25.6-37.1) 05/14/17 22:44 - Constitutional Appears: Non-toxic, No Acute Distress - Eye Exam Eye Exam: EOMI. absent: Scleral icterus - ENT Exam ENT Exam: Mucous Membranes Moist - Respiratory Exam Respiratory Exam: NORMAL BREATHING PATTERN. absent: Accessory Muscle Use, Respiratory Distress - Cardiovascular Exam Cardiovascular Exam: +S1, +S2. absent: Bradycardia, Tachycardia - GI/Abdominal Exam GI & Abdominal Exam: Soft. absent: Distended, Firm, Guarding, Rigid, Tenderness - Extremities Exam Additional comments: Left femoral catheter site, clean, dry, intact. - Neurological Exam Neurological Exam: Alert, Awake, Oriented x3 - Psychiatric Exam Psychiatric exam: Normal Affect - Skin Skin Exam: Intact, Normal Color, Warm Assessment and Plan - Assessment and Plan (Free Text) Assessment: 56M ESRD Left femoral shiley catheter placement. On hemodialysis MWF Plan: fistula and permacath placement this week replace electrolyte PRN medical management per primary HD MWF further recs per Dr. Charles Bueno PGY1
--- NOTE | 2017-05-19 11:28 | CP.PCM.PN ---
Subjective - Date & Time of Evaluation Date of Evaluation: 05/19/17 Time of Evaluation: 11:00 - Subjective Subjective: No fever Denies CP no SOB No abd pain Did not get HD yesterday bec his catheter was not working. Cathlo used and HD cath now ok Paln for HD today Objective - Vital Signs/Intake and Output Vital Signs (last 24 hours): Temp Pulse Resp BP Pulse Ox 97.6 F 92 H 20 155/90 H 100 05/19/17 08:41 05/19/17 08:41 05/19/17 08:41 05/19/17 08:41 05/19/17 08:41 - Medications Medications: Current Medications Acetaminophen (Tylenol 325mg Tab) 650 mg PO Q4 PRN PRN Reason: Fever >100.4 F Last Admin: 05/15/17 18:55 Dose: 650 mg Albuterol/Ipratropium (Duoneb 3 Mg/0.5 Mg (3 Ml) Ud) 3 ml INH RQ4 PRN PRN Reason: Shortness of Breath Amlodipine Besylate (Norvasc) 5 mg PO Q12 [facility] Last Admin: 05/19/17 09:02 Dose: Not Given Ascorbic Acid (Vitamin C 500 Mg Tab) 500 mg PO DAILY [facility] Last Admin: 05/19/17 09:00 Dose: 500 mg Aspirin (Aspirin Chewable) 81 mg PO DAILY [facility] Last Admin: 05/19/17 09:00 Dose: 81 mg Atorvastatin Calcium (Lipitor) 10 mg PO DAILY [facility] Last Admin: 05/19/17 09:02 Dose: 10 mg Calcium Acetate (Phoslo) 1,334 mg PO WM [facility] Last Admin: 05/19/17 09:01 Dose: 1,334 mg Cholecalciferol (Vitamin D) 2,000 iu PO DAILY [facility] Last Admin: 05/19/17 09:01 Dose: 2,000 iu Epoetin Deni (Procrit) 4,000 unit SC MWF [facility] Last Admin: 05/18/17 19:25 Dose: Not Given Heparin Sodium (Porcine) (Heparin) 5,000 units SC Q12 [facility] PRN Reason: Protocol Last Admin: 05/19/17 09:00 Dose: 5,000 units Heparin Sodium (Porcine) (Heparin) 2,000 units IVP MWF [facility] PRN Reason: Protocol Stop: 06/17/17 09:01 Last Admin: 05/18/17 10:02 Dose: Not Given Aztreonam 500 mg/ Sodium (Chloride) 50 mls @ 50 mls/hr IVPB Q12 [facility] PRN Reason: Protocol Last Admin: 05/19/17 09:00 Dose: 50 mls/hr Levofloxacin/Dextrose (Levaquin 500mg) 500 mg in 100 mls @ 100 mls/hr IVPB QOTHERDAY [facility] Last Admin: 05/18/17 09:54 Dose: 100 mls/hr Iron Sucrose 100 mg/ Sodium (Chloride) 105 mls @ 105 mls/hr IVPB DAILY [facility] Last Admin: 05/19/17 10:42 Dose: 105 mls/hr Metoprolol Tartrate (Lopressor) 100 mg PO BID [facility] Last Admin: 05/19/17 09:02 Dose: Not Given Sevelamer Carbonate (Renvela) 0.8 gm PO TIDWM [facility] Last Admin: 05/19/17 09:01 Dose: 0.8 gm Vitamin B Complex/Vit C/Folic Acid (Nephro-Gregorio) 1 tab PO DAILY [facility] Last Admin: 05/19/17 09:01 Dose: 1 tab - Labs Labs: 05/19/17 05:20 05/19/17 05:20 PT 14.1 Seconds (9.8-13.1) H 05/14/17 22:44 INR 1.2 (0.9-1.2) 05/14/17 22:44 APTT 32.8 Seconds (25.6-37.1) 05/14/17 22:44 - Constitutional Appears: Non-toxic, Older Than Stated Age, Chronically Ill - Head Exam Head Exam: NORMAL INSPECTION, NORMOCEPHALIC - Eye Exam Eye Exam: EOMI, PERRL Pupil Exam: NORMAL ACCOMODATION - ENT Exam ENT Exam: Mucous Membranes Dry, Normal External Ear Exam - Neck Exam Neck Exam: Full ROM. absent: Meningismus - Respiratory Exam Respiratory Exam: Rales, Rhonchi, NORMAL BREATHING PATTERN. absent: Respiratory Distress - Cardiovascular Exam Cardiovascular Exam: REGULAR RHYTHM, +S1, +S2 - GI/Abdominal Exam GI & Abdominal Exam: Soft, Normal Bowel Sounds. absent: Tenderness - Extremities Exam Extremities Exam: Full ROM, Normal Capillary Refill, Pedal Edema. absent: Calf Tenderness left groin HD ( Papi )catheter - Back Exam Back Exam: Full ROM. absent: CVA tenderness (L), CVA tenderness (R) - Neurological Exam Neurological Exam: Alert, Awake, CN II-XII Intact, Oriented x3 Neuro motor strength exam: Left Upper Extremity: 5, Right Upper Extremity: 5, Left Lower Extremity: 5, Right Lower Extremity: 5 - Psychiatric Exam Psychiatric exam: Flat Affect - Skin Skin Exam: Dry, Normal Color, Warm Assessment and Plan - Assessment and Plan (Free Text) Assessment: 56 years old male with hx of HTN, CKD, and urinary retention, came in with 2 days of dizziness when he stands up , fever, chills, nausea, SOB on exertion, and body aches. He has edema to both lower extremities for more than a week. In the ED his Temperature was 101.5F and respiratory rate of 24, with a SpO2 of 92% on RA. Creatinine 10. 1. Sepsis sec to Pneumonia Pt came with temp of 101.5F; HR of 110; RR of 24 Currently afebrile - consulted Dr Sky - recommend IV Azactam and Levaquin, complete 1 week ( pt allergic to PCN) - given Vanco 1 gram x 1 - Blood c/s: no growth - Consult Dr Pacheco Pulmonary appreciated - CXR: limited linear atelectasis at medial left base. Limited pulmonary venous congestion - Levofloxacin 750mg q 48hrs - Azactam 1gm Q8hrs - Vancomycin 1gm IVPB given once - duoneb PRN - continue BiPAP q hs 2. Acute on Chronic kidney disease , now ESRD on HD (on 04/02/17 Creatinine was 8.3 and BUN was 62) on admission : 10.6 and 71 - Consulted Dr Castillo Nephrology - HD MWF - started Renagel and Phoslo for Hyperphosphatemia - Discussed with Dr. Soto - tentatively scheduled for tunneled cath Sunday, 05/21 - Patient is [facility] HD. will set up outpatient HD 3. Hypocalcemia sec to renal Dis , Hyperphosphatemia - Pt on renagel and Phoslo, increase dose - replace Calcium 4. Volume Overload sec to Renal dis - emergent dialysis completed - IV Lasix given - Echo severe systolic dysfunction, EF 35%, wall motion abn, mod to severe MR 5. Anemia of Chronic Kidney disease - cont Venofer and Epogen - Transfuse 1unit PRBC with HD 6. HTN - cont Norvasc, Metoprolol DVT prophylaxis - Heparin
--- NOTE | 2017-05-19 12:40 | CP.PCM.PN ---
Subjective - Date & Time of Evaluation Date of Evaluation: 05/19/17 Time of Evaluation: 12:40 Objective - Vital Signs/Intake and Output Vital Signs (last 24 hours): Temp Pulse Resp BP Pulse Ox 97.6 F 92 H 20 155/90 H 100 05/19/17 08:41 05/19/17 08:41 05/19/17 08:41 05/19/17 08:41 05/19/17 08:41 - Medications Medications: Current Medications Acetaminophen (Tylenol 325mg Tab) 650 mg PO Q4 PRN PRN Reason: Fever >100.4 F Last Admin: 05/15/17 18:55 Dose: 650 mg Albuterol/Ipratropium (Duoneb 3 Mg/0.5 Mg (3 Ml) Ud) 3 ml INH RQ4 PRN PRN Reason: Shortness of Breath Amlodipine Besylate (Norvasc) 5 mg PO Q12 [facility] Last Admin: 05/19/17 09:02 Dose: Not Given Ascorbic Acid (Vitamin C 500 Mg Tab) 500 mg PO DAILY [facility] Last Admin: 05/19/17 09:00 Dose: 500 mg Aspirin (Aspirin Chewable) 81 mg PO DAILY [facility] Last Admin: 05/19/17 09:00 Dose: 81 mg Atorvastatin Calcium (Lipitor) 10 mg PO DAILY [facility] Last Admin: 05/19/17 09:02 Dose: 10 mg Calcium Acetate (Phoslo) 1,334 mg PO WM [facility] Last Admin: 05/19/17 12:32 Dose: 1,334 mg Cholecalciferol (Vitamin D) 2,000 iu PO DAILY [facility] Last Admin: 05/19/17 09:01 Dose: 2,000 iu Epoetin Deni (Procrit) 4,000 unit SC [facility] Last Admin: 05/18/17 19:25 Dose: Not Given Heparin Sodium (Porcine) (Heparin) 5,000 units SC Q12 [facility] PRN Reason: Protocol Last Admin: 05/19/17 09:00 Dose: 5,000 units Heparin Sodium (Porcine) (Heparin) 2,000 units IVP [facility] PRN Reason: Protocol Stop: 06/17/17 09:01 Last Admin: 05/18/17 10:02 Dose: Not Given Aztreonam 500 mg/ Sodium (Chloride) 50 mls @ 50 mls/hr IVPB Q12 [facility] PRN Reason: Protocol Last Admin: 05/19/17 09:00 Dose: 50 mls/hr Levofloxacin/Dextrose (Levaquin 500mg) 500 mg in 100 mls @ 100 mls/hr IVPB QOTHERDAY [facility] Last Admin: 05/18/17 09:54 Dose: 100 mls/hr Iron Sucrose 100 mg/ Sodium (Chloride) 105 mls @ 105 mls/hr IVPB DAILY [facility] Last Admin: 05/19/17 10:42 Dose: 105 mls/hr Magnesium Sulfate 1 gm/ Sodium (Chloride) 102 mls @ 204 mls/hr IVPB ONCE ONE PRN Reason: 1 GM/30 MIN Stop: 05/19/17 13:06 Metoprolol Tartrate (Lopressor) 100 mg PO BID [facility] Last Admin: 05/19/17 09:02 Dose: Not Given Sevelamer Carbonate (Renvela) 0.8 gm PO TIDWM [facility] Last Admin: 05/19/17 12:31 Dose: 0.8 gm Vitamin B Complex/Vit C/Folic Acid (Nephro-Gregorio) 1 tab PO DAILY [facility] Last Admin: 05/19/17 09:01 Dose: 1 tab - Labs Labs: 05/19/17 05:20 05/19/17 05:20 PT 14.1 Seconds (9.8-13.1) H 05/14/17 22:44 INR 1.2 (0.9-1.2) 05/14/17 22:44 APTT 32.8 Seconds (25.6-37.1) 05/14/17 22:44 Assessment and Plan (1) Volume overload Status: Acute (2) Pulmonary edema Status: Acute (3) Acute kidney injury superimposed on chronic kidney disease Status: Acute (4) Anemia of chronic disease Status: Acute (5) Sepsis Status: Acute (6) Acute combined systolic and diastolic congestive heart failure Status: Acute - Assessment and Plan (Free Text) Plan: bnp less. cr high. need to cont volume removal via hd. increase mteoprolol frequency - optimal hr is 55 to 60. Restart ACEI once okay with nephrology. repleated mag
[2017-05-19 13:22] LABS: RBC URINE 1 /hpf (0-3); URINE BILIRUBIN NEGATIVE (NEGATIVE); URINE BLOOD SMALL (NEGATIVE); URINE COLOR STRAW (YELLOW); URINE GLUCOSE (UA) 50 mg/dL (Normal); URINE KETONE NEGATIVE (NEGATIVE); URINE LEUKOCYTE ESTERASE TRACE Leu/uL (Negative); URINE PROTEIN 100 mg/dL (NEGATIVE); URINE UROBILINOGEN 0.2-1.0 mg/dL (0.2-1.0); WBC URINE 4 /hpf (0-5)
[2017-05-19] MEDS: Epoetin Alfa 4000 UNIT/ML Inj SC SCH (14:13)
[2017-05-19] MEDS ORDERED: Calcium Gluconate 4.65 mEq/10 ml Inj IV ONE (17:30)
[2017-05-19] MEDS ORDERED: CALCIUM GLUCONATE IV ONE (18:30)
[2017-05-19] MEDS ORDERED: WATER IV ONE (18:30)
[2017-05-19] MEDS ORDERED: DEXTROSE 5% IV ONE (18:30)
[2017-05-20 07:12] LABS: MEAN CELL VOLUME 92.5 fl (80.0-94.0); MEAN CORPUSCULAR HEMOGLOBIN 30.4 pg (27.0-31.0); MEAN CORPUSCULAR HGB CONC 32.9 g/dL (33.0-37.0); RED CELL DISTRIBUTION WIDTH 14.7 % (11.5-14.5); WHITE BLOOD COUNT 6.7 K/uL (4.8-10.8)
[2017-05-20 07:38] LABS: CALCIUM 7.1 mg/dL (8.4-10.2); POTASSIUM 4.8 MMOL/L (3.6-5.0)
--- NOTE | 2017-05-20 08:25 | CP.PCM.PN ---
Subjective - Date & Time of Evaluation Date of Evaluation: 05/20/17 Time of Evaluation: 07:00 - Subjective Subjective: Vascular Surgery- Dr. Soto Patient seen and examined at bedside this AM. No acute events overnight. patient received HD yesterday. Denies Fevers, chills, chest pain, shortness of breath, nausea, vomiting, diarrhea Objective - Vital Signs/Intake and Output Vital Signs (last 24 hours): Temp Pulse Resp BP Pulse Ox 97.8 F 80 20 130/76 97 05/20/17 07:27 05/20/17 07:27 05/20/17 07:27 05/20/17 07:27 05/20/17 07:27 Intake and Output: 05/20/17 05/20/17 06:59 18:59 Intake Total 550 Output Total 200 Balance 350 - Medications Medications: Current Medications Acetaminophen (Tylenol 325mg Tab) 650 mg PO Q4 PRN PRN Reason: Fever >100.4 F Last Admin: 05/15/17 18:55 Dose: 650 mg Albuterol/Ipratropium (Duoneb 3 Mg/0.5 Mg (3 Ml) Ud) 3 ml INH RQ4 PRN PRN Reason: Shortness of Breath Amlodipine Besylate (Norvasc) 5 mg PO Q12 [facility] Last Admin: 05/19/17 21:45 Dose: 5 mg Ascorbic Acid (Vitamin C 500 Mg Tab) 500 mg PO DAILY [facility] Last Admin: 05/19/17 09:00 Dose: 500 mg Aspirin (Aspirin Chewable) 81 mg PO DAILY [facility] Last Admin: 05/19/17 09:00 Dose: 81 mg Atorvastatin Calcium (Lipitor) 10 mg PO DAILY [facility] Last Admin: 05/19/17 09:02 Dose: 10 mg Calcium Acetate (Phoslo) 1,334 mg PO WM [facility] Last Admin: 05/19/17 17:42 Dose: 1,334 mg Cholecalciferol (Vitamin D) 2,000 iu PO DAILY [facility] Last Admin: 05/19/17 09:01 Dose: 2,000 iu Epoetin Deni (Procrit) 4,000 unit SC MWF [facility] Last Admin: 05/19/17 14:13 Dose: 4,000 unit Heparin Sodium (Porcine) (Heparin) 5,000 units SC Q12 [facility] PRN Reason: Protocol Last Admin: 05/19/17 21:45 Dose: 5,000 units Heparin Sodium (Porcine) (Heparin) 2,000 units IVP MWF [facility] PRN Reason: Protocol Stop: 06/17/17 09:01 Last Admin: 05/18/17 10:02 Dose: Not Given Aztreonam 500 mg/ Sodium (Chloride) 50 mls @ 50 mls/hr IVPB Q12 [facility] PRN Reason: Protocol Last Admin: 05/19/17 21:44 Dose: 50 mls/hr Levofloxacin/Dextrose (Levaquin 500mg) 500 mg in 100 mls @ 100 mls/hr IVPB QOTHERDAY [facility] Last Admin: 05/18/17 09:54 Dose: 100 mls/hr Iron Sucrose 100 mg/ Sodium (Chloride) 105 mls @ 105 mls/hr IVPB DAILY [facility] Last Admin: 05/19/17 10:42 Dose: 105 mls/hr Metoprolol Tartrate (Lopressor) 75 mg PO Q8 [facility] Last Admin: 05/20/17 01:10 Dose: 75 mg Sevelamer Carbonate (Renvela) 0.8 gm PO TIDWM [facility] Last Admin: 05/19/17 17:19 Dose: 0.8 gm Vitamin B Complex/Vit C/Folic Acid (Nephro-Gregorio) 1 tab PO DAILY [facility] Last Admin: 05/19/17 09:01 Dose: 1 tab - Labs Labs: 05/20/17 05:20 05/20/17 05:20 PT 14.1 Seconds (9.8-13.1) H 05/14/17 22:44 INR 1.2 (0.9-1.2) 05/14/17 22:44 APTT 32.8 Seconds (25.6-37.1) 05/14/17 22:44 - Constitutional Appears: Non-toxic, No Acute Distress - Eye Exam Eye Exam: EOMI. absent: Scleral icterus - Respiratory Exam Respiratory Exam: absent: Accessory Muscle Use - Cardiovascular Exam Cardiovascular Exam: +S1, +S2. absent: Bradycardia, Tachycardia - Extremities Exam Additional comments: Left groin catheter in place. dressing clean, dry intact. - Neurological Exam Neurological Exam: Alert, Awake, Oriented x3 - Psychiatric Exam Psychiatric exam: Normal Affect - Skin Skin Exam: Normal Color, Warm Assessment and Plan - Assessment and Plan (Free Text) Assessment: 56M ESRD Left femoral shiley catheter placement. On hemodialysis MWF fistula and permacath placement replace electrolyte PRN medical management per primary HD MWF discussed w/ Dr. Charles Bueno PGY1
[2017-05-20] MEDS: Multivitamin Vitamin B Complex (Nephro-Vite) Tab PO SCH (08:50)
[2017-05-20] MEDS: Sevelamer Carb 0.8 gm/Packet PO SCH ×3 (08:51→17:50)
--- NOTE | 2017-05-20 11:13 | CP.PCM.PN ---
Subjective - Date & Time of Evaluation Date of Evaluation: 05/20/17 Time of Evaluation: 10:45 - Subjective Subjective: No fever denies SOB at present no cought no CP no abd pain uses Bipap q hs plan for poss Permacath and ?AV Fistula Sx in am Objective - Vital Signs/Intake and Output Vital Signs (last 24 hours): Temp Pulse Resp BP Pulse Ox 97.8 F 80 20 130/76 97 05/20/17 07:27 05/20/17 08:49 05/20/17 07:27 05/20/17 08:49 05/20/17 07:27 Intake and Output: 05/20/17 05/20/17 06:59 18:59 Intake Total 550 Output Total 200 Balance 350 - Medications Medications: Current Medications Acetaminophen (Tylenol 325mg Tab) 650 mg PO Q4 PRN PRN Reason: Fever >100.4 F Last Admin: 05/15/17 18:55 Dose: 650 mg Albuterol/Ipratropium (Duoneb 3 Mg/0.5 Mg (3 Ml) Ud) 3 ml INH RQ4 PRN PRN Reason: Shortness of Breath Amlodipine Besylate (Norvasc) 5 mg PO Q12 [facility] Last Admin: 05/20/17 08:49 Dose: 5 mg Ascorbic Acid (Vitamin C 500 Mg Tab) 500 mg PO DAILY [facility] Last Admin: 05/20/17 08:50 Dose: 500 mg Aspirin (Aspirin Chewable) 81 mg PO DAILY [facility] Last Admin: 05/20/17 08:49 Dose: 81 mg Atorvastatin Calcium (Lipitor) 10 mg PO DAILY [facility] Last Admin: 05/20/17 08:51 Dose: 10 mg Calcium Acetate (Phoslo) 1,334 mg PO WM [facility] Last Admin: 05/20/17 08:50 Dose: 1,334 mg Cholecalciferol (Vitamin D) 2,000 iu PO DAILY [facility] Last Admin: 05/20/17 08:51 Dose: 2,000 iu Epoetin Deni (Procrit) 4,000 unit SC MWF [facility] Last Admin: 05/19/17 14:13 Dose: 4,000 unit Heparin Sodium (Porcine) (Heparin) 5,000 units SC Q12 [facility] PRN Reason: Protocol Last Admin: 05/20/17 08:50 Dose: 5,000 units Heparin Sodium (Porcine) (Heparin) 2,000 units IVP MWF [facility] PRN Reason: Protocol Stop: 06/17/17 09:01 Last Admin: 05/18/17 10:02 Dose: Not Given Aztreonam 500 mg/ Sodium (Chloride) 50 mls @ 50 mls/hr IVPB Q12 [facility] PRN Reason: Protocol Last Admin: 05/20/17 08:51 Dose: 50 mls/hr Levofloxacin/Dextrose (Levaquin 500mg) 500 mg in 100 mls @ 100 mls/hr IVPB QOTHERDAY [facility] Last Admin: 05/18/17 09:54 Dose: 100 mls/hr Iron Sucrose 100 mg/ Sodium (Chloride) 105 mls @ 105 mls/hr IVPB DAILY [facility] Last Admin: 05/19/17 10:42 Dose: 105 mls/hr Metoprolol Tartrate (Lopressor) 75 mg PO Q8 [facility] Last Admin: 05/20/17 08:49 Dose: 75 mg Sevelamer Carbonate (Renvela) 0.8 gm PO TIDWM [facility] Last Admin: 05/20/17 08:51 Dose: 0.8 gm Vitamin B Complex/Vit C/Folic Acid (Nephro-Gregorio) 1 tab PO DAILY [facility] Last Admin: 05/20/17 08:50 Dose: 1 tab - Labs Labs: 05/20/17 05:20 05/20/17 05:20 PT 14.1 Seconds (9.8-13.1) H 05/14/17 22:44 INR 1.2 (0.9-1.2) 05/14/17 22:44 APTT 32.8 Seconds (25.6-37.1) 05/14/17 22:44 - Constitutional Appears: Non-toxic, Older Than Stated Age, Chronically Ill - Head Exam Head Exam: NORMAL INSPECTION, NORMOCEPHALIC - Eye Exam Eye Exam: EOMI, PERRL Pupil Exam: NORMAL ACCOMODATION - ENT Exam ENT Exam: Mucous Membranes Dry, Normal External Ear Exam - Neck Exam Neck Exam: Full ROM. absent: Meningismus - Respiratory Exam Respiratory Exam: Rales, Rhonchi, NORMAL BREATHING PATTERN. absent: Respiratory Distress - Cardiovascular Exam Cardiovascular Exam: REGULAR RHYTHM, +S1, +S2 - GI/Abdominal Exam GI & Abdominal Exam: Soft, Normal Bowel Sounds. absent: Tenderness - Extremities Exam Extremities Exam: Full ROM, Normal Capillary Refill, Pedal Edema. absent: Calf Tenderness left groin HD ( Papi )catheter - Back Exam Back Exam: Full ROM. absent: CVA tenderness (L), CVA tenderness (R) - Neurological Exam Neurological Exam: Alert, Awake, CN II-XII Intact, Oriented x3 Neuro motor strength exam: Left Upper Extremity: 5, Right Upper Extremity: 5, Left Lower Extremity: 5, Right Lower Extremity: 5 - Psychiatric Exam Psychiatric exam: Flat Affect - Skin Skin Exam: Dry, Normal Color, Warm Assessment and Plan - Assessment and Plan (Free Text) Assessment: 56 years old male with hx of HTN, CKD, and urinary retention, came in with 2 days of dizziness when he stands up , fever, chills, nausea, SOB on exertion, and body aches. He has edema to both lower extremities for more than a week. In the ED his Temperature was 101.5F and respiratory rate of 24, with a SpO2 of 92% on RA. Creatinine 10. Emergent Hemodialysis started. Pt was also started on IV antibiotics. 1. Sepsis sec to Pneumonia Pt came with temp of 101.5F; HR of 110; RR of 24 Currently afebrile - consulted Dr Sky- recommend IV Azactam and Levaquin, complete 1 week ( pt allergic to PCN) - given Vanco 1 gram x 1 - Blood c/s: no growth - Consult Dr Pacheco Pulmonary appreciated - CXR: limited linear atelectasis at medial left base. Limited pulmonary venous congestion - duoneb PRN - continue BiPAP q hs 2. Acute on Chronic kidney disease , now ESRD on HD (on 04/02/17 Creatinine was 8.3 and BUN was 62) on admission : 10.6 and 71 - Consulted Dr Castillo Nephrology - HD MWF - started Renagel and Phoslo for Hyperphosphatemia - Dr Soto consulted for Permacath placement - tentatively scheduled for tunneled cath/AV Fistula tomorrow, 05/21 - Rehab/Pre Vocational Counselor : Dr Soto consulted - ok to proceed with procedure , Volume overload is due to Renal Failure and not CHF. - will set up outpatient HD 3. Hypocalcemia sec to renal Dis , Hyperphosphatemia - Pt on renagel and Phoslo, increased dose - replaced with Calcium Gluc IV -check ionized calcium 4. Volume Overload sec to Renal dis - emergent dialysis completed - IV Lasix given - Echo severe systolic dysfunction, EF 35%, wall motion abn, mod to severe MR 5. Suspected Sleep Apnea discussed with Dr Pacheco - rec outpt Sleep Study - Bipap q hs 6. Anemia of Chronic Kidney disease - cont Venofer and Epogen - Transfused 1unit PRBC with HD yesterday 7. HTN - cont Norvasc, Metoprolol DVT prophylaxis - Heparin- hold , pt for poss OR
--- NOTE | 2017-05-20 11:36 | CP.PCM.PN ---
Subjective - Date & Time of Evaluation Date of Evaluation: 05/20/17 Time of Evaluation: 11:00 - Subjective Subjective: Reviewed history/labs as well as electrolyte derangements. Discussed operative plan of care with primary team; focus is to optimize the patient as feasible preoperatively. This includes but is not limited to correction and subsequent redrawing as part of the am labs of blood calcium levels (ionized included). Also noted and discussed was the cardiac evaluation yesterday which most likely had occurred prior to HD; plan also includes but is not limited to optimization from a cardiac/consulted services standpoint. Anesthesia Wilber Crowley Objective - Vital Signs/Intake and Output Vital Signs (last 24 hours): Temp Pulse Resp BP Pulse Ox 97.8 F 80 20 130/76 97 05/20/17 07:27 05/20/17 08:49 05/20/17 07:27 05/20/17 08:49 05/20/17 07:27 Intake and Output: 05/20/17 05/20/17 06:59 18:59 Intake Total 550 Output Total 200 Balance 350 - Medications Medications: Current Medications Acetaminophen (Tylenol 325mg Tab) 650 mg PO Q4 PRN PRN Reason: Fever >100.4 F Last Admin: 05/15/17 18:55 Dose: 650 mg Albuterol/Ipratropium (Duoneb 3 Mg/0.5 Mg (3 Ml) Ud) 3 ml INH RQ4 PRN PRN Reason: Shortness of Breath Amlodipine Besylate (Norvasc) 5 mg PO Q12 [facility] Last Admin: 05/20/17 08:49 Dose: 5 mg Ascorbic Acid (Vitamin C 500 Mg Tab) 500 mg PO DAILY [facility] Last Admin: 05/20/17 08:50 Dose: 500 mg Aspirin (Aspirin Chewable) 81 mg PO DAILY [facility] Last Admin: 05/20/17 08:49 Dose: 81 mg Atorvastatin Calcium (Lipitor) 10 mg PO DAILY [facility] Last Admin: 05/20/17 08:51 Dose: 10 mg Calcium Acetate (Phoslo) 1,334 mg PO WM [facility] Last Admin: 05/20/17 08:50 Dose: 1,334 mg Cholecalciferol (Vitamin D) 2,000 iu PO DAILY [facility] Last Admin: 05/20/17 08:51 Dose: 2,000 iu Epoetin Deni (Procrit) 4,000 unit SC [facility] [place] Last Admin: 05/19/17 14:13 Dose: 4,000 unit Heparin Sodium (Porcine) (Heparin) 5,000 units SC Q12 [facility] PRN Reason: Protocol Last Admin: 05/20/17 08:50 Dose: 5,000 units Heparin Sodium (Porcine) (Heparin) 2,[facility] PRN Reason: Protocol Stop: 06/17/17 09:01 Last Admin: 05/18/17 10:02 Dose: Not Given Aztreonam 500 mg/ Sodium (Chloride) 50 mls @ 50 mls/hr IVPB Q12 [facility] PRN Reason: Protocol Last Admin: 05/20/17 08:51 Dose: 50 mls/hr Levofloxacin/Dextrose (Levaquin 500mg) 500 mg in 100 mls @ 100 mls/hr IVPB QOTHERDAY [facility] Last Admin: 05/18/17 09:54 Dose: 100 mls/hr Iron Sucrose 100 mg/ Sodium (Chloride) 105 mls @ 105 mls/hr IVPB DAILY [facility] Last Admin: 05/19/17 10:42 Dose: 105 mls/hr Metoprolol Tartrate (Lopressor) 75 mg PO Q8 [facility] Last Admin: 05/20/17 08:49 Dose: 75 mg Sevelamer Carbonate (Renvela) 0.8 gm PO TIDWM [facility] Last Admin: 05/20/17 08:51 Dose: 0.8 gm Vitamin B Complex/Vit C/Folic Acid (Nephro-Gregoroi) 1 tab PO DAILY [facility] Last Admin: 05/20/17 08:50 Dose: 1 tab - Labs Labs: 05/20/17 05:20 05/20/17 05:20 PT 14.1 Seconds (9.8-13.1) H 05/14/17 22:44 INR 1.2 (0.9-1.2) 05/14/17 22:44 APTT 32.8 Seconds (25.6-37.1) 05/14/17 22:44
[2017-05-20] MEDS: levoFLOXacin 500 mg in D5W 500 MG/100 ML BAG IVPB SCH (12:26)
[2017-05-20 12:56] LABS: PHOSPHOROUS 3.8 mg/dl (2.5-4.5)
--- NOTE | 2017-05-20 15:34 | CP.PCM.PN ---
Subjective - Date & Time of Evaluation Date of Evaluation: 05/20/17 Time of Evaluation: 15:00 - Subjective Subjective: ESRD ON HD M W F FOR AVF AND TESSIO IN AM ANEMIA OF CKD .. ON EPO + VENOFERE C/O CURRENT CARE Objective - Vital Signs/Intake and Output Vital Signs (last 24 hours): Temp Pulse Resp BP Pulse Ox 97.8 F 80 20 130/76 97 05/20/17 07:27 05/20/17 08:49 05/20/17 07:27 05/20/17 08:49 05/20/17 07:27 Intake and Output: 05/20/17 05/20/17 06:59 18:59 Intake Total 550 Output Total 200 Balance 350 - Medications Medications: Current Medications Acetaminophen (Tylenol 325mg Tab) 650 mg PO Q4 PRN PRN Reason: Fever >100.4 F Last Admin: 05/15/17 18:55 Dose: 650 mg Albuterol/Ipratropium (Duoneb 3 Mg/0.5 Mg (3 Ml) Ud) 3 ml INH RQ4 PRN PRN Reason: Shortness of Breath Amlodipine Besylate (Norvasc) 5 mg PO Q12 [facility] Last Admin: 05/20/17 08:49 Dose: 5 mg Ascorbic Acid (Vitamin C 500 Mg Tab) 500 mg PO DAILY [facility] Last Admin: 05/20/17 08:50 Dose: 500 mg Atorvastatin Calcium (Lipitor) 10 mg PO DAILY [facility] Last Admin: 05/20/17 08:51 Dose: 10 mg Calcium Acetate (Phoslo) 1,334 mg PO WM [facility] Last Admin: 05/20/17 12:25 Dose: 1,334 mg Cholecalciferol (Vitamin D) 2,000 iu PO DAILY [facility] Last Admin: 05/20/17 08:51 Dose: 2,000 iu Epoetin Deni (Procrit) 4,000 unit SC MWF [facility] Last Admin: 05/19/17 14:13 Dose: 4,000 unit Heparin Sodium (Porcine) (Heparin) 5,000 units SC Q12 [facility] PRN Reason: Protocol Last Admin: 05/20/17 08:50 Dose: 5,000 units Heparin Sodium (Porcine) (Heparin) 2,000 units IVP MWF [facility] PRN Reason: Protocol Stop: 06/17/17 09:01 Last Admin: 05/18/17 10:02 Dose: Not Given Aztreonam 500 mg/ Sodium (Chloride) 50 mls @ 50 mls/hr IVPB Q12 [facility] PRN Reason: Protocol Last Admin: 05/20/17 08:51 Dose: 50 mls/hr Levofloxacin/Dextrose (Levaquin 500mg) 500 mg in 100 mls @ 100 mls/hr IVPB QOTHERDAY [facility] Last Admin: 05/20/17 12:26 Dose: 100 mls/hr Iron Sucrose 100 mg/ Sodium (Chloride) 105 mls @ 105 mls/hr IVPB DAILY [facility] Last Admin: 05/20/17 12:25 Dose: 105 mls/hr Metoprolol Tartrate (Lopressor) 75 mg PO Q8 [facility] Last Admin: 05/20/17 08:49 Dose: 75 mg Sevelamer Carbonate (Renvela) 0.8 gm PO TIDWM [facility] Last Admin: 05/20/17 12:25 Dose: 0.8 gm Vitamin B Complex/Vit C/Folic Acid (Nephro-Gregorio) 1 tab PO DAILY [facility] Last Admin: 05/20/17 08:50 Dose: 1 tab - Labs Labs: 05/20/17 05:20 05/20/17 05:20 PT 14.1 Seconds (9.8-13.1) H 05/14/17 22:44 INR 1.2 (0.9-1.2) 05/14/17 22:44 APTT 32.8 Seconds (25.6-37.1) 05/14/17 22:44
[2017-05-21 06:12] LABS: HEMATOCRIT 26.4 % (35.0-51.0); MEAN CELL VOLUME 95.1 fl (80.0-94.0); MEAN CORPUSCULAR HGB CONC 31.6 g/dL (33.0-37.0); WHITE BLOOD COUNT 7.2 K/uL (4.8-10.8)
[2017-05-21 06:41] LABS: CALCIUM 6.9 mg/dL (8.4-10.2); POTASSIUM 4.8 MMOL/L (3.6-5.0)
[2017-05-21] MEDS ORDERED: Lidocaine 1% Inj (20ml) ONE (08:20)
[2017-05-21] MEDS ORDERED: ceFAZolin IV 1 gm in Dextrose 0 GM/0 ML BAG IVPB ONE (08:20)
[2017-05-21] MEDS: Sevelamer Carb 0.8 gm/Packet PO SCH ×5 (08:26→16:27)
[2017-05-21] MEDS: Multivitamin Vitamin B Complex (Nephro-Vite) Tab PO SCH ×2 (08:26→11:41)
[2017-05-21] MEDS ORDERED: Lactated Ringer's 500 ML IV ONE (08:30)
[2017-05-21] MEDS ORDERED: Midazolam 2 MG/2 ML VIAL ONE (08:39)
[2017-05-21] MEDS ORDERED: Aztreonam 500 mg Inj IM ONE (08:40)
[2017-05-21] MEDS ORDERED: Lidocaine 1% Inj (20ml) IJ ONE ×2 (09:00)
[2017-05-21] MEDS ORDERED: Sodium Chloride 0.9% 500 ML IV ONE (09:40)
--- NOTE | 2017-05-21 09:53 | PCM.SURG1 ---
Surgeon's Initial Post Op Note - Surgeon's Notes Surgeon: Dr. Soto Contact Lens Polisher: PGY1 Pre-Operative Diagnosis: End stage renal disease on Hemodialysis Operative Findings: see op note Post-Operative Diagnosis: as above Operation Performed: Right IJ permacath placement (tunneled hemodialysis catheter) Specimen/Specimens Removed: none Estimated Blood Loss: EBL {In ML}: 5 Drains Used: No Drains Post-Op Condition: Good Date of Surgery/Procedure: 05/21/17 Time of Surgery/Procedure: 08:35
--- NOTE | 2017-05-21 10:16 | RAD ---
PROCEDURE: CHEST RADIOGRAPH, 1 VIEW HISTORY: Rule out pneumonia COMPARISON: Chest dated 05/17/2017. FINDINGS: In situ right IJ dialysis catheter with tip in the SVC/RA junction. LUNGS: Poor inspiration with low lung volumes, crowded bronchovascular markings and mild bibasilar atelectasis right greater than left. Developing lower lobe infiltrate could be excluded with followup radiographs. PLEURA: No pneumothorax or pleural fluid seen. CARDIOVASCULAR: Heart is enlarged. OSSEOUS STRUCTURES: No significant abnormalities. VISUALIZED UPPER ABDOMEN: Normal. OTHER FINDINGS: None. IMPRESSION: Poor inspiration with low lung volumes, crowded bronchovascular markings and mild bibasilar atelectasis right greater than left. Developing lower lobe infiltrate could be excluded with followup radiographs.
--- NOTE | 2017-05-21 10:49 | CP.PCM.PN ---
Subjective - Date & Time of Evaluation Date of Evaluation: 05/21/17 Time of Evaluation: 10:45 - Subjective Subjective: Pt seen post op in his room s/p Right IJ Permacath placement Denies pain no CP, no SOB Plan for hemodialysis today Objective - Vital Signs/Intake and Output Vital Signs (last 24 hours): Temp Pulse Resp BP Pulse Ox 97.2 F L 64 18 136/80 98 05/21/17 09:55 05/21/17 09:55 05/21/17 09:55 05/21/17 09:55 05/21/17 09:55 Intake and Output: 05/21/17 05/21/17 06:59 18:59 Intake Total 100 100 Balance 100 100 - Medications Medications: Current Medications Acetaminophen (Tylenol 325mg Tab) 650 mg PO Q4 PRN PRN Reason: Fever >100.4 F Last Admin: 05/15/17 18:55 Dose: 650 mg Albuterol/Ipratropium (Duoneb 3 Mg/0.5 Mg (3 Ml) Ud) 3 ml INH RQ4 PRN PRN Reason: Shortness of Breath Amlodipine Besylate (Norvasc) 5 mg PO Q12 [facility] Last Admin: 05/21/17 08:26 Dose: Not Given Ascorbic Acid (Vitamin C 500 Mg Tab) 500 mg PO DAILY [facility] Last Admin: 05/21/17 08:24 Dose: Not Given Atorvastatin Calcium (Lipitor) 10 mg PO DAILY [facility] Last Admin: 05/21/17 08:26 Dose: Not Given Calcium Acetate (Phoslo) 1,334 mg PO WM [facility] Last Admin: 05/21/17 08:26 Dose: Not Given Cholecalciferol (Vitamin D) 2,000 iu PO DAILY [facility] Last Admin: 05/21/17 08:24 Dose: Not Given Epoetin Deni (Procrit) 4,000 unit SC MWF [facility] Last Admin: 05/19/17 14:13 Dose: 4,000 unit Heparin Sodium (Porcine) (Heparin) 5,000 units SC Q12 [facility] PRN Reason: Protocol Last Admin: 05/20/17 08:50 Dose: 5,000 units Heparin Sodium (Porcine) (Heparin) 2,000 units IVP MWF [facility] PRN Reason: Protocol Stop: 06/17/17 09:01 Last Admin: 05/18/17 10:02 Dose: Not Given Hydromorphone HCl (Dilaudid) 0.5 mg IVP Q5M PRN PRN Reason: Pain, severe (8-10) Stop: 05/21/17 11:43 Aztreonam 500 mg/ Sodium (Chloride) 50 mls @ 50 mls/hr IVPB Q12 [facility] PRN Reason: Protocol Last Admin: 05/20/17 20:52 Dose: 50 mls/hr Levofloxacin/Dextrose (Levaquin 500mg) 500 mg in 100 mls @ 100 mls/hr IVPB QOTHERDAY [facility] Last Admin: 05/20/17 12:26 Dose: 100 mls/hr Iron Sucrose 100 mg/ Sodium (Chloride) 105 mls @ 105 mls/hr IVPB DAILY [facility] Last Admin: 05/20/17 12:25 Dose: 105 mls/hr Metoprolol Tartrate (Lopressor) 75 mg PO Q8 [facility] Last Admin: 05/21/17 08:17 Dose: 75 mg Sevelamer Carbonate (Renvela) 0.8 gm PO TIDWM [facility] Last Admin: 05/21/17 08:26 Dose: Not Given Vitamin B Complex/Vit C/Folic Acid (Nephro-Gregorio) 1 tab PO DAILY [facility] Last Admin: 05/21/17 08:26 Dose: Not Given - Labs Labs: 05/21/17 05:20 05/21/17 05:20 PT 14.1 Seconds (9.8-13.1) H 05/14/17 22:44 INR 1.2 (0.9-1.2) 05/14/17 22:44 APTT 32.8 Seconds (25.6-37.1) 05/14/17 22:44 - Constitutional Appears: Non-toxic, Older Than Stated Age, Chronically Ill - Head Exam Head Exam: NORMAL INSPECTION, NORMOCEPHALIC - Eye Exam Eye Exam: EOMI, PERRL Pupil Exam: NORMAL ACCOMODATION - ENT Exam ENT Exam: Mucous Membranes Dry, Normal External Ear Exam - Neck Exam Neck Exam: Full ROM. absent: Meningismus - Respiratory Exam Respiratory Exam: Rales, Rhonchi, NORMAL BREATHING PATTERN. absent: Respiratory Distress - Cardiovascular Exam Cardiovascular Exam: REGULAR RHYTHM, +S1, +S2 right chest Permacath - GI/Abdominal Exam GI & Abdominal Exam: Soft, Normal Bowel Sounds. absent: Tenderness - Extremities Exam Extremities Exam: Full ROM, Normal Capillary Refill, Pedal Edema. absent: Calf Tenderness left groin HD ( Papi )catheter - Back Exam Back Exam: Full ROM. absent: CVA tenderness (L), CVA tenderness (R) - Neurological Exam Neurological Exam: Alert, Awake, CN II-XII Intact, Oriented x3 Neuro motor strength exam: Left Upper Extremity: 5, Right Upper Extremity: 5, Left Lower Extremity: 5, Right Lower Extremity: 5 - Psychiatric Exam Psychiatric exam: Flat Affect - Skin Skin Exam: Dry, Normal Color, Warm Assessment and Plan - Assessment and Plan (Free Text) Assessment: 56 years old male with hx of HTN, CKD, and urinary retention, came in with 2 days of dizziness when he stands up , fever, chills, nausea, SOB on exertion, and body aches. He has edema to both lower extremities for more than a week. In the ED his Temperature was 101.5F and respiratory rate of 24, with a SpO2 of 92% on RA. CXR : right perihilar airspace dis. Creatinine 10. Emergent Hemodialysis started. Pt was also empirically started on IV antibiotics. 1. Sepsis sec to Pneumonia Pt came with temp of 101.5F; HR of 110; RR of 24 Currently afebrile - consulted Dr Sky- recommend IV Azactam and Levaquin, complete 1 week ( pt allergic to PCN) - given Vanco 1 gram x 1 - Blood c/s: no growth - Consult Dr Pacheco Pulmonary appreciated - duoneb PRN - continue BiPAP q hs 2. Acute on Chronic kidney disease , now ESRD on HD (on 04/02/17 Creatinine was 8.3 and BUN was 62) on admission : 10.6 and 71 - Consulted Dr Castillo Nephrology - HD MWF - started Renagel and Phoslo for Hyperphosphatemia - Dr Soto consulted for Permacath placement- placed this am - will set up outpatient HD 3. Hypocalcemia sec to renal Dis , Hyperphosphatemia - Pt on renagel and Phoslo, increased dose - replaced with Calcium Gluc IV -check ionized calcium 4. Volume Overload sec to Renal dis - emergent dialysis completed - IV Lasix given - Echo severe systolic dysfunction, EF 35%, wall motion abn, mod to severe MR - Cardio conulted - discussed case with Dr Scott- volume overload due to Renal dis rather than CHF 5. Suspected Sleep Apnea discussed with Dr Pacheco - rec outpt Sleep Study - Bipap q hs- Case mgt consulted to check qiu for self pay 6. Anemia of Chronic Kidney disease - cont Venofer and Epogen - Transfused 1unit PRBC with HD 05/19 7. HTN - cont Norvasc, Metoprolol DVT prophylaxis - Heparin
[2017-05-21] MEDS ORDERED: levoFLOXacin 500 mg in D5W 500 MG/100 ML BAG IVPB SCH (11:30)
--- NOTE | 2017-05-21 13:09 | RAD ---
PROCEDURE: Intraoperative Fluoroscopy. HISTORY: PERM CATH INSERT FINDINGS: Fluoroscopic assistance was provided. 85.1 seconds fluoroscopy time utilized during this procedure. Radiation dose = 11.3 mGy. Please refer to operative report for additional details.
[2017-05-21] MEDS: Epoetin Alfa 4000 UNIT/ML Inj SC SCH (16:27)
--- NOTE | 2017-05-21 18:10 | CP.PCM.PN ---
Subjective - Date & Time of Evaluation Date of Evaluation: 05/21/17 Time of Evaluation: 18:10 Objective - Vital Signs/Intake and Output Vital Signs (last 24 hours): Temp Pulse Resp BP Pulse Ox 98.1 F 72 20 148/86 97 05/21/17 15:59 05/21/17 15:59 05/21/17 15:59 05/21/17 15:59 05/21/17 15:59 Intake and Output: 05/21/17 05/21/17 06:59 18:59 Intake Total 100 100 Balance 100 100 - Medications Medications: Current Medications Acetaminophen (Tylenol 325mg Tab) 650 mg PO Q4 PRN PRN Reason: Fever >100.4 F Last Admin: 05/15/17 18:55 Dose: 650 mg Albuterol/Ipratropium (Duoneb 3 Mg/0.5 Mg (3 Ml) Ud) 3 ml INH RQ4 PRN PRN Reason: Shortness of Breath Amlodipine Besylate (Norvasc) 5 mg PO Q12 [facility] Last Admin: 05/21/17 11:43 Dose: 5 mg Ascorbic Acid (Vitamin C 500 Mg Tab) 500 mg PO DAILY [facility] Last Admin: 05/21/17 11:41 Dose: 500 mg Atorvastatin Calcium (Lipitor) 10 mg PO DAILY [facility] Last Admin: 05/21/17 11:42 Dose: 10 mg Calcium Acetate (Phoslo) 1,334 mg PO WM [facility] Last Admin: 05/21/17 11:50 Dose: 1,334 mg Cholecalciferol (Vitamin D) 2,000 iu PO DAILY [facility] Last Admin: 05/21/17 11:43 Dose: 2,000 iu Epoetin Deni (Procrit) 4,000 unit SC [facility] Last Admin: 05/21/17 16:27 Dose: 4,000 unit Heparin Sodium (Porcine) (Heparin) 5,000 units SC Q12 [facility] PRN Reason: Protocol Last Admin: 05/20/17 08:50 Dose: 5,000 units Heparin Sodium (Porcine) (Heparin) 2,000 units IVP MWF [facility] PRN Reason: Protocol Stop: 06/17/17 09:01 Last Admin: 05/18/17 10:02 Dose: Not Given Aztreonam 500 mg/ Sodium (Chloride) 50 mls @ 50 mls/hr IVPB Q12 [facility] PRN Reason: Protocol Last Admin: 05/21/17 11:38 Dose: Not Given Iron Sucrose 100 mg/ Sodium (Chloride) 105 mls @ 105 mls/hr IVPB DAILY [facility] Last Admin: 05/21/17 16:26 Dose: 105 mls/hr Levofloxacin/Dextrose (Levaquin 500mg) 500 mg in 100 mls @ 100 mls/hr IVPB MWF [facility] Last Admin: 05/21/17 16:28 Dose: 100 mls/hr Metoprolol Tartrate (Lopressor) 75 mg PO Q8 [facility] Last Admin: 05/21/17 16:27 Dose: Not Given Sevelamer Carbonate (Renvela) 0.8 gm PO TIDWM [facility] Last Admin: 05/21/17 16:27 Dose: 0.8 gm Vitamin B Complex/Vit C/Folic Acid (Nephro-Gregorio) 1 tab PO DAILY [facility] Last Admin: 05/21/17 11:41 Dose: 1 tab - Labs Labs: 05/21/17 05:20 05/21/17 05:20 PT 14.1 Seconds (9.8-13.1) H 05/14/17 22:44 INR 1.2 (0.9-1.2) 05/14/17 22:44 APTT 32.8 Seconds (25.6-37.1) 05/14/17 22:44 Assessment and Plan (1) Volume overload Status: Acute (2) Pulmonary edema Status: Acute (3) Acute kidney injury superimposed on chronic kidney disease Status: Acute (4) Anemia of chronic disease Status: Acute (5) Sepsis Status: Acute (6) Acute combined systolic and diastolic congestive heart failure Status: Acute - Assessment and Plan (Free Text) Plan: PT STABLE POST AV FISTULA SURGERY. ON HD CURRENTLY AND SCHEDULED TO TAKE OFF 1.5L VOLUME. NO RIGORS. NO FEVERS. CHEST CLEAR. HR AND BP STABLE.
--- NOTE | 2017-05-21 20:05 | CP.PCM.PN ---
Subjective - Date & Time of Evaluation Date of Evaluation: 05/21/17 Time of Evaluation: 15:00 - Subjective Subjective: SEEN ON RENAL F/U SEEN ON HD S/P TUNNELLED HD CATH FEELS MUCH BETTER WE NEED AVH AND AN OUT PT HD SPOT C/O CURRENT CARE Objective - Vital Signs/Intake and Output Vital Signs (last 24 hours): Temp Pulse Resp BP Pulse Ox 98.1 F 72 20 148/86 97 05/21/17 15:59 05/21/17 15:59 05/21/17 15:59 05/21/17 15:59 05/21/17 15:59 Intake and Output: 05/21/17 05/22/17 18:59 06:59 Intake Total 100 Balance 100 - Medications Medications: Current Medications Acetaminophen (Tylenol 325mg Tab) 650 mg PO Q4 PRN PRN Reason: Fever >100.4 F Last Admin: 05/15/17 18:55 Dose: 650 mg Albuterol/Ipratropium (Duoneb 3 Mg/0.5 Mg (3 Ml) Ud) 3 ml INH RQ4 PRN PRN Reason: Shortness of Breath Amlodipine Besylate (Norvasc) 5 mg PO Q12 [facility] Last Admin: 05/21/17 11:43 Dose: 5 mg Ascorbic Acid (Vitamin C 500 Mg Tab) 500 mg PO DAILY [facility] Last Admin: 05/21/17 11:41 Dose: 500 mg Atorvastatin Calcium (Lipitor) 10 mg PO DAILY [facility] Last Admin: 05/21/17 11:42 Dose: 10 mg Calcium Acetate (Phoslo) 1,334 mg PO WM [facility] Last Admin: 05/21/17 18:38 Dose: 1,334 mg Cholecalciferol (Vitamin D) 2,000 iu PO DAILY [facility] Last Admin: 05/21/17 11:43 Dose: 2,000 iu Epoetin Deni (Procrit) 4,000 unit SC MWF [facility] Last Admin: 05/21/17 16:27 Dose: 4,000 unit Heparin Sodium (Porcine) (Heparin) 5,000 units SC Q12 [facility] PRN Reason: Protocol Last Admin: 05/20/17 08:50 Dose: 5,000 units Heparin Sodium (Porcine) (Heparin) 2,000 units IVP MWF [facility] PRN Reason: Protocol Stop: 06/17/17 09:01 Last Admin: 05/18/17 10:02 Dose: Not Given Aztreonam 500 mg/ Sodium (Chloride) 50 mls @ 50 mls/hr IVPB Q12 [facility] PRN Reason: Protocol Last Admin: 05/21/17 11:38 Dose: Not Given Iron Sucrose 100 mg/ Sodium (Chloride) 105 mls @ 105 mls/hr IVPB DAILY [facility] Last Admin: 05/21/17 16:26 Dose: 105 mls/hr Levofloxacin/Dextrose (Levaquin 500mg) 500 mg in 100 mls @ 100 mls/hr IVPB MWF [facility] Last Admin: 05/21/17 16:28 Dose: 100 mls/hr Metoprolol Tartrate (Lopressor) 75 mg PO Q8 [facility] Last Admin: 05/21/17 16:27 Dose: Not Given Sevelamer Carbonate (Renvela) 0.8 gm PO TIDWM [facility] Last Admin: 05/21/17 16:27 Dose: 0.8 gm Vitamin B Complex/Vit C/Folic Acid (Nephro-Gregorio) 1 tab PO DAILY [facility] Last Admin: 05/21/17 11:41 Dose: 1 tab - Labs Labs: 05/21/17 05:20 05/21/17 05:20 PT 14.1 Seconds (9.8-13.1) H 05/14/17 22:44 INR 1.2 (0.9-1.2) 05/14/17 22:44 APTT 32.8 Seconds (25.6-37.1) 05/14/17 22:44
--- NOTE | 2017-05-22 08:28 | CP.PCM.PN ---
Subjective - Date & Time of Evaluation Date of Evaluation: 05/22/17 Time of Evaluation: 06:30 - Subjective Subjective: Vascular Surgery- Dr. Soto Pt S&E at bedside this AM. No acute events overnight. Patient received dialysis yesterday through the permacath. Left femoral shiley removed w/ no complications. Patient tolerating current diet. Denies fevers, chills, chest pain, shortness of breath, nausea, vomiting. Objective - Vital Signs/Intake and Output Vital Signs (last 24 hours): Temp Pulse Resp BP Pulse Ox 97.9 F 77 20 151/87 H 97 05/22/17 07:33 05/22/17 07:33 05/22/17 07:33 05/22/17 07:33 05/22/17 07:33 Intake and Output: 05/22/17 05/22/17 06:59 18:59 Intake Total 100 Balance 100 - Medications Medications: Current Medications Acetaminophen (Tylenol 325mg Tab) 650 mg PO Q4 PRN PRN Reason: Fever >100.4 F Last Admin: 05/15/17 18:55 Dose: 650 mg Albuterol/Ipratropium (Duoneb 3 Mg/0.5 Mg (3 Ml) Ud) 3 ml INH RQ4 PRN PRN Reason: Shortness of Breath Amlodipine Besylate (Norvasc) 5 mg PO Q12 [facility] Last Admin: 05/21/17 21:50 Dose: 5 mg Ascorbic Acid (Vitamin C 500 Mg Tab) 500 mg PO DAILY [facility] Last Admin: 05/21/17 11:41 Dose: 500 mg Atorvastatin Calcium (Lipitor) 10 mg PO DAILY [facility] Last Admin: 05/21/17 11:42 Dose: 10 mg Calcium Acetate (Phoslo) 1,334 mg PO WM [facility] Last Admin: 05/21/17 18:38 Dose: 1,334 mg Cholecalciferol (Vitamin D) 2,000 iu PO DAILY [facility] Last Admin: 05/21/17 11:43 Dose: 2,000 iu Epoetin Deni (Procrit) 4,000 unit SC MWF [facility] Last Admin: 05/21/17 16:27 Dose: 4,000 unit Heparin Sodium (Porcine) (Heparin) 5,000 units SC Q12 [facility] PRN Reason: Protocol Last Admin: 05/21/17 21:51 Dose: 5,000 units Heparin Sodium (Porcine) (Heparin) 2,000 units IVP [facility] PRN Reason: Protocol Stop: 06/17/17 09:01 Last Admin: 05/18/17 10:02 Dose: Not Given Aztreonam 500 mg/ Sodium (Chloride) 50 mls @ 50 mls/hr IVPB Q12 [facility] PRN Reason: Protocol Last Admin: 05/21/17 22:06 Dose: 50 mls/hr Iron Sucrose 100 mg/ Sodium (Chloride) 105 mls @ 105 mls/hr IVPB DAILY [facility] Last Admin: 05/21/17 16:26 Dose: 105 mls/hr Levofloxacin/Dextrose (Levaquin 500mg) 500 mg in 100 mls @ 100 mls/hr IVPB [facility] Last Admin: 05/21/17 16:28 Dose: 100 mls/hr Metoprolol Tartrate (Lopressor) 75 mg PO Q8 [facility] Last Admin: 05/22/17 00:55 Dose: 75 mg Sevelamer Carbonate (Renvela) 0.8 gm PO TIDWM [facility] Last Admin: 05/21/17 16:27 Dose: 0.8 gm Vitamin B Complex/Vit C/Folic Acid (Nephro-Gregorio) 1 tab PO DAILY [facility] Last Admin: 05/21/17 11:41 Dose: 1 tab - Labs Labs: 05/21/17 05:20 05/21/17 05:20 PT 14.1 Seconds (9.8-13.1) H 05/14/17 22:44 INR 1.2 (0.9-1.2) 05/14/17 22:44 APTT 32.8 Seconds (25.6-37.1) 05/14/17 22:44 - Constitutional Appears: Non-toxic, No Acute Distress - Eye Exam Eye Exam: EOMI. absent: Scleral icterus - ENT Exam ENT Exam: Mucous Membranes Moist - Respiratory Exam Respiratory Exam: NORMAL BREATHING PATTERN. absent: Accessory Muscle Use, Respiratory Distress - Cardiovascular Exam Cardiovascular Exam: +S1, +S2. absent: Bradycardia, Tachycardia - GI/Abdominal Exam GI & Abdominal Exam: Soft. absent: Distended, Firm, Guarding, Rigid, Tenderness , Rebound - Extremities Exam Extremities Exam: Normal Inspection. absent: Calf Tenderness Additional comments: Left shiley catheter out. Pressure held for > 5 min. pressure dressing applied - Neurological Exam Neurological Exam: Alert, Awake, Oriented x3 - Psychiatric Exam Psychiatric exam: Normal Affect - Skin Skin Exam: Intact, Warm Assessment and Plan - Assessment and Plan (Free Text) Assessment: 56M w/ ESRD RIJ permacath placed POD #1 Plan: - cleared for discharge from surgery perspective - plan to follow up as an outpatient for fistula formation - cleared to use RIJ permacath for dialysis - discussed w/ Dr. Charles Bueno PGY1
[2017-05-22] MEDS: Sevelamer Carb 0.8 gm/Packet PO SCH ×3 (09:18→17:23)
[2017-05-22] MEDS: Multivitamin Vitamin B Complex (Nephro-Vite) Tab PO SCH (09:18)
--- NOTE | 2017-05-22 09:40 | CP.PCM.PN ---
Subjective - Date & Time of Evaluation Date of Evaluation: 05/22/17 Time of Evaluation: 10:00 - Subjective Subjective: Patient seen and examined bedside. Feeling better. Denies any SOB. Hemodynamically stable, afebrile. Received HD yesterday No acute issues overnight Objective - Vital Signs/Intake and Output Vital Signs (last 24 hours): Temp Pulse Resp BP Pulse Ox 97.9 F 77 20 151/87 H 97 05/22/17 07:33 05/22/17 07:33 05/22/17 07:33 05/22/17 07:33 05/22/17 07:33 Intake and Output: 05/22/17 05/22/17 06:59 18:59 Intake Total 100 Balance 100 - Medications Medications: Current Medications Acetaminophen (Tylenol 325mg Tab) 650 mg PO Q4 PRN PRN Reason: Fever >100.4 F Last Admin: 05/15/17 18:55 Dose: 650 mg Albuterol/Ipratropium (Duoneb 3 Mg/0.5 Mg (3 Ml) Ud) 3 ml INH RQ4 PRN PRN Reason: Shortness of Breath Amlodipine Besylate (Norvasc) 5 mg PO Q12 [facility] Last Admin: 05/22/17 09:17 Dose: 5 mg Ascorbic Acid (Vitamin C 500 Mg Tab) 500 mg PO DAILY [facility] Last Admin: 05/22/17 09:18 Dose: 500 mg Atorvastatin Calcium (Lipitor) 10 mg PO DAILY [facility] Last Admin: 05/22/17 09:19 Dose: 10 mg Calcium Acetate (Phoslo) 1,334 mg PO WM [facility] Last Admin: 05/22/17 09:17 Dose: 1,334 mg Cholecalciferol (Vitamin D) 2,000 iu PO DAILY [facility] Last Admin: 05/22/17 09:18 Dose: 2,000 iu Epoetin Deni (Procrit) 4,000 unit SC MWF [facility] Last Admin: 05/21/17 16:27 Dose: 4,000 unit Heparin Sodium (Porcine) (Heparin) 5,000 units SC Q12 [facility] PRN Reason: Protocol Last Admin: 05/22/17 09:16 Dose: 5,000 units Heparin Sodium (Porcine) (Heparin) 2,000 units IVP MWF [facility] PRN Reason: Protocol Stop: 06/17/17 09:01 Last Admin: 05/18/17 10:02 Dose: Not Given Iron Sucrose 100 mg/ Sodium (Chloride) 105 mls @ 105 mls/hr IVPB DAILY [facility] Last Admin: 05/21/17 16:26 Dose: 105 mls/hr Metoprolol Tartrate (Lopressor) 75 mg PO Q8 [facility] Last Admin: 05/22/17 09:17 Dose: 75 mg Sevelamer Carbonate (Renvela) 0.8 gm PO TIDWM [facility] Last Admin: 05/22/17 09:18 Dose: 0.8 gm Vitamin B Complex/Vit C/Folic Acid (Nephro-Gregorio) 1 tab PO DAILY [facility] Last Admin: 05/22/17 09:18 Dose: 1 tab - Labs Labs: 05/21/17 05:20 05/21/17 05:20 PT 14.1 Seconds (9.8-13.1) H 05/14/17 22:44 INR 1.2 (0.9-1.2) 05/14/17 22:44 APTT 32.8 Seconds (25.6-37.1) 05/14/17 22:44 - Constitutional Appears: Non-toxic, No Acute Distress, Other (overweight) - Head Exam Head Exam: ATRAUMATIC, NORMAL INSPECTION, NORMOCEPHALIC - Eye Exam Eye Exam: EOMI, Normal appearance, PERRL Pupil Exam: NORMAL ACCOMODATION - ENT Exam ENT Exam: Mucous Membranes Moist, Normal Exam - Neck Exam Neck Exam: Full ROM, Normal Inspection - Respiratory Exam Respiratory Exam: Clear to Ausculation Bilateral, NORMAL BREATHING PATTERN. absent: Rales, Rhonchi, Wheezes - Cardiovascular Exam Cardiovascular Exam: REGULAR RHYTHM, RRR, +S1, +S2. absent: JVD - GI/Abdominal Exam GI & Abdominal Exam: Soft, Normal Bowel Sounds. absent: Distended, Guarding, Tenderness, Rebound - Rectal Exam Rectal Exam: Deferred - Extremities Exam Extremities Exam: Full ROM, Normal Capillary Refill, Normal Inspection. absent : Calf Tenderness, Pedal Edema - Back Exam Back Exam: NORMAL INSPECTION - Neurological Exam Neurological Exam: Alert, Awake, CN II-XII Intact, Oriented x3 - Psychiatric Exam Psychiatric exam: Normal Affect, Normal Mood - Skin Skin Exam: Dry, Intact, Normal Color, Warm Assessment and Plan - Assessment and Plan (Free Text) Assessment: 56 years old male with hx of HTN, CKD, and urinary retention, came in with 2 days of dizziness when he stands up , fever, chills, nausea, SOB on exertion, and body aches. He had edema to both lower extremities for more than a week. In the ED his Temperature was 101.5F and respiratory rate of 24, with a SpO2 of 92% on RA. CXR showed right perihilar airspace disease. Creatinine 10. Emergent Hemodialysis started. Pt was also empirically started on IV antibiotics for sepsis secondary to Pneumonia. At present patient clinically improved , waiting for discharge arrangements for HD 1. Sepsis sec to Pneumonia Pt came with temp of 101.5F; HR of 110; RR of [address] Sky- recommend IV Azactam and Levaquin for 1 week ( pt allergic to PCN). Will d/c antibiotics today Blood c/s: no growth Consult Dr Pacheco Pulmonary appreciated duoneb PRN continue BiPAP at night for sleep apnea 2. Acute on Chronic kidney disease , now ESRD on HD (on 04/02/17 Creatinine was 8.3 and BUN was 62) on admission : 10.[address] Castillo Nephrology continue HD MWF on Renagel and Phoslo for Hyperphosphatemia Permacath placed by vascular surgeon Dr Soto waiting for SW to set up outpatient HD 3. Hypocalcemia sec to renal Dis , Hyperphosphatemia, secondary hyperthyroidism Pt on renagel and Phoslo replaced with Calcium Gluc IV 4. Volume Overload sec to Renal dis continue HD as scheduled Echo severe systolic dysfunction, EF 35%, wall motion abn, mod to severe MR Cardio consulted - discussed case with Dr Hernandez- volume overload due to Renal dis rather than CHF 5. Suspected Sleep Apnea discussed with Dr Pacheco - rec outpt Sleep Study Bipap q hs Case mgt consulted to check qiu for self pay 6. Anemia of Chronic Kidney disease cont Venofer # 5 today and Epogen with HD will change to Po ferrous sulfate Transfused 1unit PRBC with HD 05/19 7. HTN cont Norvasc, Metoprolol 8.CHF systolic dysfunction , compensated EF 35% cardiology consulted 9.DVT prophylaxis Heparin
--- NOTE | 2017-05-22 10:08 | CP.PCM.PN ---
Subjective - Date & Time of Evaluation Date of Evaluation: 05/22/17 Time of Evaluation: 10:08 - Subjective Subjective: NO CHEST PAINS/SOB CONTINUES TO CLINICALLY IMPROVE LUNGS-CLEAR WILL CONTINUE NIGHT TIME BIPAP FOR SLEEP APNEA Objective - Vital Signs/Intake and Output Vital Signs (last 24 hours): Temp Pulse Resp BP Pulse Ox 97.9 F 77 20 151/87 H 97 05/22/17 07:33 05/22/17 07:33 05/22/17 07:33 05/22/17 07:33 05/22/17 07:33 Intake and Output: 05/22/17 05/22/17 06:59 18:59 Intake Total 100 Balance 100 - Medications Medications: Current Medications Acetaminophen (Tylenol 325mg Tab) 650 mg PO Q4 PRN PRN Reason: Fever >100.4 F Last Admin: 05/15/17 18:55 Dose: 650 mg Albuterol/Ipratropium (Duoneb 3 Mg/0.5 Mg (3 Ml) Ud) 3 ml INH RQ4 PRN PRN Reason: Shortness of Breath Amlodipine Besylate (Norvasc) 5 mg PO Q12 [facility] Last Admin: 05/22/17 09:17 Dose: 5 mg Ascorbic Acid (Vitamin C 500 Mg Tab) 500 mg PO DAILY [facility] Last Admin: 05/22/17 09:18 Dose: 500 mg Atorvastatin Calcium (Lipitor) 10 mg PO DAILY [facility] Last Admin: 05/22/17 09:19 Dose: 10 mg Calcium Acetate (Phoslo) 1,334 mg PO WM [facility] Last Admin: 05/22/17 09:17 Dose: 1,334 mg Cholecalciferol (Vitamin D) 2,000 iu PO DAILY [facility] Last Admin: 05/22/17 09:18 Dose: 2,000 iu Epoetin Deni (Procrit) 4,000 unit SC MWF [facility] Last Admin: 05/21/17 16:27 Dose: 4,000 unit Heparin Sodium (Porcine) (Heparin) 5,000 units SC Q12 [facility] PRN Reason: Protocol Last Admin: 05/22/17 09:16 Dose: 5,000 units Heparin Sodium (Porcine) (Heparin) 2,000 units IVP MWF [facility] PRN Reason: Protocol Stop: 06/17/17 09:01 Last Admin: 05/18/17 10:02 Dose: Not Given Iron Sucrose 100 mg/ Sodium (Chloride) 105 mls @ 105 mls/hr IVPB DAILY [facility] Last Admin: 05/21/17 16:26 Dose: 105 mls/hr Metoprolol Tartrate (Lopressor) 75 mg PO Q8 [facility] Last Admin: 05/22/17 09:17 Dose: 75 mg Sevelamer Carbonate (Renvela) 0.8 gm PO TIDWM [facility] Last Admin: 05/22/17 09:18 Dose: 0.8 gm Vitamin B Complex/Vit C/Folic Acid (Nephro-Gregorio) 1 tab PO DAILY [facility] Last Admin: 05/22/17 09:18 Dose: 1 tab - Labs Labs: 05/21/17 05:20 05/21/17 05:20 PT 14.1 Seconds (9.8-13.1) H 05/14/17 22:44 INR 1.2 (0.9-1.2) 05/14/17 22:44 APTT 32.8 Seconds (25.6-37.1) 05/14/17 22:44
--- NOTE | 2017-05-22 20:29 | CP.PCM.PN ---
Subjective - Date & Time of Evaluation Date of Evaluation: 05/22/17 Time of Evaluation: 14:00 - Subjective Subjective: SEEN ON RENAL F/U ON HD W F C/O CURRENT CARE Objective - Vital Signs/Intake and Output Vital Signs (last 24 hours): Temp Pulse Resp BP Pulse Ox 98.5 F 86 18 134/80 99 05/22/17 15:52 05/22/17 15:52 05/22/17 15:52 05/22/17 15:52 05/22/17 15:52 Intake and Output: 05/22/17 05/23/17 18:59 06:59 Intake Total 200 Balance 200 - Medications Medications: Current Medications Acetaminophen (Tylenol 325mg Tab) 650 mg PO Q4 PRN PRN Reason: Fever >100.4 F Last Admin: 05/15/17 18:55 Dose: 650 mg Albuterol/Ipratropium (Duoneb 3 Mg/0.5 Mg (3 Ml) Ud) 3 ml INH RQ4 PRN PRN Reason: Shortness of Breath Amlodipine Besylate (Norvasc) 5 mg PO Q12 [facility] Last Admin: 05/22/17 09:17 Dose: 5 mg Ascorbic Acid (Vitamin C 500 Mg Tab) 500 mg PO DAILY [facility] Last Admin: 05/22/17 09:18 Dose: 500 mg Atorvastatin Calcium (Lipitor) 10 mg PO DAILY [facility] Last Admin: 05/22/17 09:19 Dose: 10 mg Calcium Acetate (Phoslo) 1,334 mg PO WM [facility] Last Admin: 05/22/17 17:31 Dose: 1,334 mg Cholecalciferol (Vitamin D) 2,000 iu PO DAILY [facility] Last Admin: 05/22/17 09:18 Dose: 2,000 iu Epoetin Deni (Procrit) 4,000 unit SC MWF [facility] Last Admin: 05/21/17 16:27 Dose: 4,000 unit Heparin Sodium (Porcine) (Heparin) 5,000 units SC Q12 [facility] PRN Reason: Protocol Last Admin: 05/22/17 09:16 Dose: 5,000 units Heparin Sodium (Porcine) (Heparin) 2,000 units IVP MWF [facility] PRN Reason: Protocol Stop: 06/17/17 09:01 Last Admin: 05/18/17 10:02 Dose: Not Given Iron Sucrose 100 mg/ Sodium (Chloride) 105 mls @ 105 mls/hr IVPB DAILY [facility] Last Admin: 05/22/17 10:29 Dose: 105 mls/hr Metoprolol Tartrate (Lopressor) 75 mg PO Q8 [facility] Last Admin: 05/22/17 17:23 Dose: 75 mg Sevelamer Carbonate (Renvela) 0.8 gm PO TIDWM [facility] Last Admin: 05/22/17 17:23 Dose: 0.8 gm Vitamin B Complex/Vit C/Folic Acid (Nephro-Gregorio) 1 tab PO DAILY [facility] Last Admin: 05/22/17 09:18 Dose: 1 tab - Labs Labs: 05/21/17 05:20 05/21/17 05:20 PT 14.1 Seconds (9.8-13.1) H 05/14/17 22:44 INR 1.2 (0.9-1.2) 05/14/17 22:44 APTT 32.8 Seconds (25.6-37.1) 05/14/17 22:44
[2017-05-23 06:01] LABS: HEMATOCRIT 27.1 % (35.0-51.0); MEAN CELL VOLUME 95.4 fl (80.0-94.0); MEAN CORPUSCULAR HEMOGLOBIN 30.2 pg (27.0-31.0); MEAN CORPUSCULAR HGB CONC 31.7 g/dL (33.0-37.0); RED CELL DISTRIBUTION WIDTH 15.4 % (11.5-14.5); WHITE BLOOD COUNT 7.6 K/uL (4.8-10.8)
[2017-05-23 07:28] VITALS: BP 125/78; PULSE 70; RESP 18; TEMP 97.6; O2SAT 100
--- NOTE | 2017-05-23 09:06 | CP.PCM.DIS ---
Provider - Provider Date of Admission: 05/14/17 23:27 Attending physician: Gerald Erwin Consults: Nephrology : Dr Castillo GI : Dr Reagan Cardio : Dr Mary Fleming Surgery : Dr Soto Infectious Dis: Dr Sky Pulm: Dr Pacheco Time Spent in preparation of Discharge (in minutes): 45 Diagnosis - Discharge Diagnosis (1) Sepsis Status: Acute (2) ESRD (end stage renal disease) on dialysis Status: Acute (3) Bilateral pneumonia Status: Acute (4) Anemia of chronic disease Status: Chronic (5) Volume overload Status: Acute (6) Sleep apnea Status: Acute Hospital Course - Lab Results Lab Results: Micro Results 05/14/17 22:50 Blood Blood Culture - Final NO GROWTH AFTER 5 DAYS 05/14/17 22:50 Blood Gram Stain - Final TEST NOT PERFORMED 05/17/17 07:36 Nose MRSA Culture (Admit) - Final MRSA NOT DETECTED 05/15/17 06:45 Naris MRSA Culture (Admit) - Final MRSA NOT DETECTED 05/15/17 06:45 Urine,Clean Catch Urine Culture - Final No Growth (<1,000 CFU/ML) Most Recent Lab Values WBC 7.6 K/uL (4.8-10.8) 05/23/17 05:15 RBC 2.84 Mil/uL (4.40-5.90) L 05/23/17 05:15 Hgb 8.6 g/dL (12.0-18.0) L 05/23/17 05:15 Hct 27.1 % (35.0-51.0) L 05/23/17 05:15 MCV 95.4 fl (80.0-94.0) H 05/23/17 05:15 MCH 30.2 pg (27.0-31.0) 05/23/17 05:15 MCHC 31.7 g/dL (33.0-37.0) L 05/23/17 05:15 RDW 15.4 % (11.5-14.5) H 05/23/17 05:15 Plt Count 229 K/uL (130-400) 05/23/17 05:15 MPV 8.8 fl (7.2-11.7) 05/17/17 04:30 Neut % (Auto) 72.5 % (50.0-75.0) 05/17/17 04:30 Lymph % (Auto) 15.1 % (20.0-40.0) L 05/17/17 04:30 [place] % (Auto) 8.4 % (0.0-10.0) 05/17/17 04:30 Eos % (Auto) 3.5 % (0.0-4.0) 05/17/17 04:30 Baso % (Auto) 0.5 % (0.0-2.0) 05/17/17 04:30 Neut # 3.9 K/uL (1.8-7.0) 05/17/17 04:30 Lymph # 0.8 K/uL (1.0-4.3) L 05/17/17 04:30 [place] # 0.5 K/uL (0.0-0.8) 05/17/17 04:30 Eos # 0.2 K/uL (0.0-0.7) 05/17/17 04:30 Baso # 0.0 K/uL (0.0-0.2) 05/17/17 04:30 Neutrophils % (Manual) 90 % (42-75) H 05/14/17 22:02 Lymphocytes % (Manual) 6 % (20-50) L 05/14/17 22:02 Monocytes % (Manual) 3 % (0-10) 05/14/17 22:02 Basophils % (Manual) 1 % (0-2) 05/14/17 22:02 Platelet Estimate Normal (NORMAL) 05/14/17 22:02 Hypochromasia (manual) Slight 05/14/17 22:02 Anisocytosis (manual) Slight 05/14/17 22:02 Macrocytosis (manual) Slight 05/14/17 22:02 Ovalocytes Slight 05/14/17 22:02 PT 14.1 Seconds (9.8-13.1) H 05/14/17 22:44 INR 1.2 (0.9-1.2) 05/14/17 22:44 APTT 32.8 Seconds (25.6-37.1) 05/14/17 22:44 pO2 42 mm/Hg (30-55) 05/14/17 22:18 VBG pH 7.34 (7.32-7.43) 05/14/17 22:18 VBG pCO2 39 mmHg (40-60) L 05/14/17 22:18 VBG HCO3 20.9 mmol/L 05/14/17 22:18 VBG Total CO2 22.2 mmol/L (22-28) 05/14/17 22:18 VBG O2 Sat (Calc) 89.9 % (40-65) H 05/14/17 22:18 VBG Base Excess -4.4 mmol/L (0.0-2.0) L 05/14/17 22:18 VBG Potassium 4.9 mmol/L (3.6-5.2) 05/14/17 22:18 Sodium 141.0 mmol/L (132-148) 05/14/17 22:18 Chloride 109.0 mmol/L (98-107) H 05/14/17 22:18 Glucose 114 mg/dL (75-110) H 05/14/17 22:18 Lactate 1.0 mmol/L (0.7-2.1) 05/14/17 22:18 FiO2 21.0 % 05/14/17 22:18 Sodium 140 mmol/l (132-148) 05/21/17 05:20 Potassium 4.8 MMOL/L (3.6-5.0) 05/21/17 05:20 Chloride 104 mmol/L (98-107) 05/21/17 05:20 Carbon Dioxide 27 mmol/L (22-30) 05/21/17 05:20 Anion Gap 14 (10-20) 05/21/17 05:20 BUN 49 mg/dl (9-20) H 05/21/17 05:20 Creatinine 6.8 mg/dl (0.8-1.5) H 05/21/17 05:20 Est GFR ( Amer) 10 05/21/17 05:20 Est GFR (Non-Af Amer) 8 05/21/17 05:20 Random Glucose 91 mg/dL (75-110) 05/21/17 05:20 Calcium 6.9 mg/dL (8.4-10.2) L 05/21/17 05:20 Ionized Calcium 4.2 mg/dL (4.80-5.60) L 05/20/17 12:20 Phosphorus 3.8 mg/dl (2.5-4.5) 05/20/17 12:20 Magnesium 1.6 MG/DL (1.6-2.3) 05/19/17 05:20 Iron 32 ug/dL (49-181) L 05/15/17 04:30 TIBC 233 ug/dL (250-450) L 05/15/17 04:30 % Saturation 14 % (20-55) L 05/15/17 04:30 Total Bilirubin 0.3 mg/dl (0.2-1.3) 05/17/17 04:30 AST 22 U/L (17-59) 05/17/17 04:30 ALT 27 U/L (21-72) 05/17/17 04:30 Alkaline Phosphatase 57 U/L (38-126) 05/17/17 04:30 Troponin I 0.0900 ng/mL (0.00-0.120) 05/14/17 22:44 NT-Pro-B Natriuret Pep 78994 pg/ml (0-900) H 05/20/17 12:20 Total Protein 6.4 G/DL (6.3-8.2) 05/17/17 04:30 Albumin 3.2 g/dL (3.5-5.0) L 05/17/17 04:30 Globulin 3.2 gm/dL (2.2-3.9) 05/17/17 04:30 Albumin/Globulin Ratio 1.0 (1.0-2.1) 05/17/17 04:30 Vitamin B12 383 pg/mL (239-931) 05/15/17 04:30 25-OH Vitamin D Total 20.2 NG/ML (30.0-100.0) L 05/15/17 23:00 Folate 9.2 ng/mL 05/15/17 04:30 PTH Intact Whole Molec 233 pg/mL (14-64) H 05/15/17 23:00 Venous Blood Potassium 4.9 mmol/L (3.6-5.2) 05/14/17 22:18 Urine Color Straw (YELLOW) 05/19/17 13:00 Urine Clarity Clear (Clear) 05/19/17 13:00 Urine pH 6.0 (5.0-8.0) 05/19/17 13:00 Ur Specific [place] 1.008 (1.003-1.030) 05/19/17 13:00 Urine Protein 100 mg/dL (NEGATIVE) 05/19/17 13:00 Urine Glucose (UA) 50 mg/dL (Normal) 05/19/17 13:00 Urine Ketones Negative mg/dL (NEGATIVE) 05/19/17 13:00 Urine Blood Small (NEGATIVE) 05/19/17 13:00 Urine Nitrate Negative (NEGATIVE) 05/19/17 13:00 Urine Bilirubin Negative (NEGATIVE) 05/19/17 13:00 Urine Urobilinogen 0.2-1.0 mg/dL (0.2-1.0) 05/19/17 13:00 Ur Leukocyte Esterase Trace Ariel/uL (Negative) 05/19/17 13:00 Urine RBC (Auto) 1 /hpf (0-3) 05/19/17 13:00 Urine Microscopic WBC 4 /hpf (0-5) 05/19/17 13:00 Ur Squamous Epith Cells < 1 /hpf (0-5) 05/19/17 13:00 Stool Occult Blood Positive (NEGATIVE) H 05/22/17 13:25 Hep Bs Antigen Negative (NEGATIVE) 05/16/17 04:45 Hep Bs Antibody Negative (NEGATIVE) 05/16/17 04:45 Hep B Core IgM Ab Negative (NEGATIVE) 05/16/17 04:45 Hepatitis C Antibody Negative (NEGATIVE) 05/18/17 20:00 HIV 1&2 Antibody Screen Negative (NEGATIVE) 05/15/17 04:30 Influenza Typ A,B (EIA) Negative for flu a/b (NEGATIVE) 05/14/17 22:02 Blood Type A POSITIVE 05/19/17 12:20 Blood Type Confirm A POSITIVE 05/15/17 04:30 Antibody Screen Negative 05/19/17 12:20 Crossmatch See Detail 05/19/17 12:20 BBK History Checked Patient has bt 05/19/17 12:20 - Hospital Course Hospital Course: 56 years old male with hx of HTN, CKD, and urinary retention, came in with 2 days of dizziness when he stands up , fever, chills, nausea, SOB on exertion, and body aches. He has edema to both lower extremities for more than a week. In the ED his Temperature was 101.5F and respiratory rate of 24, with a SpO2 of 92% on RA. CXR : right perihilar airspace dis. Creatinine 10. Emergent Hemodialysis started. Pt was also empirically started on IV antibiotics. 1. Sepsis sec to Pneumonia Pt came with temp of 101.5F; HR of 110; RR of 24 Currently afebrile - consulted Dr Sky- recommend IV Azactam and Levaquin, complete 1 week ( pt allergic to PCN) - given Vanco 1 gram x 1 - Blood c/s: no growth - Consult Dr Pacheco Pulmonary appreciated - duoneb PRN - continue BiPAP q hs 2. Acute on Chronic kidney disease , now ESRD on HD (on 04/02/17 Creatinine was 8.3 and BUN was 62) on admission : 10.6 and 71 - Consulted Dr Castillo Nephrology - HD MWF - started Renagel and Phoslo for Hyperphosphatemia - Dr Soto consulted for Permacath placement- -outpatient HD arranged by [facility] 3. Hypocalcemia sec to renal Dis , Hyperphosphatemia - Pt on renagel and Phoslo, increased dose - replaced with Calcium Gluc IV 4. Volume Overload sec to Renal dis - emergent dialysis completed - IV Lasix given - Echo severe systolic dysfunction, EF 35%, wall motion abn, mod to severe MR - Cardio conulted - discussed case with Dr Scott- volume overload due to Renal dis rather than CHF 5. Suspected Sleep Apnea discussed with Dr Pacheco - rec outpt Sleep Study - Bipap q hs while in the hosp -Case Mgt arranged CPAP for Home use - pt refuses to use CPAP at home despite explanation of importance and consequences 6. Anemia of Chronic Kidney disease - cont Venofer and Epogen - Transfused 1unit PRBC with HD 05/19 - GI consulted - rec outpt Colonoscopy 7. HTN - cont Norvasc, Metoprolol DVT prophylaxis - Heparin Discharge Exam - Head Exam Head Exam: ATRAUMATIC, NORMAL INSPECTION, NORMOCEPHALIC - Eye Exam Eye Exam: EOMI, Normal appearance Pupil Exam: NORMAL ACCOMODATION - ENT Exam ENT Exam: Mucous Membranes Moist, Normal External Ear Exam - Neck Exam Neck exam: Full Rom - Respiratory Exam Respiratory Exam: Rhonchi. absent: Wheezes, Respiratory Distress - Cardiovascular Exam Cardiovascular Exam: REGULAR RHYTHM, +S1, +S2 - GI/Abdominal Exam GI & Abdominal Exam: Normal Bowel Sounds, Soft. absent: Tenderness - Extremities Exam Extremities exam: full ROM, normal capillary refill, pedal pulses present - Back Exam Back exam: FULL ROM. absent: CVA tenderness (L), CVA tenderness (R) - Neurological Exam Neurological exam: Alert, CN II-XII Intact, Normal Gait, Oriented x3, Reflexes Normal - Psychiatric Exam Psychiatric exam: Normal Affect, Normal Mood - Skin Skin Exam: Dry, Normal Color, Warm Discharge Plan - Discharge Medications Prescriptions: amLODIPine [Norvasc] 5 mg PO Q12 #60 tab Atorvastatin [Lipitor] 1 tab PO DAILY #30 tab Calcium Acetate [Phoslo] 1,334 mg PO WM #90 tab Cholecalciferol [Vitamin D 1000 IU] 2,000 iu PO DAILY #30 tab Sevelamer Carbonate [Renvela] 0.8 gm PO TIDWM #90 packet - Follow Up Plan Condition: IMPROVED Disposition: HOME/ ROUTINE Instructions: Hemodialysis (DC), Community Acquired Pneumonia (DC) Additional Instructions: appt [facility] alessia cont TIW Hemodialysis ( MWF) Outpt Colonoscopy- pt to ff up at the GI clinic Outpt Sleep Study Referrals: [facility] [Outside] Tashia Castillo MD [Staff Provider] - Clinical Quality Measures - CQM - Heart Failure Ejection Fraction: Less Than 40 % Left Ventricular Function to be assessed after discharge: Yes CORAL Inhibitor Prescribed: No Contraindication/Reason for not providing: sec to renal dis Beta-Vern Prescribed: Bisoprolol Angiotensin II Receptor Vern Prescribed: No Contraindication/Reason for not providing: CKD AnticoagulationTherapy for Atrial Fibrillation/Atrialflutter: No Contraindication/Reason for not providing: no Afib/flutter Aldosterone Antagonist Prescribed: No Contraindication/Reason for not providing: CKD Hydralazine Nitrate Prescribed: No Contraindication/Reason for not providing: risk of hyotension Implantable Cardioverter Defibrillator Therapy: No Contraindication/Reason for not providing: N/A
[2017-05-23] MEDS: Sevelamer Carb 0.8 gm/Packet PO SCH ×2 (09:22→12:16)
[2017-05-23] MEDS: Epoetin Alfa 4000 UNIT/ML Inj SC SCH (09:23)
[2017-05-23] MEDS: Multivitamin Vitamin B Complex (Nephro-Vite) Tab PO SCH (09:27)
--- NOTE | 2017-05-23 11:41 | CP.PCM.CON ---
<Mart[place] - Last Filed: 05/23/17 12:54> History of Present Illness - History of Present Illness History of Present Illness: PGY4 Initial GI consult Wero Bhatia is a 56M w/ hx of ESRD on HD 2/2 HTN, HL, DM who presented to the ED with SOB, fever. Pt was found to have pneumonia is a actively being treated with antibiotics. Pt does have a history of chronic anemia which is likely attributed to his ESRD. We were consulted for FOBT+ stool. according to the pt, he denies any abd pain, He denies any recent weight loss. He denies any melena, hematemesis, or coffee-ground emesis. As per RN, there are no reports of gross GI bleed. Denies any nausea or vomiting. Denies any GERD like symptoms and dysphagia. He also denies any previous endoscopies and colonoscopy. PMH: HTN, HLD, CKD; Urinary retention PSH; Appendectomy; Cystoscopy SH: No cigarette smoking; No illegal drug use; No Alcohol, Live with family FH: States: Unknown Family Hx Endoscopy Hx: denies ROS: 12-point ROS conducted, neg other than above. Past Patient History - Infectious Disease Hx of Infectious Diseases: None - Past Medical History & Family History Past Medical History?: Yes - Past Social History Smoking Status: Never Smoked Chewing Tobacco Use: No Cigar Use: No Alcohol: None Drugs: Denies Home Situation {Lives}: With Family - CARDIAC Hx Hypertension: Yes - PULMONARY Hx Respiratory Disorders: No - NEUROLOGICAL Hx Neurological Disorder: No - HEENT Hx HEENT Problems: No - RENAL Hx Chronic Kidney Disease: Yes (new onset) - HEMATOLOGICAL/ONCOLOGICAL Hx Blood Disorders: No - INTEGUMENTARY Hx Dermatological Problems: No - MUSCULOSKELETAL/RHEUMATOLOGICAL Hx Musculoskeletal Disorders: No - GASTROINTESTINAL Hx Gastrointestinal Disorders: No - PSYCHIATRIC Hx Substance Use: No - SURGICAL HISTORY Hx Appendectomy: Yes - ANESTHESIA Hx Anesthesia: Yes Hx Anesthesia Reactions: No Meds Home Medications: Home Medication List Medication Instructions Recorded Confirmed Type Acetaminophen [Tylenol 325mg tab] 650 mg PO Q4 PRN tab 05/23/17 Rx Ascorbic Acid [Vitamin C 500 mg 500 mg PO DAILY tab 05/23/17 Rx Tab] Atorvastatin [Lipitor] 1 tab PO DAILY #30 tab 05/23/17 Rx Calcium Acetate [Phoslo] 1,334 mg PO WM #90 tab 05/23/17 Rx Cholecalciferol [Vitamin D 1000 IU] 2,000 iu PO DAILY #30 tab 05/23/17 Rx Epoetin Deni [Procrit] 4,000 unit SC MWF ml 05/23/17 Rx Sevelamer Carbonate [Renvela] 0.8 gm PO TIDWM #90 packet 05/23/17 Rx Vitamin B Complex/Vit C/Folic 1 tab PO DAILY tab 05/23/17 Rx [Nephro-Gregroio] amLODIPine [Norvasc] 5 mg PO Q12 #60 tab 05/23/17 Rx Allergies/Adverse Reactions: Allergies Allergy/AdvReac Type Severity Reaction Status Date / Time Penicillins Allergy RASH Verified 09/14/15 10:55 - Medications Medications: Current Medications Acetaminophen (Tylenol 325mg Tab) 650 mg PO Q4 PRN PRN Reason: Fever >100.4 F Last Admin: 05/15/17 18:55 Dose: 650 mg Albuterol/Ipratropium (Duoneb 3 Mg/0.5 Mg (3 Ml) Ud) 3 ml INH RQ4 PRN PRN Reason: Shortness of Breath Amlodipine Besylate (Norvasc) 5 mg PO Q12 [facility] Last Admin: 05/23/17 09:27 Dose: Not Given Ascorbic Acid (Vitamin C 500 Mg Tab) 500 mg PO DAILY [facility] Last Admin: 05/23/17 09:27 Dose: 500 mg Atorvastatin Calcium (Lipitor) 10 mg PO DAILY [facility] Last Admin: 05/23/17 09:28 Dose: 10 mg Calcium Acetate (Phoslo) 1,334 mg PO WM [facility] Last Admin: 05/23/17 09:27 Dose: 1,334 mg Cholecalciferol (Vitamin D) 2,000 iu PO DAILY [facility] Last Admin: 05/23/17 09:26 Dose: 2,000 iu Epoetin Deni (Procrit) 4,000 unit SC MWF [facility] Last Admin: 05/23/17 09:23 Dose: 4,000 unit Heparin Sodium (Porcine) (Heparin) 5,000 units SC Q12 [facility] PRN Reason: Protocol Last Admin: 05/23/17 09:22 Dose: 5,000 units Heparin Sodium (Porcine) (Heparin) 2,000 units IVP MWF [facility] PRN Reason: Protocol Stop: 06/17/17 09:01 Last Admin: 05/18/17 10:02 Dose: Not Given Iron Sucrose 100 mg/ Sodium (Chloride) 105 mls @ 105 mls/hr IVPB DAILY [facility] Last Admin: 05/23/17 09:22 Dose: 105 mls/hr Metoprolol Tartrate (Lopressor) 75 mg PO Q8 [facility] Last Admin: 05/23/17 09:28 Dose: Not Given Sevelamer Carbonate (Renvela) 0.8 gm PO TIDWM [facility] Last Admin: 05/23/17 09:22 Dose: 0.8 gm Vitamin B Complex/Vit C/Folic Acid (Nephro-Gregorio) 1 tab PO DAILY [facility] Last Admin: 05/23/17 09:27 Dose: 1 tab Physical Exam - Constitutional Appears: No Acute Distress - Head Exam Head Exam: ATRAUMATIC, NORMOCEPHALIC - Eye Exam Eye Exam: Normal appearance - ENT Exam ENT Exam: Mucous Membranes Moist - Respiratory Exam Respiratory Exam: Clear to Auscultation Bilateral, NORMAL BREATHING PATTERN. absent: Rales, Rhonchi, Wheezes, Respiratory Distress - Cardiovascular Exam Cardiovascular Exam: REGULAR RHYTHM, +S1, +S2 - GI/Abdominal Exam GI & Abdominal Exam: Normal Bowel Sounds, Soft. absent: Guarding, Organomegaly , Rebound, Rigid, Tenderness - Extremities Exam Extremities exam: Positive for: pedal edema. Negative for: joint swelling - Neurological Exam Neurological exam: Alert, Oriented x3 - Psychiatric Exam Psychiatric exam: Normal Affect, Normal Mood - Skin Skin Exam: Dry, Intact, Normal Color, Warm Results - Vital Signs Recent Vital Signs: Last Vital Signs Temp 97.6 F 05/23/17 07:27 Pulse 70 05/23/17 07:42 Resp 18 05/23/17 07:27 BP 125/78 05/23/17 07:27 Pulse Ox 100 05/23/17 07:27 - Labs Result Diagrams: 05/23/17 05:15 05/21/17 05:20 Labs: Laboratory Results - last 24 hr 05/22/17 05/23/17 13:25 05:15 WBC 7.6 RBC 2.84 L Hgb 8.6 L Hct 27.1 L MCV 95.4 H MCH 30.2 MCHC 31.7 L RDW 15.4 H Plt Count 229 Stool Occult Blood Positive H Assessment & Plan - Assessment and Plan (Free Text) Assessment: Wero Bhatia is a 56M w/ hx of ESRD on HD 2/2 HTN, HL, DM who presented to the ED with SOB, fever. Pt has a hx of normocytic anemia likely 2/2 ESRD. 1. Normocytic anemia 2. Heme occult positive Plan: -would recommend oupt colonscopy -no active bleeding -no need for any endoscopic procedure -transfuse to keep hgb > 8 -would recommend full iron panel with ferritin -not sure if pt is recieving EPO or procrit from Nephrology -continue PPI -Renal diet as tolerated D/W Dr. Reagan <Quan Reagan MD - Last Filed: 05/23/17 14:11> Meds - Medications Medications: Current Medications Acetaminophen (Tylenol 325mg Tab) 650 mg PO Q4 PRN PRN Reason: Fever >100.4 F Last Admin: 05/15/17 18:55 Dose: 650 mg Albuterol/Ipratropium (Duoneb 3 Mg/0.5 Mg (3 Ml) Ud) 3 ml INH RQ4 PRN PRN Reason: Shortness of Breath Amlodipine Besylate (Norvasc) 5 mg PO Q12 [facility] Last Admin: 05/23/17 09:27 Dose: Not Given Ascorbic Acid (Vitamin C 500 Mg Tab) 500 mg PO DAILY [facility] Last Admin: 05/23/17 09:27 Dose: 500 mg Atorvastatin Calcium (Lipitor) 10 mg PO DAILY [facility] Last Admin: 05/23/17 09:28 Dose: 10 mg Calcium Acetate (Phoslo) 1,334 mg PO WM [facility] Last Admin: 05/23/17 12:16 Dose: 1,334 mg Cholecalciferol (Vitamin D) 2,000 iu PO DAILY [facility] Last Admin: 05/23/17 09:26 Dose: 2,000 iu Epoetin Deni (Procrit) 4,000 unit SC MWF [facility] Last Admin: 05/23/17 09:23 Dose: 4,000 unit Heparin Sodium (Porcine) (Heparin) 5,000 units SC Q12 [facility] PRN Reason: Protocol Last Admin: 05/23/17 09:22 Dose: 5,000 units Heparin Sodium (Porcine) (Heparin) 2,000 units IVP MWF [facility] PRN Reason: Protocol Stop: 06/17/17 09:01 Last Admin: 05/18/17 10:02 Dose: Not Given Iron Sucrose 100 mg/ Sodium (Chloride) 105 mls @ 105 mls/hr IVPB DAILY [facility] Last Admin: 05/23/17 09:22 Dose: 105 mls/hr Metoprolol Tartrate (Lopressor) 75 mg PO Q8 [facility] Last Admin: 05/23/17 09:28 Dose: Not Given Sevelamer Carbonate (Renvela) 0.8 gm PO TIDWM [facility] Last Admin: 05/23/17 12:16 Dose: 0.8 gm Vitamin B Complex/Vit C/Folic Acid (Nephro-Gregorio) 1 tab PO DAILY [facility] Last Admin: 05/23/17 09:27 Dose: 1 tab Results - Vital Signs Recent Vital Signs: Last Vital Signs Temp 97.6 F 05/23/17 07:27 Pulse 70 05/23/17 07:42 Resp 18 05/23/17 07:27 BP 125/78 05/23/17 07:27 Pulse Ox 100 05/23/17 07:27 - Labs Result Diagrams: 05/23/17 05:15 05/21/17 05:20 Labs: Laboratory Results - last 24 hr 05/22/17 05/23/17 13:25 05:15 WBC 7.6 RBC 2.84 L Hgb 8.6 L Hct 27.1 L MCV 95.4 H MCH 30.2 MCHC 31.7 L RDW 15.4 H Plt Count 229 Stool Occult Blood Positive H Attending/Attestation - Attestation I have personally seen and examined this patient.: Yes I have fully participated in the care of the patient.: Yes I have reviewed all pertinent clinical information: Yes Notes (Text): 05/23/17 14:06 Patient seen this am on rounds. This is a 56 yr old M with history of ESRD on HD 2/2 HTN, HL, DM who presented to the ED with SOB and fever treated for pneumonia. GI consulted for occult positive anemia. Anemia likely multi factorial due to renal failure and low erythropoeitin. Patient denies rectal bleeding, melena, hematemesis. No EGD/ colonoscopy in the past which he can get as outpatient. No urgent GI intervention required while inpatient. Thank you for letting us participate in the care of your patient.
== END 2017-05-23 14:57 | disposition home or self-care (01) | DRG 584 ==
LOC: H.ER 20:59 → H.ERHOLD 23:27 → H.ICU/CCU 05-15 01:42 → H.MEDSURG1 05-17 21:04
PROVIDERS: ADMIT Internal Medicine; ATTEND Internal Medicine
PROC: 5A1D70Z Performance of Urinary Filtration, Intermittent, Less than 6 Hours Per Day (ICD-10-PCS; 2017-05-14)
PROC: 06HY33Z Insertion of Infusion Device into Lower Vein, Percutaneous Approach (ICD-10-PCS; principal; 2017-05-15)
PROC: 06HY33Z Insertion of Infusion Device into Lower Vein, Percutaneous Approach (ICD-10-PCS; 2017-05-16)
PROC: 05HM33Z Insertion of Infusion Device into Right Internal Jugular Vein, Percutaneous Approach (ICD-10-PCS; 2017-05-21)
PROC: B5131ZA Fluoroscopy of Right Jugular Veins using Low Osmolar Contrast, Guidance (ICD-10-PCS; 2017-05-21)
DX: A41.9 Sepsis, unspecified organism (principal); N17.9 Acute kidney failure, unspecified; I50.41 Acute combined systolic (congestive) and diastolic (congestive) heart failure; E11.22 Type 2 diabetes mellitus with diabetic chronic kidney disease; I13.2 Hypertensive heart and chronic kidney disease with heart failure and with stage 5 chronic kidney disease, or end stage renal disease; N18.6 End stage renal disease; J98.11 Atelectasis; E05.90 Thyrotoxicosis, unspecified without thyrotoxic crisis or storm; E83.39 Other disorders of phosphorus metabolism; E83.51 Hypocalcemia; E78.5 Hyperlipidemia, unspecified; D63.1 Anemia in chronic kidney disease; G47.33 Obstructive sleep apnea (adult) (pediatric); Z53.9 Procedure and treatment not carried out, unspecified reason; Z79.899 Other long term (current) drug therapy; Z88.0 Allergy status to penicillin; Z90.49 Acquired absence of other specified parts of digestive tract

== ENCOUNTER 2017-07-25 06:06 | Day surgery (SDC) | payer SELFPAY ==
[2017-07-24 15:04] VITALS: BMI 34.7
[2017-07-25] MEDS ORDERED: Lactated Ringer's 1,000 ML IV ONE (07:15)
[2017-07-25 07:17] LABS: MEAN CELL VOLUME 93.8 fl (80.0-94.0); RBC 4.2 Mil/uL (4.40-5.90); RED CELL DISTRIBUTION WIDTH 16.4 % (11.5-14.5); WHITE BLOOD COUNT 7.5 K/uL (4.8-10.8)
[2017-07-25 07:21] LABS: CALCIUM 7.2 mg/dL (8.4-10.2)
[2017-07-25] MEDS ORDERED: Protamine 50mg/5mL Inj IV ONE (07:34)
[2017-07-25] MEDS ORDERED: Vancomycin 1 g Inj ONE (07:35)
[2017-07-25] MEDS ORDERED: Lidocaine 1% Inj (20ml) ONE (07:35)
[2017-07-25] MEDS ORDERED: Bacitracin Ointment 30 GM TUBE ONE (07:35)
[2017-07-25 07:44] LABS: PARTIAL THROMBOPLASTIN TIME 32.1 Seconds (25.6-37.1); PROTHROMBIN TIME 11.2 Seconds (9.8-13.1)
[2017-07-25 07:50] VITALS: RESP 18
[2017-07-25] MEDS ORDERED: Propofol 10 mg/ml Inj (20 ML) ONE (08:12)
[2017-07-25] MEDS ORDERED: Midazolam 2 MG/2 ML VIAL ONE (08:12)
[2017-07-25] MEDS ORDERED: Lidocaine 4% (Laryng-O-Jet) Kit MM ONE (08:16)
--- NOTE | 2017-07-25 08:45 | CP.SDSHP ---
Same Day Surgery H & P - History Proposed Procedure: Right AV fistula Pre-Op Diagnosis: ESRD - Previous Medical/Surgical History Cardiac: Hypertension Pulmonary: Asthma Comments: HTN, HLD, CKD; Urinary retention Previous Surgical History: Appy - Allergies Allergies: Allergies Penicillins Allergy (Verified 07/24/17 15:04) RASH - Physical Exam Vital Signs: Vital Signs 07/25/17 07/25/17 07:48 07:54 Temperature 98.4 F Pulse Rate 80 80 Respiratory 18 Rate Blood Pressure 148/86 O2 Sat by Pulse 98 Oximetry Mental Status: Alert & Oriented x3 Neuro: WNL Heart: WNL Lungs: WNL - {Optional Preform as Required} Abdomen: WNL - Impression Impression: This patient is in good condition for surgical fistula creation Pt. Evaluated Today:Candidate for Anesthesia & Procedure: Yes - Date & Time Date: 07/25/17 Time: 08:45 Short Stay Discharge - Short Stay Discharge Admitting Diagnosis/Reason for Visit: N18.6 Disposition: HOME/ ROUTINE Referrals: Edson White MD [Primary Care Provider] - Follow-up: 7-14 days in office Instructions: Arteriovenous Fistula Creation for Hemodialysis (DC) Additional Instructions (Diet, Activity): If you develop loss of sensation, or motor in your left hand please call the office or go to the ER immediately. Take over the counter pain medication for pain control.
[2017-07-25] MEDS ORDERED: ePHEDrine 50 mg/ml Inj ONE (09:14)
[2017-07-25] MEDS ORDERED: Sodium Chloride 0.9% 1,000 ML IV ONE (09:56)
--- NOTE | 2017-07-25 11:02 | CARD ---
APPROVED REPORT EKG Measurement Heart [id number] <Conclusion> Normal sinus rhythm Normal ECG
[2017-07-25] MEDS ORDERED: Sodium Chloride 0.9% 1,000 ML IV SCH (12:10)
--- NOTE | 2017-07-25 13:04 | PCM.SURG1 ---
Surgeon's Initial Post Op Note - Surgeon's Notes Surgeon: Dr. Soto Vocational Horticulture Instructor: Dr. Hsu Type of Anesthesia: General Endo Pre-Operative Diagnosis: ESRD Operative Findings: See operative dictation Post-Operative Diagnosis: ESRD Operation Performed: Brachio-basilic AVF Specimen/Specimens Removed: None Estimated Blood Loss: EBL {In ML}: 20 Blood Products Given: N/A Drains Used: No Drains Post-Op Condition: Good Date of Surgery/Procedure: 07/25/17 Time of Surgery/Procedure: 12:00
[2017-07-25] MEDS ORDERED: HYDROmorphone 0.5 mg/0.5 ml ISec IVP PRN (13:10)
[2017-07-25 14:57] VITALS: PULSE 87; O2SAT 97
[2017-07-25 15:30] VITALS: BP 136/82; TEMP 98.6
--- NOTE | 2017-08-08 08:33 | OP ---
PROCEDURE DATE: 07/25/2017 PREOPERATIVE DIAGNOSIS: End-stage renal disease. POSTOPERATIVE DIAGNOSIS: End-stage renal disease. PROCEDURE: Creation of left brachiocephalic arteriovenous fistula. SURGEON: Kaylin Soto MD TYPE OF ANESTHESIA: General. ANESTHESIA ADMINISTERED BY: Dr. Mao. DESCRIPTION OF PROCEDURE: Mr. Bhatia is a 56-year-old male patient with medical problems including end-stage renal disease. The patient had been followed up for sometimes by Nephrology until the time for dialysis preparing him creation of long-term access. The patient has venous map which shows small vessel in only the basilic vein, the left arm may be of reasonable length. Risks and benefits were explained to the patient and its considered in the small vein there and the patient agreed to proceed. The patient came to the operating room. He was lying in a supine position. He was prepped and draped in the usual sterile fashion. General anesthesia was given for him. We started with small incision in the lower case of the arm above the antecubital area, incision carried down to subcutaneous tissue down to the fascia and fascia along the line of the incision. We identified the brachial artery and ultrasound was done for the patient in the OR to confirm the cephalic vein was so small and we added final surgery too small, we went medially, opened the skin and dissected until we identified the basilic vein. We dissected the good segment of and ligated all the branches and with the brachial artery. first to control the brachial artery and used #11 blade to open the artery and using a #11 blade to extend the incision using blunt scissor. We did developed enough to be used for dialysis. We irrigated the wound using saline solution and closed with 3-0 Vicryl and 4-0 Monocryl. No complications during the procedure. Kaylin Soto MD [facility] # [id number]
== END 2017-07-25 17:30 | disposition home or self-care (01) ==
LOC: H.OPSURG 06:06
PROVIDERS: ATTEND Family Medicine
DX: N18.6 End stage renal disease (principal); I12.0 Hypertensive chronic kidney disease with stage 5 chronic kidney disease or end stage renal disease; J45.909 Unspecified asthma, uncomplicated; E78.5 Hyperlipidemia, unspecified; Z88.0 Allergy status to penicillin
CPT/HCPCS: 36415; 36821; 80048; 85027; 85610; 85730; 86850; 86900; 93005; C1757; J1644; J2001; J2250; J2704; J3010; J7030; J7040; J7120

== ENCOUNTER 2017-11-08 05:49 | Day surgery (SDC) | payer SELFPAY ==
[2017-07-24 15:04] VITALS: BMI 34.7
[2017-11-05 09:00] VITALS: RESP 20
[2017-11-08 06:36] VITALS: O2SAT 96
[2017-11-08] MEDS ORDERED: Bupivacaine HCl 0.5% PF (30 ml) Inj ONE (07:36)
[2017-11-08] MEDS ORDERED: Protamine 50mg/5mL Inj IV ONE (07:37)
[2017-11-08] MEDS ORDERED: Lidocaine 2% Inj (20ml) ONE (07:38)
--- NOTE | 2017-11-08 07:41 | CP.SDSHP ---
Same Day Surgery H & P - History Proposed Procedure: Transposition of AVF on L arm Pre-Op Diagnosis: ESRD needing HD access - Previous Medical/Surgical History Cardiac: Hypertension Endocrine/Metabolic: Renal Disease Previous Surgical History: AVF creation of L arm brachio basilic - Allergies Allergies: Allergies Penicillins Allergy (Verified 07/24/17 15:04) RASH - Physical Exam General Appearance: NAD Vital Signs: Vital Signs 11/08/17 11/08/17 06:35 06:38 Temperature 98.9 F Pulse Rate 92 H 92 H Respiratory 20 Rate Blood Pressure 123/74 O2 Sat by Pulse 96 Oximetry Mental Status: Alert & Oriented x3 Neuro: WNL Heart: WNL Lungs: WNL GI: WNL - {Optional Preform as Required} Abdomen: WNL Integument: Other (R chest permacath. L arm scar 5cm. no thrills.) ENT: WNL - Impression Impression: surgery cancelled. Pt. Evaluated Today:Candidate for Anesthesia & Procedure: No (hyperkalemia ) - Date & Time Date: 11/08/17 Time: 07:41 Short Stay Discharge - Short Stay Discharge Admitting Diagnosis/Reason for Visit: N18.6 Disposition: HOME/ ROUTINE Referrals: Kaylin Soto MD [Medical Doctor] - Edson White MD [Primary Care Provider] - Tashia Castillo MD [Staff Provider] - Instructions: End Stage Kidney Disease (DC) Additional Instructions (Diet, Activity): follow up with Dr. Castillo to medically optimize for surgery follow up with Dr. Soto to reschedule for AVF surgery
[2017-11-08 07:46] LABS: HEMOGLOBIN 12.4 g/dL (12.0-18.0); MEAN CELL VOLUME 99.6 fl (80.0-94.0); MEAN CORPUSCULAR HEMOGLOBIN 33.8 pg (27.0-31.0); RBC 3.65 Mil/uL (4.40-5.90); RED CELL DISTRIBUTION WIDTH 15.4 % (11.5-14.5); WHITE BLOOD COUNT 7.3 K/uL (4.8-10.8)
[2017-11-08] MEDS ORDERED: Propofol 10 mg/ml Inj (20 ML) ONE (08:09)
[2017-11-08] MEDS ORDERED: Midazolam 2 MG/2 ML VIAL ONE (08:10)
[2017-11-08 10:16] VITALS: BP 114/79; PULSE 75; TEMP 98.6
--- NOTE | 2017-11-09 12:31 | CARD ---
APPROVED REPORT EKG Measurement Heart [id number] <Conclusion> Normal sinus rhythm Possible Left atrial enlargement Borderline ECG
== END 2017-11-08 12:25 | disposition home or self-care (01) ==
LOC: H.OPSURG 05:49
PROVIDERS: ATTEND Surgery
DX: Z02.89 Encounter for other administrative examinations (principal)

== ENCOUNTER 2017-11-22 10:22 | Day surgery (SDC) | payer SELFPAY ==
[2017-07-24 15:04] VITALS: BMI 34.7
[2017-11-22 11:34] LABS: ALB/GLOB RATIO 1.1 (1.0-2.1); ALBUMIN 4.3 g/dL (3.5-5.0); CALCIUM 8.8 mg/dL (8.4-10.2)
[2017-11-22] MEDS ORDERED: Lactated Ringer's 1,000 ML IV ONE (12:30)
[2017-11-22 12:52] VITALS: RESP 18
[2017-11-22] MEDS ORDERED: Protamine 50mg/5mL Inj IV ONE (12:56)
[2017-11-22] MEDS ORDERED: Gentamicin 80 mg/2mL Inj. ONE (12:56)
[2017-11-22] MEDS ORDERED: Bupivacaine HCl 0.5% PF (30 ml) Inj ONE (12:57)
[2017-11-22] MEDS ORDERED: Clindamycin 600mg/50ml NS 600 MG/50 ML BAG IVPB ONE (12:57)
[2017-11-22] MEDS ORDERED: Lidocaine 2% MPF (5 ml) Inj ONE (13:36)
[2017-11-22] MEDS ORDERED: Ropivacaine 0.5% 30ML IV ONE (13:38)
[2017-11-22] MEDS ORDERED: Midazolam 2 MG/2 ML VIAL ONE (13:56)
[2017-11-22] MEDS: Lidocaine 2% Inj (20ml) ONE ×2 (14:25→14:33)
--- NOTE | 2017-11-22 16:38 | PCM.SURG1 ---
Surgeon's Initial Post Op Note - Surgeon's Notes Surgeon: Dr. Soto Barge Master: Dr. Gusman PGY2 Type of Anesthesia: Block Regional, Local Pre-Operative Diagnosis: AVF transposition Operative Findings: spasmodic and small basilic vein Post-Operative Diagnosis: see operative report Operation Performed: L AVF transposition Specimen/Specimens Removed: none Estimated Blood Loss: EBL {In ML}: 150 Blood Products Given: N/A Drains Used: No Drains Post-Op Condition: Good Date of Surgery/Procedure: 11/22/17 Time of Surgery/Procedure: 14:00
[2017-11-22] MEDS ORDERED: Oxycodone/Acetaminophen 5/325 mg Tab PO PRN (16:42)
[2017-11-22 17:27] VITALS: O2SAT 96
[2017-11-22 18:09] VITALS: BP 126/87; PULSE 73; TEMP 97.3
--- NOTE | 2018-01-03 06:45 | OP ---
PROCEDURE DATE: 11/22/2017 PREOPERATIVE DIAGNOSIS: End-stage renal disease. POSTOPERATIVE DIAGNOSIS: End-stage renal disease. PROCEDURE: Superficialization of left arteriovenous fistula. SURGEON: Kaylin Soto M.D. ANESTHESIOLOGIST: Toney Lewis MD ANESTHESIA: Local / IV Sedation INDICATIONS: Mr. Wero Gomez is a 57-year-old male patient with multiple medical problems including end-stage renal disease. The patient had creation of left brachiobasilic AV fistula and after couple of months, the fistula showed good thrill and the patient was brought for superficialization of the fistula. The risks and benefits were explained to the patient and he agreed to proceed. DESCRIPTION OF PROCEDURE: The patient came to the operating room. He was lying in a supine position. He was prepped and draped in usual sterile fashion. Sedation was given for the patient and lidocaine 1% used to infiltrate the skin over the fistula. I filled the fistula and opened the skin over. The incision was carried down through subcutaneous tissue to the fascia. We were able to identify the basilic vein with a good thrill in it. I extended the incision almost to the axilla and the proximal part of the fistula was a good size, but in the middle of the arm and other part, it was a very small vessel. We started to dissect it from the surrounding structures and likely the branches fistula. Hemostasis secured in the underlying tissue and I closed the fascia using 2-0 Vicryl for hemostasis. We irrigated the wound with saline solution and I flipped the skin and dissected from subcutaneous tissue to make an area with the vein subcutaneously to the exit easily. I put the vein in lazy S shape under the skin and subcutaneously I closed the skin using 3-0 Vicryl and particularly I closed using 4-0 Monocryl. There was still thrill in the fistula, but the small vein is concerning . The patient tolerated the procedure well. Dressing applied to the incision and the patient will be discharged home. No complications during the procedure. Kaylin Soto MD [facility] # [id number]
== END 2017-11-22 18:40 | disposition home or self-care (01) ==
LOC: H.OPSURG 10:22
PROVIDERS: ATTEND Surgery
DX: I13.2 Hypertensive heart and chronic kidney disease with heart failure and with stage 5 chronic kidney disease, or end stage renal disease (principal); E78.5 Hyperlipidemia, unspecified; N18.6 End stage renal disease
CPT/HCPCS: 36415; 36821; 80053; J1644; J2250; J3010; J7040; J7120

== ENCOUNTER 2017-12-20 11:44 | Observation (INO) | payer SELFPAY ==
[2017-12-20 11:49] VITALS: BMI 33.9
[2017-12-20] MEDS ORDERED: Sodium Chloride 0.9% 500 ML IV ONE ×2 (12:16→13:47)
[2017-12-20 13:00] LABS: VENOUS BLOOD GAS PCO2 54 mmHg (40-60); VENOUS BLOOD GAS PO2 32 mm/Hg (30-55); VENOUS BLOOD PH 7.31 (7.32-7.43)
--- NOTE | 2017-12-20 13:17 | RAD ---
HISTORY: SOB COMPARISON: 11/05/2017 FINDINGS: LUNGS: Shallow lung volumes. Trace left lateral discoid atelectasis. No dense consolidation. PLEURA: small left pleural effusion probable. No pneumothorax apparent. CARDIOVASCULAR: Mild cardiomegaly. Central pulmonary vasculature minimally engorged as before. Right dialysis catheter in place as before OSSEOUS STRUCTURES: Thoracic spondylosis. VISUALIZED UPPER ABDOMEN: Normal. OTHER FINDINGS: None. IMPRESSION: Cardiomegaly and minimal pulmonary venous congestion with right sided dialysis catheter status all similar appearing
[2017-12-20 13:21] LABS: ALBUMIN 4.5 g/dL (3.5-5.0); CALCIUM 8.4 mg/dL (8.4-10.2); TROPONIN I 0.026 ng/mL (0.00-0.120)
[2017-12-20 13:39] LABS: BASO % 0.5 % (0.0-2.0); EOS # 0.2 K/uL (0.0-0.7); EOS % 2.5 % (0.0-4.0); HEMOGLOBIN 13.1 g/dL (12.0-18.0); LYMPH # 1.6 K/uL (1.0-4.3); MEAN CELL VOLUME 102.1 fl (80.0-94.0); MEAN CORPUSCULAR HEMOGLOBIN 33.4 pg (27.0-31.0); MEAN CORPUSCULAR HGB CONC 32.8 g/dL (33.0-37.0); MEAN PLATELET VOLUME 8.5 fl (7.2-11.7); MONO # 0.6 K/uL (0.0-0.8); MONO % 8.5 % (0.0-10.0); NEUT # 5.1 K/uL (1.8-7.0); NEUT % 67.5 % (50.0-75.0); NRBC % 0.1 % (0.0-0.0); RBC 3.91 Mil/uL (4.40-5.90); RED CELL DISTRIBUTION WIDTH 15.1 % (11.5-14.5); WHITE BLOOD COUNT 7.5 K/uL (4.8-10.8)
[2017-12-20 13:44] LABS: PROTHROMBIN TIME 11.6 Seconds (9.8-13.1)
[2017-12-20 13:45] LABS: PARTIAL THROMBOPLASTIN TIME 31.1 Seconds (25.6-37.1)
--- NOTE | 2017-12-20 13:56 | ED PDOC ---
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 Denies abdominal pain, vomiting, diarrhea, cough or headache. Symptoms worsen with sitting or upright. Past Medical History Reviewed: Historical Data, Nursing Documentation, Vital Signs Vital Signs: Last Vital Signs Temp 98.1 F 12/22/17 12:38 Pulse 91 H 12/22/17 12:38 Resp 18 12/22/17 12:38 BP 123/85 12/22/17 12:38 Pulse Ox 95 12/22/17 12:38 - Medical History PMH: Asthma, HTN, Hypercholesterolemia, Hyperlipidemia, Chronic Kidney Disease - Surgical History Surgical History: Appendectomy - Family History Family History: States: Unknown Family Hx - Social History Current smoker - smoking cessation education provided: No - Home Medications Home Medications: Ambulatory Orders Medication Instructions Recorded Cholecalciferol (Vitamin D3) 2,000 unit PO DAILY 07/25/17 [Vitamin D3] Allopurinol [Zyloprim] 100 mg PO DAILY 11/05/17 Ferric Citrate [Auryxia] 3 tab PO TID 11/05/17 Folic Acid/Vit B Complex and C 1 tab PO DAILY 12/20/17 [Little-Gregorio Tablet] - Allergies Allergies/Adverse Reactions: Allergies Allergy/AdvReac Type Severity Reaction Status Date / Time Penicillins Allergy RASH Verified 12/20/17 12:27 Review of Systems Constitutional: Positive for: Weakness, Malaise ENT: Negative for: Ear Pain, Throat Pain Cardiovascular: Positive for: Palpitations, Light Headedness. Negative for: Chest Pain Respiratory: Negative for: Cough, Shortness of Breath Gastrointestinal: Negative for: Vomiting, Abdominal Pain, Diarrhea Genitourinary Male: Negative for: Dysuria Musculoskeletal: Negative for: Neck Pain, Back Pain Skin: Negative for: Rash, Lesions Neurological: Positive for: Weakness, Dizziness. Negative for: Numbness, Confusion, Seizures, Headache Physical Exam - Reviewed Nursing Documentation Reviewed: Yes Vital Signs Reviewed: Yes - Physical Exam Appears: Positive for: Well, Non-toxic, No Acute Distress Head Exam: Positive for: ATRAUMATIC, NORMAL INSPECTION, NORMOCEPHALIC Skin: Positive for: Normal Color, Warm, DRY Eye Exam: Positive for: EOMI, Normal appearance, PERRL ENT: Positive for: Normal ENT Inspection Neck: Positive for: Normal, Painless ROM Cardiovascular/Chest: Positive for: Regular Rate, Rhythm, Other (R HD catheter in place) Respiratory: Positive for: CNT, Normal Breath Sounds Gastrointestinal/Abdominal: Positive for: Normal Exam, Soft. Negative for: Tenderness, Guarding Back: Positive for: Normal Inspection Extremity: Positive for: Normal ROM, Other (L arm AV shunt intact) Neurologic/Psych: Positive for: Alert, Oriented. 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 This is because of the severity of symptoms shown, intensity of services needed, and/or the medical risk in this patient being treated as an outpatient. - POA Present On Arrival: None
--- NOTE | 2017-12-20 15:54 | CP.PCM.HP ---
History of Present Illness - History of Present Illness History of Present Illness: This is 57 y/o male with PMH of HTN and ESRD (HD on MWF) admitted to [facility] for evaluation and treatment of Generalized weakness, dizziness and hypotension. As per patient, he has been feeling weak and dizzy since last 8 days. Dizziness is associated with postural changes, nausea, ringing in ears and occasional palpitations. Patient denies any LOC, or blurred vision. Patient had HD yesterday. Patient is noncompliant with his medications. Patient denies any cheat pain, abdominal pain, urinary symptoms, f/c/v/d. Patient denies any recent travel, sick contact or body aches, reports good appetite and sleep. 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 PMD: [facility]/ Dr. Castillo PMH: HTN and ESRD (HD on MWF) PSH: Left arm AV fistula , appendectomy at young age Meds: As listed in rec Allg: Penicillin SH: Social alcohol use, denies smoking and illicit drug use FH: Father, alive, heart issues. Mother, Alive, DM. ROS: As per HPI ER Course: VS: 79/51, HR 109 Patient was found to be hypotensive in ER, not improved after fluid CBC: wnl CMP: BUN/Cr; 55/10.3 ABG: reviewed EKG: NSR, possible LAE CXR: Cardiomegaly and pulm venous congestion with R dialysis cath Present on Admission - Present on Admission Any Indicators Present on Admission: No History of DVT/PE: No History of Uncontrolled Diabetes: No Urinary Catheter: No Decubitus Ulcer Present: No Past Patient History - Infectious Disease Hx of Infectious Diseases: None - Past Medical History & Family History Past Medical History?: Yes - Past Social History Smoking Status: Never Smoked - CARDIAC Hx Cardiac Disorders: Yes (HTN,HLD) - PULMONARY Hx Respiratory Disorders: Yes (ASTHMA) - NEUROLOGICAL Hx Neurological Disorder: No - HEENT Hx HEENT Problems: No - RENAL Hx Chronic Kidney Disease: Yes - ENDOCRINE/METABOLIC Hx Endocrine Disorders: No - HEMATOLOGICAL/ONCOLOGICAL Hx Blood Disorders: No - INTEGUMENTARY Hx Dermatological Problems: No - MUSCULOSKELETAL/RHEUMATOLOGICAL Hx Musculoskeletal Disorders: No - GASTROINTESTINAL Hx Gastrointestinal Disorders: No - GENITOURINARY/GYNECOLOGICAL Hx Genitourinary Disorders: No - PSYCHIATRIC Hx Psychophysiologic Disorder: No - SURGICAL HISTORY Hx Appendectomy: Yes - ANESTHESIA Hx Anesthesia: Yes Hx Anesthesia Reactions: No Hx Malignant Hyperthermia: No Meds Allergies/Adverse Reactions: Allergies Allergy/AdvReac Type Severity Reaction Status Date / Time Penicillins Allergy RASH Verified 12/20/17 12:27 Physical Exam - Constitutional Appears: No Acute Distress - Head Exam Head Exam: NORMAL INSPECTION - Eye Exam Eye Exam: Normal appearance Pupil Exam: NORMAL ACCOMODATION - ENT Exam ENT Exam: Mucous Membranes Moist - Neck Exam Neck exam: Positive for: Normal Inspection Additional comments: Right upper chest Cath - Respiratory Exam Respiratory Exam: Clear to Auscultation Bilateral, NORMAL BREATHING PATTERN. absent: Accessory Muscle Use - Cardiovascular Exam Cardiovascular Exam: REGULAR RHYTHM, +S1, +S2 - GI/Abdominal Exam GI & Abdominal Exam: Normal Bowel Sounds, Soft. absent: Rebound, Rigid, Tenderness - Extremities Exam Extremities exam: Positive for: normal capillary refill, normal inspection Additional comments: Left arm fistula - Back Exam Back exam: NORMAL INSPECTION. absent: CVA tenderness (L), CVA tenderness (R) - Neurological Exam Neurological exam: Alert, CN II-XII Intact, Normal Gait, Oriented x3, Reflexes Normal - Psychiatric Exam Psychiatric exam: Normal Affect - Skin Skin Exam: Dry, Intact, Normal Color, Warm Results - Vital Signs Recent Vital Signs: Last Vital Signs Temp 98.7 F 12/20/17 14:41 Pulse 81 12/20/17 14:41 Resp 19 12/20/17 14:41 BP 109/73 12/20/17 14:41 Pulse Ox 98 12/20/17 14:41 - Labs Result Diagrams: 12/20/17 13:30 12/20/17 12:30 Labs: Laboratory Results - last 24 hr 12/20/17 12/20/17 12/20/17 12:30 12:36 13:30 WBC 7.5 RBC 3.91 L Hgb 13.1 Hct 39.9 MCV 102.1 H D MCH 33.4 H MCHC 32.8 L RDW 15.1 H Plt Count 189 MPV 8.5 Neut % (Auto) 67.5 Lymph % (Auto) 21.0 [place] % (Auto) 8.5 Eos % (Auto) 2.5 Baso % (Auto) 0.5 Neut # (Auto) 5.1 Lymph # (Auto) 1.6 [place] # (Auto) 0.6 Eos # (Auto) 0.2 Baso # (Auto) 0.0 PT INR APTT pO2 32 VBG pH 7.31 L VBG pCO2 54 VBG HCO3 23.8 VBG Total CO2 28.9 H VBG O2 Sat (Calc) 59.1 VBG Base Excess 0.0 VBG Potassium 4.4 Glucose 126 H Lactate 2.0 FiO2 21.0 Blood Gas Comments Lac=2.0 Crit Value Called To lio Licea do Crit Value Called By 22 Crit Value Read Back Y Blood Gas Notified Time 1259 Sodium 140 140.0 Potassium 5.0 Chloride 98 102.0 Carbon Dioxide 24 Anion Gap 23 H BUN 55 H Creatinine 10.3 H* D Est GFR ( Amer) 6 Est GFR (Non-Af Amer) 5 Random Glucose 99 Calcium 8.4 Total Bilirubin 1.3 AST 44 ALT 17 L D Alkaline Phosphatase 58 Troponin I 0.0260 Total Protein 9.2 H Albumin 4.5 Globulin 4.7 H Albumin/Globulin Ratio 1.0 Lipase 338 H Venous Blood Potassium 4.4 12/20/17 13:30 WBC RBC Hgb Hct MCV MCH MCHC RDW Plt Count MPV Neut % (Auto) Lymph % (Auto) [place] % (Auto) Eos % (Auto) Baso % (Auto) Neut # (Auto) Lymph # (Auto) [place] # (Auto) Eos # (Auto) Baso # (Auto) PT 11.6 INR 1.0 APTT 31.1 pO2 VBG pH VBG pCO2 VBG HCO3 VBG Total CO2 VBG O2 Sat (Calc) VBG Base Excess VBG Potassium Glucose Lactate FiO2 Blood Gas Comments Crit Value Called To Crit Value Called By Crit Value Read Back Blood Gas Notified Time Sodium Potassium Chloride Carbon Dioxide Anion Gap BUN Creatinine Est GFR ( Amer) Est GFR (Non-Af Amer) Random Glucose Calcium Total Bilirubin AST ALT Alkaline Phosphatase Troponin I Total Protein Albumin Globulin Albumin/Globulin Ratio Lipase Venous Blood Potassium Assessment & Plan - Assessment and Plan (Free Text) Assessment: 57 y/o male with PMH of HTN and ESRD (HD on MWF) admitted to [facility] for evaluation and treatment of Generalized weakness, dizziness and hypotension. Hypovolemia, unspecified - HD on MWF - Unresponsive to fluids in ER - IVF bolus PRN - Monitor VS - Admit to Telemetry Dizziness - Possibly due to postural changes vs dehaydration - Encourage PO intake HTN - Hold home medication due to hypovolemia and dizziness ESRD - Consult Dr. Castillo, recs appreciated - HD MWF DVT PPx - Lovenox 40mg SC
[2017-12-21] MEDS: Multivitamin Vitamin B Complex (Nephro-Vite) Tab PO SCH (08:23)
--- NOTE | 2017-12-21 08:25 | CARD ---
APPROVED REPORT EKG Measurement Heart [id number] MI [id number] <Conclusion> Normal sinus rhythm Possible Left atrial enlargement Borderline ECG
[2017-12-21] MEDS ORDERED: FOLIC ACID PO SCH (09:00)
[2017-12-21] MEDS ORDERED: VIT B COMPLEX AND C PO SCH (09:00)
--- NOTE | 2017-12-21 13:23 | CP.PCM.PN ---
Subjective - Date & Time of Evaluation Date of Evaluation: 12/21/17 Time of Evaluation: 08:10 - Subjective Subjective: Patient seen and examined this morning at bedside, NAD, no acute event overnight. Patient denies any dizziness, SOB, chest pain, palpitations, abdominal pain, urinary symptoms or f/c/n/v/d. Reports little weakness. Possible HD today Objective - Vital Signs/Intake and Output Vital Signs (last 24 hours): Temp Pulse Resp BP Pulse Ox 98.1 F 94 H 20 123/79 96 12/21/17 12:00 12/21/17 12:00 12/21/17 12:00 12/21/17 12:00 12/21/17 12:00 - Medications Medications: Current Medications Heparin Sodium (Porcine) (Heparin) 5,000 units SC Q8 CANELO PRN Reason: Protocol Last Admin: 12/21/17 08:24 Dose: 5,000 units Vitamin B Complex/Vit C/Folic Acid (Nephro-Gregorio) 1 tab PO DAILY CANELO Last Admin: 12/21/17 08:23 Dose: 1 tab - Labs Labs: 12/20/17 13:30 12/20/17 12:30 PT 11.6 Seconds (9.8-13.1) 12/20/17 13:30 INR 1.0 (0.9-1.2) 12/20/17 13:30 APTT 31.1 Seconds (25.6-37.1) 12/20/17 13:30 - Constitutional Appears: No Acute Distress - Head Exam Head Exam: NORMAL INSPECTION - Eye Exam Eye Exam: Normal appearance - ENT Exam ENT Exam: Mucous Membranes Moist - Neck Exam Neck Exam: Normal Inspection - Respiratory Exam Respiratory Exam: Clear to Ausculation Bilateral, NORMAL BREATHING PATTERN - Cardiovascular Exam Cardiovascular Exam: REGULAR RHYTHM, +S1, +S2 - GI/Abdominal Exam GI & Abdominal Exam: Soft, Normal Bowel Sounds - Extremities Exam Extremities Exam: Normal Capillary Refill, Normal Inspection. absent: Pedal Edema, Tenderness - Back Exam Back Exam: NORMAL INSPECTION. absent: CVA tenderness (L), CVA tenderness (R) - Neurological Exam Neurological Exam: Alert, Awake, Oriented x3 - Psychiatric Exam Psychiatric exam: Normal Affect - Skin Skin Exam: Normal Color Assessment and Plan - Assessment and Plan (Free Text) Assessment: A/P: 57 y/o male with PMH of HTN and ESRD (HD on MWF) admitted to [facility] for evaluation and treatment of Generalized weakness, dizziness and hypotension. Hypovolemia, unspecified - Unresponsive to fluids in ER - HD on MWF - IVF bolus PRN - Monitor VS, stable today - Possible HD today, will follow Post-HD Dizziness - Possibly due to postural changes vs dehaydration - Encourage PO intake - IV Fluids HTN - Hold home medication due to hypovolemia and dizziness ESRD - Consult Dr. Castillo, recs appreciated - HD MWF DVT PPx - Heparin 5000 SC Q8H
--- NOTE | 2017-12-22 00:08 | CP.PCM.CON ---
History of Present Illness - History of Present Illness History of Present Illness: REASONS FOR CONSULT : ESRD ON HD M W F This is 57 y/o male with PMH of HTN and ESRD (HD on MWF) admitted to [facility] for evaluation and treatment of Generalized weakness, dizziness and hypotension. As per patient, he has been feeling weak and dizzy since last 8 days. Dizziness is associated with postural changes, nausea, ringing in ears and occasional palpitations. Patient denies any LOC, or blurred vision. Patient had HD yesterday. Patient is noncompliant with his medications. Patient denies any cheat pain, abdominal pain, urinary symptoms, f/c/v/d. Patient denies any recent travel, sick contact or body aches, reports good appetite and sleep. 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 PMD: [facility]/ Dr. Castillo PMH: HTN and ESRD (HD on MWF) PSH: Left arm AV fistula , appendectomy at young age Meds: As listed in rec Allg: Penicillin SH: Social alcohol use, denies smoking and illicit drug use FH: Father, alive, heart issues. Mother, Alive, DM. ROS: As per HPI Past Patient History - Infectious Disease Hx of Infectious Diseases: None - Past Medical History & Family History Past Medical History?: Yes - Past Social History Smoking Status: Never Smoked - CARDIAC Hx Cardiac Disorders: Yes (HTN,HLD) - PULMONARY Hx Respiratory Disorders: Yes (ASTHMA) - NEUROLOGICAL Hx Neurological Disorder: No - HEENT Hx HEENT Problems: No - RENAL Hx Chronic Kidney Disease: Yes - ENDOCRINE/METABOLIC Hx Endocrine Disorders: No - HEMATOLOGICAL/ONCOLOGICAL Hx Blood Disorders: No - INTEGUMENTARY Hx Dermatological Problems: No - MUSCULOSKELETAL/RHEUMATOLOGICAL Hx Musculoskeletal Disorders: No - GASTROINTESTINAL Hx Gastrointestinal Disorders: No - GENITOURINARY/GYNECOLOGICAL Hx Genitourinary Disorders: No - PSYCHIATRIC Hx Psychophysiologic Disorder: No - SURGICAL HISTORY Hx Appendectomy: Yes - ANESTHESIA Hx Anesthesia: Yes Hx Anesthesia Reactions: No Hx Malignant Hyperthermia: No Meds Allergies/Adverse Reactions: Allergies Allergy/AdvReac Type Severity Reaction Status Date / Time Penicillins Allergy RASH Verified 12/20/17 12:27 - Medications Medications: Current Medications Heparin Sodium (Porcine) (Heparin) 5,000 units SC Q8 CANELO PRN Reason: Protocol Last Admin: 12/21/17 17:35 Dose: 5,000 units Vitamin B Complex/Vit C/Folic Acid (Nephro-Gregorio) 1 tab PO DAILY CANELO Last Admin: 12/21/17 08:23 Dose: 1 tab Results - Vital Signs Recent Vital Signs: Last Vital Signs Temp 97.8 F 12/21/17 20:07 Pulse 89 12/21/17 20:07 Resp 18 12/21/17 20:07 BP 135/92 H 12/21/17 20:07 Pulse Ox 99 12/21/17 20:07 - Labs Result Diagrams: 12/20/17 13:30 12/20/17 12:30 Assessment & Plan - Assessment and Plan (Free Text) Assessment: ESRD ON HD M W F MMP P : HD TODAY AND M W F C/O CURRENT CARE C/O PRESENT MANAGEMENT
--- NOTE | 2017-12-22 07:50 | CP.PCM.DIS ---
Provider - Provider Date of Admission: 12/20/17 13:50 Attending physician: Samantha Padilla MD Primary care physician: MDMatt Consults: NephDr. Anna alonso Time Spent in preparation of Discharge (in minutes): 40 Diagnosis - Discharge Diagnosis (1) Hypovolemia due to dehydration Status: Acute Comment: Admitted for Hypotension, unresponsive to fluid in ER (2) ESRD (end stage renal disease) on dialysis Status: Chronic Comment: HD [facility] Hospital Course - Lab Results Lab Results: Most Recent Lab Values WBC 7.5 K/uL (4.8-10.8) 12/20/17 13:30 RBC 3.91 Mil/uL (4.40-5.90) L 12/20/17 13:30 Hgb 13.1 g/dL (12.0-18.0) 12/20/17 13:30 Hct 39.9 % (35.0-51.0) 12/20/17 13:30 MCV 102.1 fl (80.0-94.0) H D 12/20/17 13:30 MCH 33.4 pg (27.0-31.0) H 12/20/17 13:30 MCHC 32.8 g/dL (33.0-37.0) L 12/20/17 13:30 RDW 15.1 % (11.5-14.5) H 12/20/17 13:30 Plt Count 189 K/uL (130-400) 12/20/17 13:30 MPV 8.5 fl (7.2-11.7) 12/20/17 13:30 Neut % (Auto) 67.5 % (50.0-75.0) 12/20/17 13:30 Lymph % (Auto) 21.0 % (20.0-40.0) 12/20/17 13:30 [place] % (Auto) 8.5 % (0.0-10.0) 12/20/17 13:30 Eos % (Auto) 2.5 % (0.0-4.0) 12/20/17 13:30 Baso % (Auto) 0.5 % (0.0-2.0) 12/20/17 13:30 Neut # (Auto) 5.1 K/uL (1.8-7.0) 12/20/17 13:30 Lymph # (Auto) 1.6 K/uL (1.0-4.3) 12/20/17 13:30 [place] # (Auto) 0.6 K/uL (0.0-0.8) 12/20/17 13:30 Eos # (Auto) 0.2 K/uL (0.0-0.7) 12/20/17 13:30 Baso # (Auto) 0.0 K/uL (0.0-0.2) 12/20/17 13:30 PT 11.6 Seconds (9.8-13.1) 12/20/17 13:30 INR 1.0 (0.9-1.2) 12/20/17 13:30 APTT 31.1 Seconds (25.6-37.1) 12/20/17 13:30 pO2 32 mm/Hg (30-55) 12/20/17 12:36 VBG pH 7.31 (7.32-7.43) L 12/20/17 12:36 VBG pCO2 54 mmHg (40-60) 12/20/17 12:36 VBG HCO3 23.8 mmol/L 12/20/17 12:36 VBG Total CO2 28.9 mmol/L (22-28) H 12/20/17 12:36 VBG O2 Sat (Calc) 59.1 % (40-65) 12/20/17 12:36 VBG Base Excess 0.0 mmol/L (0.0-2.0) 12/20/17 12:36 VBG Potassium 4.4 mmol/L (3.6-5.2) 12/20/17 12:36 Sodium 140.0 mmol/L (132-148) 12/20/17 12:36 Chloride 102.0 mmol/L (98-107) 12/20/17 12:36 Glucose 126 mg/dL (75-110) H 12/20/17 12:36 Lactate 2.0 mmol/L (0.7-2.1) 12/20/17 12:36 FiO2 21.0 % 12/20/17 12:36 Blood Gas Comments Lac=2.0 12/20/17 12:36 Crit Value Called To lio Licea do 12/20/17 12:36 Crit Value Called By 12/20/17 12:36 Crit Value Read Back Y 12/20/17 12:36 Blood Gas Notified Time 1259 12/20/17 12:36 Sodium 140 mmol/l (132-148) 12/20/17 12:30 Potassium 5.0 MMOL/L (3.6-5.0) 12/20/17 12:30 Chloride 98 mmol/L (98-107) 12/20/17 12:30 Carbon Dioxide 24 mmol/L (22-30) 12/20/17 12:30 Anion Gap 23 (10-20) H 12/20/17 12:30 BUN 55 mg/dl (9-20) H 12/20/17 12:30 Creatinine 10.3 mg/dl (0.8-1.5) H* D 12/20/17 12:30 Est GFR ( Amer) 6 12/20/17 12:30 Est GFR (Non-Af Amer) 5 12/20/17 12:30 Random Glucose 99 mg/dL (75-110) 12/20/17 12:30 Calcium 8.4 mg/dL (8.4-10.2) 12/20/17 12:30 Total Bilirubin 1.3 mg/dl (0.2-1.3) 12/20/17 12:30 AST 44 U/L (17-59) 12/20/17 12:30 ALT 17 U/L (21-72) L D 12/20/17 12:30 Alkaline Phosphatase 58 U/L (38-126) 12/20/17 12:30 Troponin I 0.0260 ng/mL (0.00-0.120) 12/20/17 12:30 Total Protein 9.2 G/DL (6.3-8.2) H 12/20/17 12:30 Albumin 4.5 g/dL (3.5-5.0) 12/20/17 12:30 Globulin 4.7 gm/dL (2.2-3.9) H 12/20/17 12:30 Albumin/Globulin Ratio 1.0 (1.0-2.1) 12/20/17 12:30 Lipase 338 U/L (23-300) H 12/20/17 12:30 Venous Blood Potassium 4.4 mmol/L (3.6-5.2) 12/20/17 12:36 - Hospital Course Hospital Course: 57 y/o male with PMH of HTN and ESRD (HD on MWF) admitted to [facility] for evaluation and treatment of Generalized weakness, dizziness and hypotension. Patient's BP was unresponsive to fluids in ER, his BP medications were hold by primary team. Dr. Castillo was consulted, patient received his HD, BP was monitored post HD. Patient was discharge home with instructions to Hold Norvasc if BP is less than 130 systolic (Patient only refilled Norvasc in last 3 months as per pharmacy, non-compliant with meds), C/w HD MWF. ER precautions discussed with patient. Discharge Exam - Head Exam Head Exam: NORMAL INSPECTION - Eye Exam Eye Exam: Normal appearance Pupil Exam: NORMAL ACCOMODATION - Respiratory Exam Respiratory Exam: Clear to PA & Lateral, NORMAL BREATHING PATTERN Additional comments: Right upper chest port (HD) - Cardiovascular Exam Cardiovascular Exam: REGULAR RHYTHM, +S1, +S2 - GI/Abdominal Exam GI & Abdominal Exam: Hernia (umbilical hernia), Normal Bowel Sounds, Soft. absent: Distended, Tenderness - Rectal Exam Rectal Exam: NORMAL INSPECTION - Extremities Exam Extremities exam: normal capillary refill, normal inspection - Back Exam Back exam: NORMAL INSPECTION. absent: CVA tenderness (L), CVA tenderness (R) - Neurological Exam Neurological exam: Alert, Oriented x3 - Psychiatric Exam Psychiatric exam: Normal Affect - Skin Skin Exam: Normal Color Discharge Plan - Follow Up Plan Condition: FAIR Disposition: HOME/ ROUTINE Additional Instructions: Appt with Dr. Trujillo on 12/27/17 at 3:20pm Referrals: Boni Cunningham MD [Resident] - Gonzalo Trujillo MD [Resident] -
[2017-12-22 08:33] LABS: SQUAMOUS EPITHIAL 1 /hpf (0-5); URINE BACTERIA RARE (<OCC); URINE BILIRUBIN NEGATIVE (NEGATIVE); URINE BLOOD SMALL (NEGATIVE); URINE CLARITY SLIGHTY-CLOUDY (Clear); URINE COLOR YELLOW (YELLOW); URINE GLUCOSE (UA) 50 mg/dL (Normal); URINE LEUKOCYTE ESTERASE SMALL Leu/uL (Negative); URINE PROTEIN 100 mg/dL (NEGATIVE); URINE UROBILINOGEN 0.2-1.0 mg/dL (0.2-1.0)
[2017-12-22] MEDS: Multivitamin Vitamin B Complex (Nephro-Vite) Tab PO SCH (09:18)
[2017-12-22 12:39] VITALS: BP 123/85; RESP 18; TEMP 98.1
[2017-12-22 13:46] LABS: HEPATITIS B SURFACE AG Negative (NEGATIVE)
[2017-12-22 13:51] LABS: HEPATITIS B CORE AB NEGATIVE (NEGATIVE)
[2017-12-26 13:43] VITALS: O2SAT 87
[2017-12-26 13:44] VITALS: PULSE 96
== END 2017-12-22 15:00 | disposition home or self-care (01) ==
LOC: H.ER 11:44 → H.ERHOLD 13:50 → H.TEL 15:33
PROVIDERS: ADMIT Family Medicine Geriatric Medicine; ATTEND Family Medicine Geriatric Medicine
DX: E86.1 Hypovolemia (principal); E86.0 Dehydration; N18.6 End stage renal disease; I12.0 Hypertensive chronic kidney disease with stage 5 chronic kidney disease or end stage renal disease; I95.89 Other hypotension; Z91.14 Patient's other noncompliance with medication regimen; Z99.2 Dependence on renal dialysis; E78.5 Hyperlipidemia, unspecified; E78.00 Pure hypercholesterolemia, unspecified; J45.909 Unspecified asthma, uncomplicated; Z88.0 Allergy status to penicillin
CPT/HCPCS: 36415; 71045; 80053; 81003; 82803; 83690; 84484; 85025; 85610; 85730; 86705; 86706; 87340; 90935; 93005; 96360; 96372; 99285; G0378; J1644; J7040